=== PATIENT | male | born 1955 | race Caucasian/White ===

== ENCOUNTER 2020-01-10 11:30 | Outpatient (REF) | payer BC, SELFPAY ==
[2020-01-10 12:02] LABS: COVID-19 Test Negative (Negative)
== END 2020-01-10 11:31 | disposition home or self-care (01) ==
LOC: HO.LAB 11:30
PROVIDERS: Visit Provider Internal Medicine
DX: Z20.828 Contact with and (suspected) exposure to other viral communicable diseases (principal)
CPT/HCPCS: 87635

== ENCOUNTER 2020-01-14 13:11 | Outpatient (REF) | payer BC, SELFPAY ==
[2020-01-14 13:55] LABS: COVID-19 Test Negative (Negative)
== END 2020-01-14 13:12 | disposition home or self-care (01) ==
LOC: HO.LAB 13:11
PROVIDERS: Visit Provider Internal Medicine
DX: Z20.828 Contact with and (suspected) exposure to other viral communicable diseases (principal)
CPT/HCPCS: 87635

== ENCOUNTER → 2020-01-29 13:03 | Outpatient (REF) | payer BC, SELFPAY ==
--- NOTE | 2020-01-29 13:09 | CA_ITS ---
Transthoracic Echocardiogram Patient (Last, First, Middle): Caleb Zheng, Gender: Male Date of : 1955 Age: 64 Procedure Date: 01/29/2020 Procedure Type: Transthoracic Echocardiogram Location: OP Height: 182.88 cm Weight: 86.18 kg BSA: 2.08 m2 Heart Rate: bpm BP: 110 / 72 mmHg Floorperson: MABEL Schmidt MD: Lauryn Orellana [employer] SUPERVISOR Yarding Engineer: Rogelio An MD Symptoms: PALPITATIONS Study Quality: Good ECG Rhythm: Sinus Conclusions: - 1. Normal LV systolic function with grade 1 diastolic dysfunction 2. Mildly calcified aortic valve with mild aortic regurgitation 3. Mildly dilated ascending aorta, consider CTA of the chest 4. Normal RV systolic pressure 5. No pericardial effusion Findings Left Ventricle Normal left ventricular size, thickness, and systolic function. The visually estimated ejection fraction is between 60-65%. Spectral Doppler is indicative of an impaired relaxation filling pattern. E/E prime ratio is <8, consistent with normal filling pressures. Evidence suggests grade I (mild) diastolic dysfunction. Right Ventricle Normal right ventricular cavity size and systolic function. Atria Both atria are normal in size. There is lipomatous hypertrophy of the interatrial septum. There is no evidence of interatrial shunt. Aortic Valve There is mild calcification of the aortic valve. There is mild thickening of the aortic valve. There is no aortic valve stenosis. There is mild aortic valve regurgitation. Mitral Valve Normal mitral valve structure and function. There is no mitral valve regurgitation. There is no mitral valve stenosis. Pulmonic Valve The pulmonic valve is likely normal. Tricuspid Valve Normal tricuspid valve structure. There is trace tricuspid valve regurgitation. The right ventricular systolic pressure is normal. The right ventricular systolic pressure is 30 mmHg. Normal right atrial pressure. There is no evidence of pulmonary hypertension. Great Vessels The pulmonary artery was not well visualized. There is mild dilatation of the sinuses of Valsalva measuring 4.00 cm and mild dilatation of the ascending aorta measuring 3.87 cm. Venous The inferior vena cava is normal in size and collapses greater than 50% with inspiration. Pericardium/Pleural There is no evidence of pericardial effusion. Prior Study Comparison No prior study available for comparison. Measurements 2D Linear Measurements RVIDd: 3.48 RVIDd Index: 1.67 IVSd: 1.03 0.6-0.9/0.6-1.0 cm LVIDd: 5.17 3.9-5.3/4.2-5.9 cm LVIDd Index: 2.49 2.4-3.2/2.2-3.1 cm/m2 LVIDs: 3.62 2.0-3.6 cm LVPWd: 0.67 0.7-1.1 cm Ao Root: 4.00 2.1-3.5 cm LA Diam: 3.70 2.7-3.8/3.0-4.0 cm LAIDs Index: 1.78 1.5-2.3 cm/m2 LV Mass: 193.94 67-162/88-224 g LV Mass Index: 93.24 43-95/49-115 g/m2 LVOT Diam: 2.20 3.0+(-)1.3 cm 2D Systolic Function EF 4C: 56.40 >55% EF 2C: 55.00 >55% Mitral Valve MV Pk E: 0.59 MV PK A: 1.20 MV Decel Time: 195.00 E/A: 0.50 E'Lateral: 6.42 E'Medial: 6.31 E/E' Med: 9.40 E/E' Lat: 9.30 Aortic Valve AoV Pk Janes: 1.43 AoV Mn Janes: 0.98 AoV VTI: 0.23 AoV Pk Grad: 8.00 Aov Mn Grad: 4.00 EDSON Cont.VTI: 2.55 LVOT LVOT Pk Janes: 1.12 LVOT Mn Janes: 0.67 LVOT VTI: 0.16 LVOT Pk Grad: 5.00 LVOT Mn Grad: 2.00 LVOT Diam: 2.20 LVOT Area: 3.80 Diastolic Function MV Pk E: 0.59 MV Pk A: 1.20 E/A: 0.50 E'Medial: 6.31 E/E' Med: 9.40 E' Laterial: 6.42 E/E' Lat: 9.30 Tricuspid Valve TR Pk Janes: 2.32 TR Pk Grad: 22.00 RA Press: 8.00 RVSP: 30.00 Great Vessels Aorta Ao Root-2D: 4.00 2.0-3.7 cm Sinus of Valsalva: 4.00 2.0-3.5 cm Ao Asc: 3.87 2.1-3.4 cm Ao Arch: 2.70 Updated in Other Vendor System with Status of Final Rogelio An MD electronically signed on 01/30/2020 10:05:03 AM with status of Final
== END ==
LOC: HO.CARD 13:03
PROVIDERS: PCP Nurse Practitioner Family; Visit Provider Nurse Practitioner Family
DX: R00.2 Palpitations (principal)
CPT/HCPCS: 93306

== ENCOUNTER 2020-01-29 16:21 | Outpatient (REF) | payer BC, SELFPAY ==
--- NOTE | 2020-01-29 | MR_ITS ---
EXAMINATION: MR BRAIN WITHOUT AND WITH CONTRAST CLINICAL INFORMATION: Left pulsatile tinnitus. Acoustic neuroma. COMPARISON: There are no prior studies available for comparison at time of dictation. TECHNIQUE: Multiplanar, multisequence MRI of the brain was obtained before and after the intravenous administration of 9 mL Gadavist. FINDINGS: The VII and VIII cranial nerve complexes are normal in course and caliber. No signal abnormality is visualized within the inner ear structures on the precontrast axial T1-weighted sequence. Fluid signal is preserved within the cochlea, semicircular canals, and vestibule on the high-resolution axial CISS sequence. No cerebellopontine angle lesion is noted. There is no abnormal labyrinthine or intracanalicular enhancement on postcontrast imaging. No diffusion abnormality is seen. Brain parenchymal signal is unremarkable. There is mild commensurate prominence of the ventricles and sulci. No mass effect or midline shift is evident. No extra-axial fluid collections are noted. The cerebellum appears normal. On postcontrast imaging, there is no abnormal parenchymal or leptomeningeal enhancement. There is no abnormal susceptibility signal on the gradient images. The craniovertebral junction, marrow signal, and midline structures are normal. The visualized portions of the major intracranial flow-voids at the level of the [place] are preserved. The vertebral arteries are dolichoectatic, and causes mass effect on the left medulla. The dural venous sinus flow-voids are maintained. The mastoid air cells are well-aerated. There are retention cysts in the bilateral maxillary sinuses. MR/MR head/brain wo/w con IMPRESSION: 1. There are no acute bleeds or infarcts. There are no masses or areas of abnormal enhancement. 2. The CP angles and internal auditory canals appear normal bilaterally. 3. 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
[2020-01-29 14:15] LABS: Blood Urea Nitrogen 18 mg/dL (9-16); Estimated Glomerular Filt Rate > 60
== END 2020-01-29 16:22 | disposition home or self-care (01) ==
LOC: HO.MRI 16:21
PROVIDERS: Visit Provider Otolaryngology
DX: D33.3 Benign neoplasm of cranial nerves (principal); H93.12 Tinnitus, left ear
CPT/HCPCS: 70553; 82565; 84520; A9585

== ENCOUNTER 2020-02-24 09:18 | Outpatient (REF) | payer BC, SELFPAY ==
[2020-02-24 09:54] LABS: COVID-19 Test Negative (Negative); IDNOW Serial# 9DD0AD1C
== END 2020-02-24 09:19 | disposition home or self-care (01) ==
LOC: HO.LAB 09:18
PROVIDERS: PCP Nurse Practitioner Family; Visit Provider Internal Medicine
DX: Z20.828 Contact with and (suspected) exposure to other viral communicable diseases (principal)
CPT/HCPCS: 87635

== ENCOUNTER 2020-04-19 10:43 | Outpatient (REF) | payer OTHER, SELFPAY ==
[2020-04-19 11:23] LABS: COVID-19 Test Negative (Negative)
== END 2020-04-19 10:44 | disposition home or self-care (01) ==
LOC: HO.LAB 10:43
PROVIDERS: Visit Provider Internal Medicine
DX: Z20.822 Contact with and (suspected) exposure to COVID-19 (principal)
CPT/HCPCS: 36415; 87635

== ENCOUNTER 2020-04-25 11:07 | Outpatient (REF) | payer BC, SELFPAY ==
--- NOTE | ~2020-04-25 | XR_ITS ---
EXAMINATION: XR CHEST CLINICAL INFORMATION: Cough. COMPARISON: Chest 07/08/2019 TECHNIQUE: Frontal view of the chest was obtained. FINDINGS: No significant abnormality is noted involving the heart, lungs, mediastinum, bony thorax or soft tissues. XR/XR chest 1V IMPRESSION: Unremarkable chest examination.
[2020-04-25 12:41] LABS: Influenza A PCR NEGATIVE (Negative); Influenza B PCR NEGATIVE (Negative); Resp Syncy Virus RNA Qual PCR NEGATIVE (Negative); SARS COV2 PCR INHOUSE NEGATIVE (Negative)
== END 2020-04-25 11:08 | disposition home or self-care (01) ==
LOC: HO.LAB 11:07
PROVIDERS: PCP Family Medicine; Visit Provider Nurse Practitioner Primary Care
DX: Z20.822 Contact with and (suspected) exposure to COVID-19 (principal); R05 Cough
CPT/HCPCS: 0241U; 36415; 71045

== ENCOUNTER 2021-01-27 16:13 | Outpatient (REF) | payer BC, SELFPAY ==
[2021-01-27 16:41] LABS: COVID-19 Test Negative (Negative)
== END 2021-01-27 16:14 | disposition home or self-care (01) ==
LOC: HO.LAB 16:13
PROVIDERS: Visit Provider Internal Medicine
DX: Z20.822 Contact with and (suspected) exposure to COVID-19 (principal)
CPT/HCPCS: 36415; 87635; C9803

== ENCOUNTER 2021-03-27 13:53 | Outpatient (REF) | payer BC, SELFPAY ==
[2021-03-27 14:20] LABS: COVID-19 Test Negative (Negative); IDNOW Serial# 08D9AD1C
== END 2021-03-27 13:54 | disposition home or self-care (01) ==
LOC: HO.LAB 13:53
PROVIDERS: Visit Provider Internal Medicine
DX: Z20.822 Contact with and (suspected) exposure to COVID-19 (principal)
CPT/HCPCS: 87635

== ENCOUNTER 2021-04-02 11:31 | Outpatient (REF) | payer BC, SELFPAY ==
[2021-04-02 14:35] LABS: COVID-19 Test Negative (Negative); IDNOW Serial# 08D9AD1C
== END 2021-04-02 11:32 | disposition home or self-care (01) ==
LOC: HO.LAB 11:31
PROVIDERS: PCP Family Medicine; Visit Provider Internal Medicine
DX: Z20.822 Contact with and (suspected) exposure to COVID-19 (principal)
CPT/HCPCS: 87635

== ENCOUNTER 2021-04-09 18:12 | Emergency (ER) | payer BC, MEDICARE, SELFPAY ==
--- NOTE | ~2021-04-09 | CT_ITS ---
EXAMINATION: CT ANGIOGRAM OF THE CHEST WITH AND WITHOUT CONTRAST (CT PULMONARY ANGIOGRAM FOR PE) CLINICAL INFORMATION: Reason for Exam Elevated D-dimer. History of PE. SOB. COMPARISON: CT dated 06/16/2019 TECHNIQUE: Prior to contrast administration, noncontrast localization images were obtained. Subsequently, multidetector volumetric imaging was performed from the thoracic inlet to below the diaphragms following the administration of 65 mL Omnipaque 350 intravenous contrast. No contrast reaction reported Sagittal, coronal, and MIP oblique sagittal reformatted images were obtained on the CT workstation, uploaded to PACS, and reviewed. This CT examination was performed using dose optimization techniques as appropriate, variously including the following: *Automated exposure control *Adjustment of mA and/or kV according to patient size (this includes techniques or standardized protocols for targeted exams where dose is matched to indication/reason for exam; i.e. extremities or head) *Use of iterative reconstruction technique Total exam dose-length product 292 mGy-cm FINDINGS: QUALITY OF STUDY/CONTRAST BOLUS: Satisfactory to the mid segmental level, limited slightly by bolus timing and breathing artifact at the lung bases. PULMONARY ARTERIES: No central or segmental pulmonary emboli. THORACIC AORTA: No aneurysm or dissection. LUNG: No focal consolidation. Central airways are clear. Small juxtapleural nodules at the right lung apex on images 51 and 50 of series 7 are unchanged dating back to the prior study and measure 4 mm in average diameter, benign by time criteria. PLEURA: No pleural effusion or pneumothorax. Mild apical scarring. MEDIASTINUM: Normal heart size. No pericardial effusion. No hilar or mediastinal lymphadenopathy. No evidence of septal bowing or right heart strain. CHEST WALL/AXILLA: No axillary or internal mammary lymphadenopathy. OSSEOUS STRUCTURES: Mild multilevel degenerative spondylosis in the thoracic spine with slight scoliotic curvature. No acute fractures or aggressive osseous abnormalities are identified. UPPER ABDOMEN: Cholelithiasis. No CT findings of acute cholecystitis. There is a large 6 cm simple appearing right renal cysts with a density of 1 Hounsfield unit. No recommend imaging follow-up. No reflux of contrast into the hepatic veins to suggest elevated right heart pressures. CT/CT angio chest PE protocol IMPRESSION: 1. No acute cardiopulmonary findings. No evidence of pulmonary emboli. 2. Cholelithiasis without evidence of acute cholecystitis. VTE: negative
--- NOTE | 2021-04-09 18:46 | ECG_ITS ---
Test Reason : pe? Blood Pressure : / mmHG Vent. Rate : 085 BPM Atrial Rate : 085 BPM P-R Int : 180 ms QRS Dur : 076 ms QT Int : 362 ms P-R-T Axes : 068 -38 063 degrees QTc Int : 430 ms Normal sinus rhythm Left axis deviation Abnormal ECG When compared with ECG of 16-JUN-2019 12:53, No significant change was found Referred By: Nirmala Paiz Electronically Signed By:Kirk Ortega
[2021-04-09 19:01] LABS: MANUAL DIFF FLAG NO
[2021-04-09 19:03] LABS: Basophils Percent Auto 0.6 % (0-2); Eosinophils Absolute Auto 0.2 X10*3/uL (0.0-0.4); Eosinophils Percent Auto 2.1 % (0-4); Hematocrit 43.6 % (42.0-52.0); Hemoglobin 14.7 g/dl (14.0-18.0); Imm Gran Abs Auto 0.06 X10*3/uL (0.00-0.03); Imm Gran Pct Auto 0.8 % (0.0-0.4); Lymphocytes Absolute Auto 0.9 X10*3/uL (1.2-4.9); Lymphocytes Percent Auto 12.4 % (20-40); Mean Corpuscular HGB Conc 33.7 g/dl (31.0-36.0); Mean Corpuscular Hemoglobin 30.1 pg (27.0-33.0); Mean Corpuscular Volume 89.2 fL (80.0-98.0); Monocytes Absolute Auto 0.8 X10*3/uL (0.1-1.2); Monocytes Percent Auto 10.9 % (2-11); Neutrophils Absolute Auto 5.2 x10*3/uL (2.0-8.3); Neutrophils Percent Auto 73.2 % (45-73); Platelet Count 293 X10*3/uL (160-400); Red Blood Count 4.89 X10*6/uL (4.60-5.80); Red Cell Distribution Width 12.7 % (11.0-16.0); White Blood Count 7.2 X10*3/uL (4.8-10.8)
[2021-04-09 19:06] VITALS: BP 133/89; PULSE 97; RESP 16; TEMP 36.9; O2SAT 98; BMI 25.7
[2021-04-09 19:16] LABS: Anion Gap 13 (12-20); Blood Urea Nitrogen 24 mg/dL (9-16); Calcium 9.6 mg/dL (8.4-10.2); Carbon Dioxide 28 mmol/L (22-29); Chloride 107 mmol/L (96-108); Creatinine Clr Calc Pharmacy 90.4; Estimated Glomerular Filt Rate > 60; Glucose Random 100 mg/dL (60-115); Potassium 4.6 mmol/L (3.3-5.1); Sodium 143 mmol/L (135-145)
[2021-04-09 19:23] LABS: B Type Natriuretic Peptide < 10 pg/mL (<100); Troponin-I High Sensitivity < 3.5 ng/L (<3.5-35.0)
[2021-04-09 19:26] LABS: INTERNATIONAL NORM RATIO 1.1 (0.9-1.1); Prothrombin Time 12.2 SEC (9.9-13.0)
[2021-04-09] MEDS: iohexoL 350 MG/ML 100 ML INFUS..BTL 65 ML IV (19:26)
[2021-04-09 19:52] LABS: Partial Thromboplastin Time 31.4 SEC (24.1-38.0)
--- NOTE | 2021-04-09 20:32 | ED_ITS ---
HPI - General Adult General Chief complaint: General Medical Stated complaint: SOB, Abnormal Labs Time Seen by Provider: 04/09/21 18:21 Source: patient Mode of arrival: ambulatory History of Present Illness HPI narrative: 66-year-old male with a past medical history of PE no longer on anticoagulation presenting to the ED complaining of exertional SOB x a few days and nonproductive cough. patient had outpatient labs done with PCP earlier today which showed elevated D-dimer to 1365 and was recommended ED evaluation to rule out PE. Denies fever, chills, chest pain, nausea / vomiting, pedal edema, recent travel, leg swelling, calf pain Onset (ago): day(s) Related Data Allergies Allergy/AdvReac Type Severity Reaction Status Date / Time No Known Allergies Allergy Unverified 12/06/19 17:50 [No Known Allergies*] Review of Systems Review of Systems: Constitutional: No Fever, No Chills, No Fatigue, No Malaise ENT/Mouth: No Ear Pain, No Nasal Congestion, No sore throat, No Rhinorrhea Eyes: No Eye Pain, No Swelling, No Redness Cardiovascular: No Chest Pain, No SOB, + Dyspnea on Exertion, No Orthopnea, No Edema, No Palpitations Respiratory: No Cough, No Sputum, No Wheezing, No Smoke Exposure, No Dyspnea Gastrointestinal: No Nausea, No Vomiting, No Diarrhea, No Constipation, No Abdominal pain Genitourinary: No Dysuria, No Urinary Frequency, No Hematuria, No Flank Pain Musculoskeletal: No joint pain, No Myalgias, No Joint Swelling Skin: No Skin Lesions, No rash Neuro: No Weakness, NNo Dizziness, No Headache Yes all other systems are reviewed and are negative [facility] Past Medical History Attestation statement: The following information was validated with the patient. Social History Social History Advance Directives: No Advance Directives Information Provided: No Physical Exam Vital Signs: Vital Signs: Last Vital Signs Temp 98.5 F 04/09/21 19:06 Pulse 97 04/09/21 19:06 Resp 16 04/09/21 19:06 BP 133/89 04/09/21 19:06 Pulse Ox 98 04/09/21 19:06 BMI result Body Mass Index 25.7 Const: General: cooperative, healthy appearing and no acute distress O rientation/consciousness: patient oriented x3 Limitations: no limitations HENMT: Head: Yes normal to inspection and Yes atraumatic Ears: hearing grossly normal bilaterally General nose exam: Normal external nose present Face and sinus: Yes normal facial exam Eyes: General: appearance normal, both eyes and all related structures EOM: EOMs intact bilaterally Neck: Neck: Yes normal visual inspection and Yes no meningeal signs Resp: Effort & Inspection: normal respiratory effort, no respiratory distress and no stridor Auscultation: clear to auscultation bilaterally Cardio: Rate: regular rate Heart sounds: S1 normal heart sound present and S2 normal heart sound present GI: Inspection: Yes normal to inspection Skin: Rashes: no rashes Wounds: no wounds Neuro: General: patient oriented x3 and no meningeal signs Gait exam (Neuro): Normal gait present Extrem: General: Yes normal to inspection, Yes no pedal edema and Yes no calf tenderness Course Course Course Narrative: -no leukocytosis. H&H stable. Coags WNL. BUN mildly elevated (21 on outpatient labs from earlier today), troponin negative. BNP negative -2031--CT angio chest PE protocol IMPRESSION: 1. No acute cardiopulmonary findings. No evidence of pulmonary emboli. 2. Cholelithiasis without evidence of acute cholecystitis. ? VTE: negative - COVID-19/influenza/ RSV negative results discussed with patient including worrisome signs and symptoms and strict return precautions and need close follow-up with PCP Medical Decision Making MDM Narrative Medical decision making narrative: 66-year-old male with a past medical history of PE no longer on anticoagulation presenting to the ED complaining of exertional SOB x a few days and nonproductive cough. on exam vital signs s table, NAD/nontoxic, no respiratory distress, no pedal edema. Concern for PE with patient's history and elevated D-dimer vs viral syndrome /COVID-19 vs ?pneumonia. Symptoms atypical for ACS Plan: EKG, labs, CTA, COVID-19 testing Medical Records Medical records reviewed: Yes I reviewed the patient's medical records. Lab Data Lab results reviewed: Yes I reviewed the patient's lab results. Result diagrams: 04/09/21 18:57 04/09/21 18:57 Labs: Lab Results 04/09/21 04/09/21 04/09/21 Range/Units 18:57 18:57 18:57 WBC 7.2 (4.8-10.8) X10*3/uL RBC 4.89 (4.60-5.80) X10*6/uL Hgb 14.7 (14.0-18.0) g/dl Hct 43.6 (42.0-52.0) % MCV 89.2 (80.0-98.0) fL MCH 30.1 (27.0-33.0) pg MCHC 33.7 (31.0-36.0) g/dl RDW 12.7 (11.0-16.0) % Plt Count 293 (160-400) X10*3/uL MPV 9.0 L (9.4-12.4) fL Immature Gran % (Auto) 0.8 H (0.0-0.4) % Neut % (Auto) 73.2 H (45-73) % Lymph % (Auto) 12.4 L (20-40) % [place] % (Auto) 10.9 (2-11) % Eos % (Auto) 2.1 (0-4) % Baso % (Auto) 0.6 (0-2) % Lymph # (Auto) 0.9 L (1.2-4.9) X10*3/uL [place] # (Auto) 0.8 (0.1-1.2) X10*3/uL Eos # (Auto) 0.2 (0.0-0.4) X10*3/uL Baso # (Auto) 0.0 (0.0-0.2) X10*3/uL Abs Immat Gran (auto) 0.06 H (0.00-0.03) X10*3/uL Absolute Neuts (auto) 5.2 (2.0-8.3) x10*3/uL Absolute Nucleated RBC 0.000 (0.0-0.012) X10*3/uL Nucleated RBC % (auto) 0.0 (0.0-0.2) /100WBC PT (9.9-13.0) SEC INR (0.9-1.1) APTT (24.1-38.0) SEC Sodium 143 (135-145) mmol/L Potassium 4.6 (3.3-5.1) mmol/L Chloride 107 (96-108) mmol/L Carbon Dioxide 28 (22-29) mmol/L Anion Gap 13 (12-20) BUN 24 H (9-16) mg/dL Creatinine 0.87 (0.5-1.4) mg/dL Estim Creat Clear Calc 90.4 Estimated GFR > 60 Random Glucose 100 (60-115) mg/dL Calcium 9.6 (8.4-10.2) mg/dL Troponin I High Sens < 3.5 (<3.5-35.0) ng/L B-Natriuretic Peptide < 10 (<100) pg/mL Influenza Type A (PCR) (Negative) Influenza Type B (PCR) (Negative) RSV RNA Qual (PCR) (Negative) SARS-CoV-2 RNA (RT-PCR) (Negative) 04/09/21 04/09/21 Range/Units 18:57 20:19 WBC (4.8-10.8) X10*3/uL RBC (4.60-5.80) X10*6/uL Hgb (14.0-18.0) g/dl Hct (42.0-52.0) % MCV (80.0-98.0) fL MCH (27.0-33.0) pg MCHC (31.0-36.0) g/dl RDW (11.0-16.0) % Plt Count (160-400) X10*3/uL MPV (9.4-12.4) fL Immature Gran % (Auto) (0.0-0.4) % Neut % (Auto) (45-73) % Lymph % (Auto) (20-40) % [place] % (Auto) (2-11) % Eos % (Auto) (0-4) % Baso % (Auto) (0-2) % Lymph # (Auto) (1.2-4.9) X10*3/uL [place] # (Auto) (0.1-1.2) X10*3/uL Eos # (Auto) (0.0-0.4) X10*3/uL Baso # (Auto) (0.0-0.2) X10*3/uL Abs Immat Gran (auto) (0.00-0.03) X10*3/uL Absolute Neuts (auto) (2.0-8.3) x10*3/uL Absolute Nucleated RBC (0.0-0.012) X10*3/uL Nucleated RBC % (auto) (0.0-0.2) /100WBC PT 12.2 (9.9-13.0) SEC INR 1.1 (0.9-1.1) APTT 31.4 (24.1-38.0) SEC Sodium (135-145) mmol/L Potassium (3.3-5.1) mmol/L Chloride (96-108) mmol/L Carbon Dioxide (22-29) mmol/L Anion Gap (12-20) BUN (9-16) mg/dL Creatinine (0.5-1.4) mg/dL Estim Creat Clear Calc Estimated GFR Random Glucose (60-115) mg/dL Calcium (8.4-10.2) mg/dL Troponin I High Sens (<3.5-35.0) ng/L B-Natriuretic Peptide (<100) pg/mL Influenza Type A (PCR) NEGATIVE (Negative) Influenza Type B (PCR) NEGATIVE (Negative) RSV RNA Qual (PCR) NEGATIVE (Negative) SARS-CoV-2 RNA (RT-PCR) NEGATIVE (Negative) ECG Data Attestation: I personally reviewed and interpreted this ECG as follows: Interpretation: EKG normal sinus rhythm at a rate of 85. Pr interval 180. QTC 430. No STEMI. Artifact present. Nonischemic Discharge Plan Discharge Clinical Impression: Shortness of breath Patient Disposition: Home, Self-Care Instructions: Shortness of Breath (ED) Additional Instructions: Your blood work was reassuring. Your CTA was negative for any blood clots. You tested negative for COVID-19, flu, and RSV It is important for you to follow-up with your doctor If her symptoms persist or worsen, constant worsening shortness of breath, chest pain, fever, or cough please return to the ED Referrals: Gonzalo Chaidez MD [Primary Care Provider] - 2 days Interventions: ED Discharge Assessment Last Done: 04/10/21 00:22 Discharge Date/Time: 04/10/21 00:24
[2021-04-09 21:03] LABS: Influenza A PCR NEGATIVE (Negative); Influenza B PCR NEGATIVE (Negative); Resp Syncy Virus RNA Qual PCR NEGATIVE (Negative); SARS COV2 PCR INHOUSE NEGATIVE (Negative)
== END 2021-04-10 00:24 | disposition home or self-care (01) ==
PROVIDERS: Physician Assistant; Emergency Provider Internal Medicine; PCP Family Medicine
DX: R06.02 Shortness of breath (principal); Z20.822 Contact with and (suspected) exposure to COVID-19; Z86.711 Personal history of pulmonary embolism
CPT/HCPCS: 0241U; 36415; 71275; 80048; 83880; 84484; 85025; 85610; 85730; 93005; 99284; Q9967

== ENCOUNTER 2021-06-14 17:09 | Emergency (ER) | payer BC, MEDICARE, SELFPAY ==
--- NOTE | ~2021-06-14 | XR_ITS ---
EXAMINATION: XR FINGER, LEFT CLINICAL INFORMATION: Thumb injury COMPARISON: None TECHNIQUE: Three views of the left thumb. FINDINGS: Bone alignment is normal. No fracture or dislocation is seen. There is arthritis at the IP and MCP and [employer] joints of the thumb. There is soft tissue swelling adjacent to the MCP joint of the thumb. PA view of the hand demonstrates arthritis at the PIP joint of the fifth finger as well. XR/XR finger LT min 2V IMPRESSION: Arthritis. No fracture or dislocation.
[2021-06-14 17:13] VITALS: BP 165/80; PULSE 97; RESP 16; TEMP 37.1; O2SAT 100; BMI 25.7
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
== END 2021-06-14 18:34 | disposition home or self-care (01) ==
PROVIDERS: Emergency Provider Internal Medicine; PCP Family Medicine
DX: S63.602A Unspecified sprain of left thumb, initial encounter (principal); X58.XXXA Exposure to other specified factors, initial encounter; Y93.9 Activity, unspecified; Y92.9 Unspecified place or not applicable; Y99.9 Unspecified external cause status
CPT/HCPCS: 29130; 73140; 99284

== ENCOUNTER 2022-11-27 10:09 | Outpatient (REF) | payer MEDICARE, BC, SELFPAY ==
--- NOTE | ~2022-11-27 | US_ITS ---
EXAMINATION: US VENOUS ULTRASOUND WITH DOPPLER LOWER EXTREMITY, RIGHT CLINICAL INFORMATION: History of DVT. Calf pain. COMPARISON: None available. TECHNIQUE: Ultrasound of the deep veins is performed from the hip to the calf with compression sonography and color and pulse Doppler assessment. Spectral analysis with color-flow imaging is performed. FINDINGS: There is normal venous compression and respiratory variation and augmented flow. The visualized common femoral vein, superficial femoral vein, profunda femoral vein, popliteal vein, and the trifurcation region shows no evidence of deep venous thrombosis. There is a thrombus visualized within the superficial saphenous vein proximal segment with a subtle hypoechoic area within measuring 1.69 cm consistent acute on chronic thrombus. There are varicose veins present in the right calf with and moderate edema. There is no significant popliteal fossa cyst. If the patient's symptoms persist, followup ultrasound in 5 days 7 days might be of value to exclude proximal propagation from a non-visualized calf vein. US/US venous duplex LE RT IMPRESSION: No DVT demonstrated in the right lower extremity. Acute and chronic clot within the superficial saphenous vein. Mild calf edema.
== END 2022-11-27 10:10 | disposition home or self-care (01) ==
LOC: HO.US 10:09
PROVIDERS: PCP Family Medicine; Visit Provider Nurse Practitioner Family
DX: Z86.718 Personal history of other venous thrombosis and embolism (principal)
CPT/HCPCS: 93971

== ENCOUNTER 2022-11-30 20:08 | Inpatient (IN) | payer MEDICARE, SELFPAY ==
--- NOTE | ~2022-11-30 | CT_ITS ---
EXAMINATION: CT FEMUR WITHOUT CONTRAST, RIGHT CLINICAL INFORMATION: Right thigh swelling. COMPARISON: X-ray 11/30/2022. Ultrasound 11/30/2022. TECHNIQUE: Axial imaging without contrast. Sagittal and coronal reconstructions. This CT examination was performed using dose optimization techniques as appropriate, variously including the following: *Automated exposure control *Adjustment of mA and/or kV according to patient size (this includes techniques or standardized protocols for targeted exams where dose is matched to indication/reason for exam; i.e. extremities or head) *Use of iterative reconstruction technique DLP: 489 mGy-cm FINDINGS: There is a large knee joint effusion. Hounsfield measurements simple fluid, suggestive of complex fluid. There are multiple foci of air within the joint space, of indeterminate etiology. If there has been recent procedure, this could be related to postprocedural changes. Infectious etiology cannot be excluded. There is mild-moderate right hip arthritis. Moderate tricompartment arthritis in the right knee. No visible acute fracture or dislocation. Limited evaluation of the muscles on the noncontrast CT. There are extensive areas of patchy low attenuation in the vastus intermedius and the vastus lateralis muscles, which is nonspecific in nature. This of indeterminate etiology. Findings raise concern for muscle abnormality, which could reflect edema, differential considerations include inflammatory, infectious etiologies. No measurable muscle defect or tear is identified. Circumferential soft tissue swelling and subcutaneous edema in the mid lower extremity, more prominent along the anterior/lateral aspect of the thigh. No groin lymphadenopathy. Urinary bladder appears unremarkable. No significant free fluid in the pelvis. CT/CT femur RT wo IV con IMPRESSION: 1. Large complex knee joint effusion, of indeterminate etiology. Differential considerations include inflammatory, infectious etiologies, hemarthrosis. Of note, there is air within the joint space, possibly from infection, as detailed below. Clinically correlate. Further evaluation with joint aspiration as clinically warranted. 2. There are foci of air within the knee joint space. Infectious process related to be considered in the appropriate clinical circumstance.. If there has been recent procedure, this could be related to postprocedural changes. 3. Extensive areas of heterogeneous low attenuation, especially involving the vastus intermedius and vastus lateralis muscles. This is incompletely and suboptimally evaluated on the noncontrast CT. The etiology of this has not been determined. Differential considerations include, and is not limited to, myositis, infectious, inflammatory process. Recommend clinical correlation and management. Further evaluation MRI without and with contrast, as clinically indicated. 4. Extensive circumferential soft tissue swelling and subcutaneous edema, as detailed above. 5. Mild-moderate right hip arthritis. 6. Moderate tricompartment arthritis right knee. 7. Additional findings and details, as above. The report will be called to the ordering clinician by a [facility] Vascular Surgeon.
--- NOTE | ~2022-11-30 | XR_ITS ---
EXAMINATION: XR KNEE, RIGHT CLINICAL INFORMATION: Status post surgery and swelling. COMPARISON: None available. TECHNIQUE: Four views of the right knee. FINDINGS: A large suprapatellar hyperdense effusion is present, may represent hemarthrosis. Moderate tricompartmental degenerative osteoarthrosis with most pronounced changes seen at the medial compartment. No radiographic evidence of any fracture, subluxation or dislocation. Enthesopathy at the insertional site of the both quadriceps and infrapatellar tendons. Infrapatellar fat of fat appear unremarkable. XR/XR knee RT 3V IMPRESSION: Abnormal study. A large suprapatellar hyperdense effusion is present may represent hemarthrosis. No radiographic evidence of any displaced fracture, subluxation or dislocation.
--- NOTE | ~2022-11-30 | US_ITS ---
EXAMINATION: US VENOUS ULTRASOUND WITH DOPPLER LOWER EXTREMITY, RIGHT CLINICAL INFORMATION: Swelling with recent superficial thrombophlebitis COMPARISON: None available. TECHNIQUE: Ultrasound of the deep veins is performed from the hip to the calf with compression sonography and color and pulse Doppler assessment. Spectral analysis with color-flow imaging is performed. FINDINGS: There is normal venous compression and respiratory variation and augmented flow. The visualized common femoral vein, superficial femoral vein, profunda femoral vein, popliteal vein, and the trifurcation region shows no evidence of deep venous thrombosis. There is no significant popliteal fossa cyst. Again clot is seen within the superficial saphenous vein and varicosities but there is no extension into the deep venous system. Complex joint effusion is seen etiology of this new complex joint effusion is uncertain but this was seen as well on the plain films from earlier tonight If the patient's symptoms persist, followup ultrasound in 5 days 7 days might be of value to exclude proximal propagation from a non-visualized calf vein. US/US venous duplex LE RT IMPRESSION: 1. No DVT demonstrated in the right lower extremity. 2. There is clot again seen within the superficial saphenous vein and varicosities but no extension into the deep venous system. This was noted on the prior 11/27/2022 study as well 3. There is a new complex joint effusion seen in the right knee. Etiology of this is uncertain but this was seen as well on the plain films from earlier tonight. By report patient was recently started on L request. A hemarthrosis cannot be excluded
--- NOTE | ~2022-11-30 | US_ITS ---
EXAMINATION: US VENOUS ULTRASOUND WITH DOPPLER LOWER EXTREMITY, RIGHT CLINICAL INFORMATION: Right leg swelling history of phlebitis thyroid for DVT COMPARISON: Ultrasound venous Doppler lower extremity right from 11/30/2022 TECHNIQUE: Ultrasound of the deep veins is performed from the hip to the calf with compression sonography and color and pulse Doppler assessment. Spectral analysis with color-flow imaging is performed. FINDINGS: Redemonstration of thrombus within the small saphenous vein and varicosities, improved from prior imaging. There is normal venous compression and respiratory variation and augmented flow. The visualized common femoral vein, superficial femoral vein, profunda femoral vein, popliteal vein, and the trifurcation region shows no evidence of deep venous thrombosis. There is no significant popliteal fossa cyst. Redemonstration of complex fluid collection superior to the knee measuring 9.3 x 2.7 x 10.8 cm with overlying vascular flow, nonspecific. If the patient's symptoms persist, followup ultrasound in 5 days 7 days might be of value to exclude proximal propagation from a non-visualized calf vein. US/US venous duplex LE RT IMPRESSION: 1. No DVT demonstrated in the right lower extremity. 2. Redemonstration of thrombus within the small saphenous vein and varicosities, improved from prior imaging. 3. Redemonstration of complex fluid collection superior to the knee measuring 9.3 x 2.7 x 10.8 cm with overlying vascular flow, nonspecific.
[2022-11-30 20:11] VITALS: BP 145/90; PULSE 117; RESP 18; TEMP 37.6; O2SAT 97; BMI 25.8
--- NOTE | 2022-11-30 20:11 | ED.GENADULT ---
HPI - General Adult General Chief complaint: General Medical Stated complaint: swollen knee post op Time Seen by Provider: 11/30/22 20:22 Source: patient Mode of arrival: ambulatory Limitations: no limitations History of Present Illness HPI narrative: 67-year-old male with pmh of PE, Covid, and DVT in the past presents to the ED for Right knee swelling and redness since satruday. patient is s/p right knee arthroscopy at [facility] in [place] last week by Dr. Jaxson Schilling. Patient states two episodes of fever. patient states fever reading of 100.7 and WBC of 101.2. patient is on Eliquis due to superficial phlebitis your deep vein. patient states no chest pain or shortness of breath Related Data Home Medications Medication Instructions Recorded Confirmed acetaminophen 500 mg tablet 1,000 mg PO Q8H 12/01/22 12/01/22 apixaban 5 mg (74 tabs) tablets in 10 mg PO DIRECTED 12/01/22 12/01/22 a dose pack (Eliquis DVT-PE Treat 30D Start) clobetasol 0.05 % topical ointment 1 appl topical DAILY PRN Rash 12/01/22 12/01/22 etanercept 50 mg/mL (1 mL) 50 mg subcut Q28D PRN arthritis 12/01/22 12/01/22 subcutaneous pen injector (Enbrel flare SureClick) ondansetron HCl 4 mg tablet 4 mg PO Q8H PRN nausea 12/01/22 12/01/22 oxycodone 5 mg tablet 5 - 10 mg PO Q4H PRN pain 12/01/22 12/01/22 Allergies Allergy/AdvReac Type Severity Reaction Status Date / Time No Known Allergies Allergy Verified 12/30/21 16:00 [No Known Allergies*] Review of Systems Review of Systems: right knee swelling and pain with inability to bear weight. Patient states knee is stiff Yes all other systems are reviewed and are negative PMFSH Past Medical History Medical History Arthritis DVT of proximal leg (deep vein thrombosis) Surgical History H/O right knee surgery Social History Social History Household Members: Spouse Housing: House Do you presently have visiting nurse or other home services: No Alcohol intake: former Patient Tobacco Use Status: Never used Tobacco Smoked in Last 30 Days: No Patient Interested in Nicotine Replacement: No Patient Given Instructions on How to Stop Smoking: No Second Hand Smoke Exposure: No Use of substances other than those prescribed or required for medical reasons: No Substance Use Type: Marijuana Currently Displaying Signs/Symptoms of Drug Intoxication Withdrawal: No Any prior treatment program specific to substance use: No Have you been hit, kicked, punched, or otherwise hurt by someone within the past year? If so, by whom?: No Do you feel safe in your current relationship?: Yes Is there a partner from a previous relationship who is making you feel unsafe now?: No Are you made to feel afraid or neglected: No Are you DNR?: No Advance Directives: No Advance Directives Information Provided: No Advance Directives on File: No Do you have thoughts of harming others: None Do you have a plan to hurt others: No Plan Recently lost weight without trying: No Nutrition Risks: No Nutritional Risk Poor oral hygiene: No service: No Physical Exam ED Vital Signs: Vital Signs - 24 hr 11/30/22 20:11 12/01/22 00:04 12/01/22 01:07 Temperature 99.7 F 100.6 F H Pulse Rate 117 H 105 H Respiratory Rate 18 18 18 Blood Pressure 145/90 H 149/81 H Pulse Oximetry 97 97 Oxygen Delivery Method Room Air Room Air BMI result Body Mass Index 25.8 Const General: cooperative, healthy appearing, comfortable, no acute distress, well developed, alert, awake and Physically active Orientation/consciousness: oriented to person, oriented to place, oriented to time and patient oriented [facility]: Yes normal to inspection, Yes No palpable skull fracture present, Yes normocephalic, Yes atraumatic and No abrasion Eyes General: appearance normal, both eyes and all related structures Neck Neck: Yes normal visual inspection, Yes full ROM, Yes no lymphadenopathy, Yes no meningeal signs, Yes trachea midline, Yes supple, No anterior neck swelling and No tender Chest Chest palpation & inspection: normal inspection of the chest and normal palpation of entire chest wall Resp Effort & Inspection: normal respiratory effort and able to speak in complete sentences Auscultation: clear to auscultation bilaterally Cardio Jugular venous distension: no JVD Heart sounds: S1 normal heart sound present and S2 normal heart sound present GI Inspection: Yes normal to inspection and No abdominal wall ecchymosis Palpation (GI): Soft to palpation, not firm, nontender, no guarding and not rigid General: No CVA tenderness and Yes no CVA tenderness Back/Spine/Pelvis Back: no CVA tenderness, No CVA tenderness and No back tenderness Skin General skin exam: no rashes or lesions noted and elasticity normal Neuro General: oriented to person, oriented to place, oriented to time, patient oriented x3, tone normal, moves all extremities, Normal light touch and pain sensation, no meningeal signs, no focal motor deficits, CN's II-XI intact bilaterally and normal sensation to monofilament Extrem Other: knee is warm to touch. Patient not able to move knee. Knee is stiff. Erythema near suture sites. Knee swollen. vascular and neuro exam intact Psych Appearance: grossly normal, well kempt and not disheveled Course Course Course Narrative: RME: 67yo M w/PMHx R knee athroscopic clean out on 11/23/22 at [facility] c/o fever Tmax 101, R knee pain, swelling, slight erythema and decreased ROM x days. Admits had outpatient ultrasound on 11/27 which showed superficial thrombophlebitis however swelling is worsening. Denies recent injury/fall Low-grade fever 99 in triage, right knee with notable swelling, faint erythema, bandage intact, RLE edema/swelling noted Labs including lactic/blood cultures, x-ray, venous duplex ultrasound ordered Full HPI, ROS and PE to be performed by primary ED provider. Medications Administered Generic Name Dose Route Start Last Admin Trade Name Emily PRN Reason Stop Dose Admin Acetaminophen 650 mg 12/01/22 02:23 12/01/22 09:52 Acetaminophen 325 Mg Tablet PO 650 mg Q6H PRN Administration Pain, Mild (Pain Scale 1-3) Apixaban 10 mg 12/01/22 13:30 12/01/22 13:58 Apixaban 5 Mg Tablet PO 12/03/22 21:01 10 mg BID ANGLE Administration Celecoxib 200 mg 12/01/22 09:00 12/01/22 11:48 Celecoxib 200 Mg Capsule PO 200 mg BID ANGLE Administration Docusate Sodium 100 mg 12/01/22 09:00 12/01/22 11:48 Docusate Sodium 100 Mg Capsule PO 100 mg BID ANGLE Administration Hydromorphone HCl 0.25 mg 12/01/22 02:23 12/01/22 05:07 Hydromorphone Hcl 0.5 Mg/0.5 Ml Syringe IVPUSH 0.25 mg Q4H PRN Administration Pain, Severe (Pain Scale 7-10) Protocol Vancomycin HCl 1,000 mg/ 270 mls @ 270 mls/hr 12/01/22 13:00 12/01/22 15:11 Sodium Chloride IV Infused Q12H [facility] Infusion Oxycodone HCl 5 mg 12/01/22 02:23 12/01/22 05:07 Oxycodone Hcl Immed Release 5 Mg Tablet PO 5 mg Q4H PRN Administration Pain, Moderate(Pain Scale 4-6) Oxycodone HCl 10 mg 12/01/22 09:00 12/01/22 11:48 Oxycodone Hcl Er 10 Mg Tab.Er.12h PO 10 mg BID ANGLE Administration Sodium Chloride 3 ml 12/01/22 08:00 12/01/22 15:32 0.9 % Sodium Chloride Flush 3 Ml Syringe IVFLUSH Not Given QSHIFT [facility] Discontinued Medications Generic Name Dose Route Start Last Admin Trade Name Freq PRN Reason Stop Dose Admin Acetaminophen 650 mg 12/01/22 01:10 12/01/22 01:32 Acetaminophen 325 Mg Tablet PO 12/01/22 01:11 650 mg ONCE ONE Administration Hydromorphone HCl 1 mg 11/30/22 22:48 11/30/22 22:53 Hydromorphone Hcl 1 Mg/Ml Syringe IVPUSH 11/30/22 22:49 1 mg ONCE ONE Administration Protocol Hydromorphone HCl 0.5 mg 12/01/22 01:33 12/01/22 01:43 Hydromorphone Hcl 0.5 Mg/0.5 Ml Syringe IVPUSH 12/01/22 01:34 0.5 mg ONCE ONE Administration Protocol Hydromorphone HCl 0.25 mg 12/01/22 07:58 12/01/22 09:20 Hydromorphone Hcl 0.5 Mg/0.5 Ml Syringe IVPUSH 0.25 mg Q5M PRN Administration Pain, Severe (Pain Scale 7-10) Protocol Sodium Chloride 1,000 mls @ 999 mls/hr 11/30/22 20:30 11/30/22 22:55 Ns IV 11/30/22 21:30 Infused .Q1H1M [facility] Infusion Vancomycin HCl 2,000 mg in 500 mls @ 250 mls/hr 12/01/22 00:31 12/01/22 04:30 Vancomycin/Ns IV 12/01/22 02:30 Infused ONCE ONE Infusion Sodium Chloride 1,000 mls @ 999 mls/hr 12/01/22 01:38 12/01/22 12:50 Ns IV 12/01/22 02:38 Infused .Q1H1M [facility] Infusion Sodium Chloride 500 mls @ 500 mls/hr 12/01/22 01:45 12/01/22 12:50 Ns IV 12/01/22 02:44 Infused .Q1H [facility] Infusion Lactated Ringer's 1,000 mls @ 100 mls/hr 12/01/22 02:30 12/01/22 15:46 Lr IVCONT Infused .Q10H [facility] Infusion Cefazolin Sodium/Dextrose 2 gm in 50 mls @ 100 mls/hr 12/01/22 14:00 12/01/22 14:21 Ancef IV 12/01/22 14:29 Infused POSTOP ONE Infusion Cefazolin Sodium/Dextrose 2 gm in 50 mls @ 100 mls/hr 12/01/22 02:23 12/01/22 11:36 Ancef IV 12/01/22 02:52 Not Given PREOP ONE Acetaminophen 1,000 mg in 100 mls @ 400 mls/hr 12/01/22 07:29 12/01/22 11:39 Ofirmev IV 12/01/22 07:43 Not Given ONCE ONE Lidocaine HCl 2 ml 11/30/22 23:12 12/01/22 01:17 Lidocaine Hcl 2% 2 Ml Vial INFILTRATI 11/30/22 23:13 2 ml ONCE ONE Administration Lidocaine HCl 2 ml 11/30/22 23:12 12/01/22 01:17 Lidocaine Hcl 2% 2 Ml Vial INFILTRATI 11/30/22 23:13 2 ml ONCE ONE Administration Lidocaine HCl 2 ml 11/30/22 23:12 12/01/22 01:17 Lidocaine Hcl 2% 2 Ml Vial INFILTRATI 11/30/22 23:13 2 ml ONCE ONE Administration Lidocaine HCl 2 ml 11/30/22 23:12 12/01/22 01:17 Lidocaine Hcl 2% 2 Ml Vial INFILTRATI 11/30/22 23:13 2 ml ONCE ONE Administration Lidocaine HCl 2 ml 11/30/22 23:12 12/01/22 01:17 Lidocaine Hcl 2% 2 Ml Vial INFILTRATI 11/30/22 23:13 2 ml ONCE ONE Administration Morphine Sulfate 4 mg 11/30/22 20:30 11/30/22 21:30 Morphine Sulfate 4 Mg/Ml Cartridge IVPUSH 11/30/22 20:31 4 mg ONCE ONE Administration Protocol Morphine Sulfate 4 mg 11/30/22 23:35 12/01/22 00:15 Morphine Sulfate 4 Mg/Ml Cartridge IVPUSH 11/30/22 23:36 4 mg ONCE ONE Administration Protocol Oxycodone HCl 5 mg 12/01/22 07:58 12/01/22 09:53 Oxycodone Hcl Immed Release 5 Mg Tablet PO 5 mg ONCE PRN Administration Pain, Severe (Pain Scale 7-10) Medical Decision Making Medical Decision Making MDM Narrative: 67-year-old male status post right knee arthroscopically for meniscal tear repair presents to ED for right knee swelling, warmth, mild redness, and stiffness. Patient also has superficial phlebitis being treated by Eliquis which was diagnosed this past Tuesday by ultrasound. patient has x-ray reading and labs and ultrasound ordered from triage. 21:18: Right knee x-ray positive for large joint effusion probably heme arthrosis and ultrasound positive for superficial phlebitis states also possible hemarthrosis. Patient has mild white blood cell count elevation in ESR CRP elevated. Spoke with orthopedic PA on-call Nelda recommend contacting patient's surgeon in [place] before doing any arthrocentesis. Lactic acid negative 23:00pm Spoke covering on-call Dr. Dr. Thornton from [facility] who works with Dr. Schilling. he was informed of patient's history, physical exam, and imaging results he recommended patient have arthro centesis done in the ER. He states if patient has an infectious joint patient should be treated at [facility]. he states if patient does have hemarthrosis only then patient could be discharged with follow-up at the clinic. 23:40pm: Patient signed consent for right knee arthrocentesis procedure. Area cleaned with Betadine iodine. 10 mL of lidocaine 2% was used for anesthesia and injection for pain relief. Lateral and medial insertion of 18 gauge needle was done to extract joint fluid. 70 mL of joint fluid was extracted mixed with pus and blood. 00:15am. Vancomycin ordered 1:07am: Patient febrile. patient had already received fluids and antibiotics 2:34am. patient admitted to [facility]. Differential Diagnosis Differential Diagnoses: The differential diagnosis associated with the presentation includes ( septic joint, hemarthrosis, osteomyelitis, wound cellulitis, DVT,) Admission/Observation Consideration of admission/observation: Escalation of care including admission/observation considered Consult Healthcare Provider Management of the patient was discussed with: Roll Tube Setter (Nelda [facility] PA. Dr. Thornton Orthopedic Surgeon [facility] ) Lab Data MDM Lab Attestation statement: I reviewed the patient's lab results. 11/30/22 21:23 12/01/22 11:33 Labs: Lab Results 11/30/22 11/30/22 12/01/22 Range/Units 21:23 21:24 00:39 WBC 11.4 H (4.8-10.8) X10*3/uL RBC 4.85 (4.60-5.80) X10*6/uL Hgb 14.6 (14.0-18.0) g/dl Hct 42.6 (42.0-52.0) % MCV 87.8 (80.0-98.0) fL MCH 30.1 (27.0-33.0) pg MCHC 34.3 (31.0-36.0) g/dl RDW 12.7 (11.0-16.0) % Plt Count 204 D (160-400) X10*3/uL MPV 9.8 (9.4-12.4) fL Immature Gran % (Auto) 0.5 H (0.0-0.4) % Neut % (Auto) 85.0 H (45-73) % Lymph % (Auto) 2.6 L (20-40) % Schley % (Auto) 11.5 H (2-11) % Eos % (Auto) 0.1 (0-4) % Baso % (Auto) 0.3 (0-2) % Lymph # (Auto) 0.3 L (1.2-4.9) X10*3/uL Schley # (Auto) 1.3 H (0.1-1.2) X10*3/uL Eos # (Auto) 0.0 (0.0-0.4) X10*3/uL Baso # (Auto) 0.0 (0.0-0.2) X10*3/uL Abs Immat Gran (auto) 0.06 H (0.00-0.03) X10*3/uL Absolute Neuts (auto) 9.7 H (2.0-8.3) x10*3/uL Absolute Nucleated RBC 0.000 (0.0-0.012) X10*3/uL Nucleated RBC % (auto) 0.0 (0.0-0.2) /100WBC ESR 59 H (0-15) MM/HR PT 23.3 H (11.1-13.3) SEC INR 1.9 H (0.9-1.1) APTT 34.6 (26.0-36.4) SEC Sodium 135 (135-145) mmol/L Potassium 4.1 (3.3-5.1) mmol/L Chloride 102 (96-108) mmol/L Carbon Dioxide 24 (22-29) mmol/L Anion Gap 13 (12-20) BUN 13 (9-16) mg/dL Creatinine 0.77 (0.5-1.4) mg/dL Estim Creat Clear Calc 100.7 Estimated GFR > 60 Random Glucose 116 H (60-115) mg/dL Lactic Acid 1.2 (0.5-2.0) mmol/L Calcium 10.0 (8.4-10.2) mg/dL C-Reactive Protein 29.08 H (< or = 0.50) mg/dL Synovial Source RIght knee Synovial WBC 121.806 X10*3/uL Synovial RBC 0.218 X10*6/uL Synovial Neutrophils 99 % Synovial Monocytes 1 % Synovial Glucose < 2 MG/DL Synovial Total Protein 4.6 GM/DL COVID-19 (SHAMIR) Negative (Negative) COVID-19 Clin Com See Note Independent Interpretation I performed an independent interpretation of an: Plain X-Ray and Ultrasound Radiology Impression Discussion of test interpretation with radiology: I have reviewed the radiologist's reading. Independent Historian Clinical information obtained from an independent historian. History obtained from or confirmed by: Spouse External Record Review External record reviewed: Other (Prior ED visist) Discharge Plan Discharge Clinical Impression: Septic joint of right knee joint Patient Disposition: Admitted As Inpatient Interventions: Admission Worksheet (ED) Last Done: 12/01/22 07:03 Discharge Date/Time: 12/01/22 07:05
[2022-11-30] MEDS: 0.9 % Sodium Chloride 1,000 ML 999 ML IV (21:24)
[2022-11-30] MEDS: Morphine Sulfate 4 MG/ML CARTRIDGE IVPUSH (21:30)
[2022-11-30 21:32] LABS: MANUAL DIFF FLAG NO
[2022-11-30 21:35] LABS: Basophils Percent Auto 0.3 % (0-2); Eosinophils Percent Auto 0.1 % (0-4); Hematocrit 42.6 % (42.0-52.0); Hemoglobin 14.6 g/dl (14.0-18.0); Imm Gran Abs Auto 0.06 X10*3/uL (0.00-0.03); Imm Gran Pct Auto 0.5 % (0.0-0.4); Lymphocytes Absolute Auto 0.3 X10*3/uL (1.2-4.9); Lymphocytes Percent Auto 2.6 % (20-40); Mean Corpuscular HGB Conc 34.3 g/dl (31.0-36.0); Mean Corpuscular Hemoglobin 30.1 pg (27.0-33.0); Mean Corpuscular Volume 87.8 fL (80.0-98.0); Mean Platelet Volume 9.8 fL (9.4-12.4); Monocytes Absolute Auto 1.3 X10*3/uL (0.1-1.2); Monocytes Percent Auto 11.5 % (2-11); Neutrophils Absolute Auto 9.7 x10*3/uL (2.0-8.3); Platelet Count 204 X10*3/uL (160-400); Red Blood Count 4.85 X10*6/uL (4.60-5.80); Red Cell Distribution Width 12.7 % (11.0-16.0); White Blood Count 11.4 X10*3/uL (4.8-10.8)
--- NOTE | 2022-11-30 21:37 | MHC.EDTECH ---
Plan is ongoing pt expresses no other needs at this time call light within reach
--- NOTE | 2022-11-30 21:40 | MHC.EDTECH ---
Pt resting in bed respiration even and unlabored no distress noted plan of care ongoing
[2022-11-30 21:43] LABS: INTERNATIONAL NORM RATIO 1.9 (0.9-1.1); Lactic Acid 1.2 mmol/L (0.5-2.0); Prothrombin Time 23.3 SEC (11.1-13.3)
[2022-11-30 21:46] LABS: Anion Gap 13 (12-20); Blood Urea Nitrogen 13 mg/dL (9-16); C Reactive Protein 29.08 mg/dL (< or = 0.50); Carbon Dioxide 24 mmol/L (22-29); Chloride 102 mmol/L (96-108); Creatinine Clr Calc Pharmacy 100.7; Estimated Glomerular Filt Rate > 60; Glucose Random 116 mg/dL (60-115); Partial Thromboplastin Time 34.6 SEC (26.0-36.4); Potassium 4.1 mmol/L (3.3-5.1); Sodium 135 mmol/L (135-145)
[2022-11-30 21:47] LABS: COVID-19 Test Negative (Negative); IDNOW Serial# 08D9AD1C
--- NOTE | 2022-11-30 21:56 | PC.NURSE ---
Pt alert and oriented. 20g IV placed in right AC- Line is intact and patent. Labs drawn. Medications adminsitered as per MAY. IV fluids currently running. Call appiah within reach. Plan of care ongoing
[2022-11-30 22:13] LABS: Erythrocyte Sedimentation Rate 59 MM/HR (0-15)
[2022-11-30] MEDS: HYDROmorphone HCl 1 MG/ML SYRINGE IVPUSH (22:53)
--- NOTE | 2022-11-30 23:02 | PC.NURSE ---
PT notes he ambulated to the bathroom and since has had an increase in pain in his right leg. This RN spoke with BENJAMIN Carrasco regarding change of doseage or medications as requested by pt. This Rn administered medications as per may.
[2022-12-01] VITALS (21 sets, daily range): BP systolic 129–154; BP diastolic 69–92; PULSE 92–110; RESP 14–18; TEMP 36.2–38.4; O2SAT 89–102; BMI 25.5; BMI 28.7
[2022-12-01] MEDS: Morphine Sulfate 4 MG/ML CARTRIDGE IVPUSH (00:15)
[2022-12-01] MEDS: vancomycin/NS 2,000 MG/500 ML PLAST..BAG 250 MG IV (01:16)
--- NOTE | 2022-12-01 01:22 | PC.NURSE ---
PT white count elevated and now has a temp of 100.6 and pulse is 105. Informed provider, BENJAMIN Carrasco. Sepsis not called. new ordered placed. Antibiotics and fluids infusing. Call appiah within reach. Plan of care ongoing
[2022-12-01 01:30] LABS: MN% 3.6 %; PMN% 96.4 %
[2022-12-01 01:31] LABS: RBC Synovial Fluid 0.218 X10*6/uL
[2022-12-01 01:32] LABS: BF Shift QC OK YES
[2022-12-01] MEDS: Acetaminophen 325 MG TABLET 650 MG PO ×3 (01:32→21:19)
[2022-12-01 01:33] LABS: Man Diluent Bkgrd OK YES
[2022-12-01] MEDS: 0.9 % Sodium Chloride 1,000 ML 999 ML IV (01:39)
[2022-12-01 01:43] LABS: Monocytes Synovial Fluid 1 %; Neutrophils Synovial Fluid 99 %
[2022-12-01] MEDS: HYDROmorphone HCl 0.5 MG/0.5 ML SYRINGE IVPUSH (01:43)
[2022-12-01] MEDS: 0.9 % Sodium Chloride 500 ML IV (01:50)
--- NOTE | 2022-12-01 02:27 | PC.NURSE ---
Second IV line placed. Line is intact and patent. Fluids infusing.
[2022-12-01] MEDS: Lactated Ringers 1,000 ML 100 ML IVCONT ×2 (03:41→11:48)
[2022-12-01 04:59] LABS: Total Protein Synovial Fluid 4.6 GM/DL
[2022-12-01] MEDS: oxyCODONE HCl Immed Release 5 MG TABLET PO ×3 (05:07→21:19)
[2022-12-01] MEDS: HYDROmorphone HCl 0.5 MG/0.5 ML SYRINGE 0.25 MG IVPUSH ×5 (05:07→09:20)
[2022-12-01 05:35] LABS: Glucose Synovial Fluid < 2 MG/DL
--- NOTE | 2022-12-01 06:26 | PC.NURSE ---
Nurse to Nurse given to Leann at short stay
--- NOTE | 2022-12-01 07:16 | P.CONAN_ITS ---
[facility] Active Problems Active Problems: All Active Problems Septic joint of right knee joint (Acute) Past Medical History Medical History Arthritis DVT of proximal leg (deep vein thrombosis) Surgical History Surgical History H/O right knee surgery History of Problems with Anesthesia: No Social History Social History Alcohol intake: former Patient Tobacco Use Status: Never used Tobacco Smoked in Last 30 Days: No Use of substances other than those prescribed or required for medical reasons: No Are you DNR?: No Advance Directives: No Advance Directives Information Provided: No Meds Allergies Allergy/AdvReac Type Severity Reaction Status Date / Time No Known Allergies Allergy Verified 12/30/21 16:00 [No Known Allergies*] Active Medications: Current Medications Acetaminophen (Acetaminophen 325 Mg Tablet) 650 mg PO Q6H PRN PRN Reason: Pain, Mild (Pain Scale 1-3) Celecoxib (Celecoxib 200 Mg Capsule) 200 mg PO BID [place] Docusate Sodium (Docusate Sodium 100 Mg Capsule) 100 mg PO BID [place] Hydromorphone HCl (Hydromorphone Hcl 0.5 Mg/0.5 Ml Syringe) 0.25 mg IVPUSH Q4H PRN; Protocol PRN Reason: Pain, Severe (Pain Scale 7-10) Last Admin: 12/01/22 05:07 Dose: 0.25 mg Lactated Ringer's (Lr) 1,000 mls @ 100 mls/hr IVCONT .Q10H [place] Last Admin: 12/01/22 03:41 Dose: 100 mls/hr Cefazolin Sodium/Dextrose (Ancef) 2 gm in 50 mls @ 100 mls/hr IV POSTOP ONE Stop: 12/01/22 02:52 Ondansetron HCl (Ondansetron Hcl 4 Mg/2 Ml Vial) 4 mg IVPUSH Q8H PRN PRN Reason: Nausea and Vomiting Oxycodone HCl (Oxycodone Hcl Immed Release 5 Mg Tablet) 5 mg PO Q4H PRN PRN Reason: Pain, Moderate(Pain Scale 4-6) Last Admin: 12/01/22 05:07 Dose: 5 mg Oxycodone HCl (Oxycodone Hcl Er 10 Mg Tab.Er.12h) 10 mg PO BID [facility] Sodium Chloride (0.9 % Sodium Chloride Flush 3 Ml Syringe) 3 ml IVFLUSH QSHIFT [facility] Home Medications Medication Instructions Recorded Confirmed Last Taken Type acetaminophen 500 mg tablet 1,000 mg PO Q8H 12/01/22 Unknown History apixaban 5 mg (74 tabs) tablets in 10 mg PO DIRECTED 12/01/22 12/01/22 11/30/22 History a dose pack (Eliquis DVT-PE Treat 10 mg 30D Start) clobetasol 0.05 % topical ointment 1 appl topical DAILY PRN Rash 12/01/22 Unknown History docusate sodium 100 mg capsule 100 mg PO BID 12/01/22 Unknown History etanercept 50 mg/mL (1 mL) 50 mg subcut PRN arthritis flare 12/01/22 11/01/22 History subcutaneous pen injector (Enbrel SureClick) naproxen 500 mg tablet 500 mg PO BID 12/01/22 Unknown History ondansetron HCl 4 mg tablet 4 mg PO Q8H PRN nausea 12/01/22 Unknown History oxycodone 5 mg tablet 5 - 10 mg PO Q4H PRN pain 12/01/22 Unknown History Exam Exam Date and Time: December 01, 2022 0716 Height,Weight and Vital Signs: Height 6 ft Weight 85.275 kg Last Vital Signs Temp 101.2 F H 12/01/22 06:48 Pulse 110 H 12/01/22 06:48 Resp 18 12/01/22 06:48 BP 147/86 H 12/01/22 06:48 Pulse Ox 98 12/01/22 06:48 O2 Del Method Room Air 12/01/22 06:48 Pertinent Lab Results Pertinent Lab Results: Laboratory Tests 11/30/22 11/30/22 12/01/22 21:23 21:24 00:39 WBC 11.4 H RBC 4.85 Hgb 14.6 Hct 42.6 MCV 87.8 MCH 30.1 MCHC 34.3 RDW 12.7 Plt Count 204 D MPV 9.8 Immature Gran % (Auto) 0.5 H Neut % (Auto) 85.0 H Lymph % (Auto) 2.6 L [place] % (Auto) 11.5 H Eos % (Auto) 0.1 Baso % (Auto) 0.3 Lymph # (Auto) 0.3 L [place] # (Auto) 1.3 H Eos # (Auto) 0.0 Baso # (Auto) 0.0 Abs Immat Gran (auto) 0.06 H Absolute Neuts (auto) 9.7 H Absolute Nucleated RBC 0.000 Nucleated RBC % (auto) 0.0 ESR 59 H PT 23.3 H INR 1.9 H APTT 34.6 Sodium 135 Potassium 4.1 Chloride 102 Carbon Dioxide 24 Anion Gap 13 BUN 13 Creatinine 0.77 Estim Creat Clear Calc 100.7 Estimated GFR > 60 Random Glucose 116 H Lactic Acid 1.2 Calcium 10.0 C-Reactive Protein 29.08 H Synovial Source RIght knee Synovial WBC 121.806 Synovial RBC 0.218 Synovial Neutrophils 99 Synovial Monocytes 1 Synovial Glucose < 2 Synovial Total Protein 4.6 COVID-19 (SHAMIR) Negative COVID-19 Clin Com See Note Airway Partial: Lower Assessment and Plan Final Anesthetic Review History of Problems with Anesthesia: No NPO: Yes ASA Class: II and Emergency Patient Risk: Low Procedure Risk: Low Assessment/Block/Sedation in SS: Assess/Block/Sedation-SS Anesthetic Plan Anesthetic Plan: GA Disposition: Standard PACU
--- NOTE | 2022-12-01 08:10 | PM.HPOR ---
History of Present Illness History of Present Illness Date of Service: 12/01/22 <Nelda Gamez PA-C - Last Filed: 12/01/22 08:14> 12/13/22 <Cristi Oropeza MD - Last Filed: 12/13/22 14:15> Chief complaint: right knee septic joint <Nelda Gamez PA-C - Last Filed: 12/01/22 08:14> Narrative: Caleb Zheng is a 67 year old male who presented to the ED yesterday evening for right knee pain. He is s/p right knee arthroscopy from a surgeon in [place] and this was performed last week. The patient reports that since of last week he has noticed an increase in redness and pain. He reports that he is unable to weightbear and unable to perform any ROM activities. The ED consulted the applications analyst provider who performed the surgery and they recommended that the knee be aspirated and analysed. The was performed in the ED and results of this were concerning for septic joint. The patient was admitted to the orthopedic service for further evaluation and treatment. <Nelda Gamez PA-C - Last Filed: 12/01/22 08:14> Review of Systems Review of Systems: Yes all other systems are reviewed and are negative <Nelda Gamez PA-C - Last Filed: 12/01/22 08:14> [facility] Past Medical History Medical History: Medical History (Updated 12/07/22 @ 12:33 by Kamryn Holt) Pulmonary embolism MRSA bacteremia Arthritis DVT of proximal leg (deep vein thrombosis) <Nelda Gamez PA-C - Last Filed: 12/01/22 08:14> Surgical History Surgical History: Surgical History (Updated 12/07/22 @ 12:20 by Kamryn Holt) History of appendectomy H/O knee surgery H/O right knee surgery <Nelda Gamez PA-C - Last Filed: 12/01/22 08:14> Social History Social History: Social History Household Members: Spouse Housing: House Do you presently have visiting nurse or other home services: No Alcohol intake: former Patient Tobacco Use Status: Never used Tobacco Second Hand Smoke Exposure: No Substance Use Type: Marijuana service: No <Nelda Gamez PA-C - Last Filed: 12/01/22 08:14> Meds Allergies/Adverse reactions: Allergies Allergy/AdvReac Type Severity Reaction Status Date / Time No Known Allergies Allergy Verified 12/07/22 12:21 [No Known Allergies*] <Nelda Gamez PA-C - Last Filed: 12/01/22 08:14> Active Medications: Current Medications Acetaminophen (Acetaminophen 325 Mg Tablet) 650 mg PO Q6H PRN PRN Reason: Pain, Mild (Pain Scale 1-3) Albuterol Sulfate (Albuterol Sulfate (0.083%) 2.5 Mg/3 Ml Vial.Neb) 2.5 mg INHALE ONCE PRN PRN Reason: Wheezing Celecoxib (Celecoxib 200 Mg Capsule) 200 mg PO BID [place] Docusate Sodium (Docusate Sodium 100 Mg Capsule) 100 mg PO BID [place] Fentanyl (Fentanyl Citrate/Pf 100 Mcg/2 Ml Vial) 50 mcg IVPUSH Q5M PRN; Protocol PRN Reason: Pain, Severe (Pain Scale 7-10) Fentanyl (Fentanyl Citrate/Pf 100 Mcg/2 Ml Vial) 25 mcg IVPUSH Q5M PRN; Protocol PRN Reason: Pain, Moderate(Pain Scale 4-6) Hydromorphone HCl (Hydromorphone Hcl 0.5 Mg/0.5 Ml Syringe) 0.25 mg IVPUSH Q4H PRN; Protocol PRN Reason: Pain, Severe (Pain Scale 7-10) Last Admin: 12/01/22 05:07 Dose: 0.25 mg Hydromorphone HCl (Hydromorphone Hcl 0.5 Mg/0.5 Ml Syringe) 0.25 mg IVPUSH Q5M PRN; Protocol PRN Reason: Pain, Severe (Pain Scale 7-10) Lactated Ringer's (Lr) 1,000 mls @ 100 mls/hr IVCONT .Q10H [place] Last Admin: 12/01/22 03:41 Dose: 100 mls/hr Cefazolin Sodium/Dextrose (Ancef) 2 gm in 50 mls @ 100 mls/hr IV POSTOP ONE Stop: 12/01/22 02:52 Ondansetron HCl (Ondansetron Hcl 4 Mg/2 Ml Vial) 4 mg IVPUSH Q8H PRN PRN Reason: Nausea and Vomiting Ondansetron HCl (Ondansetron Hcl 4 Mg/2 Ml Vial) 4 mg IVPUSH ONCE PRN PRN Reason: Nausea and Vomiting Oxycodone HCl (Oxycodone Hcl Immed Release 5 Mg Tablet) 5 mg PO Q4H PRN PRN Reason: Pain, Moderate(Pain Scale 4-6) Last Admin: 12/01/22 05:07 Dose: 5 mg Oxycodone HCl (Oxycodone Hcl Er 10 Mg Tab.Er.12h) 10 mg PO BID [place] Oxycodone HCl (Oxycodone Hcl Immed Release 5 Mg Tablet) 5 mg PO ONCE PRN PRN Reason: Pain, Severe (Pain Scale 7-10) Sodium Chloride (0.9 % Sodium Chloride Flush 3 Ml Syringe) 3 ml IVFLUSH QSHIFT [facility] <Nelda Gamez PA-C - Last Filed: 12/01/22 08:14> Home medications: Home Medications Medication Instructions Recorded Confirmed Last Taken Type acetaminophen 500 mg tablet 1,000 mg PO Q8H 12/01/22 12/01/22 11/30/22 History apixaban 5 mg (74 tabs) tablets in 10 mg PO DIRECTED 12/01/22 12/01/22 11/30/22 History a dose pack (Eliquis DVT-PE Treat 10 mg 30D Start) clobetasol 0.05 % topical ointment 1 appl topical DAILY PRN Rash 12/01/22 12/01/22 11/30/22 History etanercept 50 mg/mL (1 mL) 50 mg subcut Q28D PRN arthritis 12/01/22 12/01/22 11/30/22 History subcutaneous pen injector (Enbrel flare SureClick) ondansetron HCl 4 mg tablet 4 mg PO Q8H PRN nausea 12/01/22 12/01/22 11/30/22 History <Nelda Gamez PA-C - Last Filed: 12/01/22 08:14> Physical Exam Vital Signs: Vital Signs: Last Vital Signs Temp 101.2 F H 12/01/22 06:48 Pulse 110 H 12/01/22 06:48 Resp 18 12/01/22 06:48 BP 147/86 H 12/01/22 06:48 Pulse Ox 98 12/01/22 06:48 O2 Del Method Room Air 12/01/22 06:48 BMI result Body Mass Index 25.5 <Nelda Christianlburt ZACH - Last Filed: 12/01/22 08:14> Const: General: cooperative, healthy appearing and no acute distress <Nelda Christianfranco ZACH - Last Filed: 12/01/22 08:14> Resp: Effort & Inspection: normal respiratory effort and able to speak in complete sentences <Nelda Christianfranco ZACH - Last Filed: 12/01/22 08:14> Cardio: Rate: regular rate <Nelda Christianlburrocael ZACH - Last Filed: 12/01/22 08:14> Peripheral pulses: Peripheral pulses 2+ throughout <Nelda Christianfranco ZACH - Last Filed: 12/01/22 08:14> GI: Palpation (GI): Soft to palpation <Nelda Christianlburt ZACH - Last Filed: 12/01/22 08:14> Skin: Lesions: no lesions <Nelda Christianfranco ZACH - Last Filed: 12/01/22 08:14> Rashes: no rashes <Nelda Christianfranco ZACH - Last Filed: 12/01/22 08:14> Extrem: Other: Right knee incision sites on the medial and lateral joint lines are surrounded by erythema. Unable to perform ROM due to pain. <Nelda Bonilla Vera ZACH - Last Filed: 12/01/22 08:14> Results Labs Result Diagrams: 12/06/22 05:33 12/08/22 06:15 <Nelda Bonilla BENJAMIN GamezKathrine Hutchins Last Filed: 12/01/22 08:14> Labs: Abnormal lab results 11/30/22 Range/Units 21:23 WBC 11.4 H (4.8-10.8) X10*3/uL Immature Gran % (Auto) 0.5 H (0.0-0.4) % Neut % (Auto) 85.0 H (45-73) % Lymph % (Auto) 2.6 L (20-40) % [place] % (Auto) 11.5 H (2-11) % Lymph # (Auto) 0.3 L (1.2-4.9) X10*3/uL [place] # (Auto) 1.3 H (0.1-1.2) X10*3/uL Abs Immat Gran (auto) 0.06 H (0.00-0.03) X10*3/uL Absolute Neuts (auto) 9.7 H (2.0-8.3) x10*3/uL ESR 59 H (0-15) MM/HR PT 23.3 H (11.1-13.3) SEC INR 1.9 H (0.9-1.1) Random Glucose 116 H (60-115) mg/dL C-Reactive Protein 29.08 H (< or = 0.50) mg/dL H & H 11/30/22 Range/Units 21:23 Hgb 14.6 (14.0-18.0) g/dl Hct 42.6 (42.0-52.0) % Coagulation 11/30/22 Range/Units 21:23 INR 1.9 H (0.9-1.1) All other labs normal. <Nelda Gamez PA-C - Last Filed: 12/01/22 08:14> Assessment and Plan (1) Septic joint of right knee joint: Status: Acute <Nelda Gamez PA-C - Last Filed: 12/01/22 08:14> I discussed the case with Dr. Oropeza and explained the extent of the injury to the patient and options available which include surgical intervention. I explained the procedure in detail along with the length of recovery and rehab course. I explained the risk, benefits and alternatives. Risk including, but not limited to infection, blood clots, bleeding, non union or malunion and nerve/tissue damage to surrounding areas. I answered all their questions and with their understanding they have consented to move forward with arthroscopic irrigation and debridement/ lavage. The patient will remain NPO. <Nelda Gamez PA-C - Last Filed: 12/01/22 08:14> Time Spent With Patient Time: Total time managing care of this patient today ____ minutes. <Nelda Gamez PA-C - Last Filed: 12/01/22 08:14> Quality Stroke Does the patient have a stroke diagnosis?: No <Nelda Gamez PA-C - Last Filed: 12/01/22 08:14> VTE Prior VTE?: No <Nelda Gamez PA-C - Last Filed: 12/01/22 08:14> VTE Risk Level:: Medical - moderate - high <Nelda Gamez PA-C - Last Filed: 12/01/22 08:14> VTE Device Contraindication: N/A - Device Ordered <Nelda Gamez PA-C - Last Filed: 12/01/22 08:14> VTE Drug Contraindication: N/A - Med Ordered <Nelda Gamez PA-C - Last Filed: 12/01/22 08:14> Procedures Date of Service Date of Service: 12/01/22 <Nelda Gamez PA-C - Last Filed: 12/01/22 08:14> 12/13/22 <Cristi Oropeza MD - Last Filed: 12/13/22 14:15>
--- NOTE | 2022-12-01 08:17 | PM.OP ---
Brief Operative Note Date of Service: 12/01/22 Pre-op diagnosis: Septic right knee Procedure: Arthroscopic debridement and lavage right knee Implants: none Surgeon: Cristi Oropeza MD Anesthesia: GETA Was an Defensive Line Coach used for this Procedure?: No Estimated blood loss (mL): 50 Tourniquet time (min): 15 IV fluids (mL): 600 Pathology: none sent Condition: stable Disposition: PACU
--- NOTE | 2022-12-01 08:24 | MHC.SHP ---
Pre-Procedural Eval Section A Date of Service: 12/01/22 The patient is an INPATIENT: Yes Changes since office visit: No Cold of Flu in the past 2 weeks, No New Medical Problems, No Changes in Medication and No Patient answered all questions The History & Physical has been completed within 30 days and I have reviewed it.: Yes Section B Chief Complaint: right knee septic joint Allergies: Allergies Allergy/AdvReac Type Severity Reaction Status Date / Time No Known Allergies Allergy Verified 12/30/21 16:00 [No Known Allergies*] Plan I have reviewed the history and physical and performed a pertinent physical examination on my patient. No changes have occurred unless specified. Time Spent With Patient Time: Total time managing care of this patient today ____ minutes.
[2022-12-01] MEDS: Celecoxib 200 MG CAPSULE PO ×2 (11:48→19:29)
[2022-12-01] MEDS: oxyCODONE HCl ER 10 MG TAB.ER.12H PO ×2 (11:48→19:29)
[2022-12-01] MEDS: Docusate Sodium 100 MG CAPSULE PO ×2 (11:48→19:29)
[2022-12-01 11:51] LABS: Creatinine Clr Calc Pharmacy 95.8; Estimated Glomerular Filt Rate > 60
--- NOTE | 2022-12-01 12:00 | MHC.CM.PN ---
CM ATTEMPTED TO SEE PT PT OFF UNIT
--- NOTE | 2022-12-01 12:15 | PC.NURSE ---
Post anesthesia high fall risk explained. pt refuses high fall protocols has shut off bed alarm
[2022-12-01] MEDS: ceFAZolin Sodium/Dextrose,Iso 2 GM/50 ML PIGGYBACK IV (13:23)
--- NOTE | 2022-12-01 13:37 | PHA.MEDREC ---
Pharmacy Consult ? Medication Reconciliation Pharmacy has completed the medication reconciliation.SPOKE TO PATIENT, PATIENT KNOWS ABOUT HIS MEDICATONS. HE STARTED TAKING ELIQUIS LAST Tuesday11/27/22 10MG BID, TITRATE DOWN TO 5MG BID ON Tuesday12/04/22
[2022-12-01] MEDS: Apixaban 5 MG TABLET 10 MG PO ×2 (13:58→19:29)
[2022-12-01] MEDS: vancomycin HCL 1,000 MG in 0.9 % Sodium Chloride 250 ML 270 MG IV (14:07)
--- NOTE | 2022-12-01 14:40 | P.CONHOSP_ITS ---
History of Present Illness Data of Consult Primary Care Provider: Gonzalo Chaidez MD [facility] Medical History Arthritis DVT of proximal leg (deep vein thrombosis) Surgical History H/O right knee surgery Social History Household Members: Spouse Housing: House Do you presently have visiting nurse or other home services: No Alcohol intake: former Patient Tobacco Use Status: Never used Tobacco Smoked in Last 30 Days: No Patient Interested in Nicotine Replacement: No Patient Given Instructions on How to Stop Smoking: No Second Hand Smoke Exposure: No Use of substances other than those prescribed or required for medical reasons: No Substance Use Type: Marijuana Currently Displaying Signs/Symptoms of Drug Intoxication Withdrawal: No Any prior treatment program specific to substance use: No Have you been hit, kicked, punched, or otherwise hurt by someone within the past year? If so, by whom?: No Do you feel safe in your current relationship?: Yes Is there a partner from a previous relationship who is making you feel unsafe now?: No Are you made to feel afraid or neglected: No Are you DNR?: No Advance Directives: No Advance Directives Information Provided: No Advance Directives on File: No Do you have thoughts of harming others: None Do you have a plan to hurt others: No Plan Recently lost weight without trying: No Nutrition Risks: No Nutritional Risk Poor oral hygiene: No Meds Allergies Allergy/AdvReac Type Severity Reaction Status Date / Time No Known Allergies Allergy Verified 12/30/21 16:00 [No Known Allergies*] Active Medications: Current Medications Acetaminophen (Acetaminophen 325 Mg Tablet) 650 mg PO Q6H PRN PRN Reason: Pain, Mild (Pain Scale 1-3) Last Admin: 12/01/22 09:52 Dose: 650 mg Albuterol Sulfate (Albuterol Sulfate (0.083%) 2.5 Mg/3 Ml Vial.Neb) 2.5 mg INHALE ONCE PRN PRN Reason: Wheezing Apixaban (Apixaban 5 Mg Tablet) 10 mg PO BID [place] Stop: 12/03/22 21:01 Last Admin: 12/01/22 13:58 Dose: 10 mg Apixaban (Apixaban 5 Mg Tablet) 5 mg PO BID [facility] Celecoxib (Celecoxib 200 Mg Capsule) 200 mg PO BID [facility] Last Admin: 12/01/22 11:48 Dose: 200 mg Docusate Sodium (Docusate Sodium 100 Mg Capsule) 100 mg PO BID [facility] Last Admin: 12/01/22 11:48 Dose: 100 mg Hydromorphone HCl (Hydromorphone Hcl 0.5 Mg/0.5 Ml Syringe) 0.25 mg IVPUSH Q4H PRN; Protocol PRN Reason: Pain, Severe (Pain Scale 7-10) Last Admin: 12/01/22 05:07 Dose: 0.25 mg Lactated Ringer's (Lr) 1,000 mls @ 100 mls/hr IVCONT .Q10H [facility] Last Admin: 12/01/22 11:48 Dose: 100 mls/hr Vancomycin HCl 1,000 mg/ (Sodium Chloride) 270 mls @ 270 mls/hr IV Q12H [facility] Last Admin: 12/01/22 14:07 Dose: 270 mls/hr Ondansetron HCl (Ondansetron Hcl 4 Mg/2 Ml Vial) 4 mg IVPUSH Q8H PRN PRN Reason: Nausea and Vomiting Oxycodone HCl (Oxycodone Hcl Immed Release 5 Mg Tablet) 5 mg PO Q4H PRN PRN Reason: Pain, Moderate(Pain Scale 4-6) Last Admin: 12/01/22 05:07 Dose: 5 mg Oxycodone HCl (Oxycodone Hcl Er 10 Mg Tab.Er.12h) 10 mg PO BID [facility] Last Admin: 12/01/22 11:48 Dose: 10 mg Pharmacy Consult (Consult Rx Vancomycin Dosing) 1 each MISCELLANE DAILY PRN PRN Reason: Consult order Sodium Chloride (0.9 % Sodium Chloride Flush 3 Ml Syringe) 3 ml IVFLUSH QSHIFT [facility] Last Admin: 12/01/22 11:36 Dose: Not Given Home Medications Medication Instructions Recorded Confirmed Last Taken Type acetaminophen 500 mg tablet 1,000 mg PO Q8H 12/01/22 12/01/22 11/30/22 History apixaban 5 mg (74 tabs) tablets in 10 mg PO DIRECTED 12/01/22 12/01/22 11/30/22 History a dose pack (Eliquis DVT-PE Treat 10 mg 30D Start) clobetasol 0.05 % topical ointment 1 appl topical DAILY PRN Rash 12/01/22 12/01/22 11/30/22 History etanercept 50 mg/mL (1 mL) 50 mg subcut Q28D PRN arthritis 12/01/22 12/01/22 11/30/22 History subcutaneous pen injector (Enbrel flare SureClick) ondansetron HCl 4 mg tablet 4 mg PO Q8H PRN nausea 12/01/22 12/01/22 11/30/22 History oxycodone 5 mg tablet 5 - 10 mg PO Q4H PRN pain 12/01/22 12/01/22 11/30/22 History Physical Exam 2 Vital Signs and Narrative: Vital Signs: Last Vital Signs Temp 97.2 F 12/01/22 12:04 Pulse 99 12/01/22 12:04 Resp 17 12/01/22 12:04 BP 153/79 H 12/01/22 12:04 Pulse Ox 96 12/01/22 12:04 O2 Del Method Room Air 12/01/22 12:04 O2 Flow Rate 2 12/01/22 10:30 BMI result Body Mass Index 28.7 Results Labs 11/30/22 21:23 12/01/22 11:33 Labs: Laboratory Results - last 24 hr 11/30/22 11/30/22 12/01/22 21:23 21:24 00:39 MCV 87.8 MCH 30.1 MCHC 34.3 RDW 12.7 Plt Count 204 D MPV 9.8 Immature Gran % (Auto) 0.5 H Neut % (Auto) 85.0 H Lymph % (Auto) 2.6 L [place] % (Auto) 11.5 H Eos % (Auto) 0.1 Baso % (Auto) 0.3 Lymph # (Auto) 0.3 L [place] # (Auto) 1.3 H Eos # (Auto) 0.0 Baso # (Auto) 0.0 Abs Immat Gran (auto) 0.06 H Absolute Neuts (auto) 9.7 H Absolute Nucleated RBC 0.000 Nucleated RBC % (auto) 0.0 ESR 59 H PT 23.3 H INR 1.9 H APTT 34.6 Anion Gap 13 Estim Creat Clear Calc 100.7 Estimated GFR > 60 Random Glucose 116 H Lactic Acid 1.2 Calcium 10.0 C-Reactive Protein 29.08 H Synovial Source RIght knee Synovial WBC 121.806 Synovial RBC 0.218 Synovial Neutrophils 99 Synovial Monocytes 1 Synovial Glucose < 2 Synovial Total Protein 4.6 COVID-19 (SHAMIR) Negative COVID-19 Clin Com See Note 12/01/22 11:33 MCV MCH MCHC RDW Plt Count MPV Immature Gran % (Auto) Neut % (Auto) Lymph % (Auto) [place] % (Auto) Eos % (Auto) Baso % (Auto) Lymph # (Auto) [place] # (Auto) Eos # (Auto) Baso # (Auto) Abs Immat Gran (auto) Absolute Neuts (auto) Absolute Nucleated RBC Nucleated RBC % (auto) ESR PT INR APTT Anion Gap Estim Creat Clear Calc 95.8 Estimated GFR > 60 Random Glucose Lactic Acid Calcium C-Reactive Protein Synovial Source Synovial WBC Synovial RBC Synovial Neutrophils Synovial Monocytes Synovial Glucose Synovial Total Protein COVID-19 (SHAMIR) COVID-19 Clin Com Imaging Radiologist's Impressions: Impressions Knee X-Ray 11/30/22 20:37 IMPRESSION: Abnormal study. A large suprapatellar hyperdense effusion is present may represent hemarthrosis. No radiographic evidence of any displaced fracture, subluxation or dislocation. Venous Duplex 11/30/22 20:55 IMPRESSION: 1. No DVT demonstrated in the right lower extremity. 2. There is clot again seen within the superficial saphenous vein and varicosities but no extension into the deep venous system. This was noted on the prior 11/27/2022 study as well 3. There is a new complex joint effusion seen in the right knee. Etiology of this is uncertain but this was seen as well on the plain films from earlier tonight. By report patient was recently started on L request. A hemarthrosis cannot be excluded Assessment and Plan Time Spent With Patient Time: Total time managing care of this patient today ____ minutes.
--- NOTE | 2022-12-01 15:36 | MHC.CM.PN ---
pt lives w/ pt receommnded outpt services forpt when dcd will drive him home
--- NOTE | 2022-12-01 16:21 | PM.IMCN ---
History of Present Illness Data of Consult Service Date: 12/01/22 Primary Care Provider: Gonzalo Chaidez MD [facility] Reason for consult: medical managment 67M PMH dvt/pe provoked and recent superficial saphenous vein, psoriatic arthritis, presented with right knee swelling and pain after arthroscopy 1 week prior to presentation. In ED arthrocentesis consistent with septic arthritis. Review of Systems Review of Systems: Yes all other systems are reviewed and are negative [facility] Medical History Arthritis DVT of proximal leg (deep vein thrombosis) Surgical History H/O right knee surgery Social History Household Members: Spouse Housing: House Do you presently have visiting nurse or other home services: No Alcohol intake: former Patient Tobacco Use Status: Never used Tobacco Smoked in Last 30 Days: No Patient Interested in Nicotine Replacement: No Patient Given Instructions on How to Stop Smoking: No Second Hand Smoke Exposure: No Use of substances other than those prescribed or required for medical reasons: No Substance Use Type: Marijuana Currently Displaying Signs/Symptoms of Drug Intoxication Withdrawal: No Any prior treatment program specific to substance use: No Have you been hit, kicked, punched, or otherwise hurt by someone within the past year? If so, by whom?: No Do you feel safe in your current relationship?: Yes Is there a partner from a previous relationship who is making you feel unsafe now?: No Are you made to feel afraid or neglected: No Are you DNR?: No Advance Directives: No Advance Directives Information Provided: No Advance Directives on File: No Do you have thoughts of harming others: None Do you have a plan to hurt others: No Plan Recently lost weight without trying: No Nutrition Risks: No Nutritional Risk Poor oral hygiene: No service: No Meds Allergies Allergy/AdvReac Type Severity Reaction Status Date / Time No Known Allergies Allergy Verified 12/30/21 16:00 [No Known Allergies*] Active Medications: Current Medications Acetaminophen (Acetaminophen 325 Mg Tablet) 650 mg PO Q6H PRN PRN Reason: Pain, Mild (Pain Scale 1-3) Last Admin: 12/01/22 09:52 Dose: 650 mg Albuterol Sulfate (Albuterol Sulfate (0.083%) 2.5 Mg/3 Ml Vial.Neb) 2.5 mg INHALE ONCE PRN PRN Reason: Wheezing Apixaban (Apixaban 5 Mg Tablet) 10 mg PO BID [facility] Stop: 12/03/22 21:01 Last Admin: 12/01/22 13:58 Dose: 10 mg Apixaban (Apixaban 5 Mg Tablet) 5 mg PO BID [facility] Celecoxib (Celecoxib 200 Mg Capsule) 200 mg PO BID [facility] Last Admin: 12/01/22 11:48 Dose: 200 mg Docusate Sodium (Docusate Sodium 100 Mg Capsule) 100 mg PO BID [facility] Last Admin: 12/01/22 11:48 Dose: 100 mg Hydromorphone HCl (Hydromorphone Hcl 0.5 Mg/0.5 Ml Syringe) 0.25 mg IVPUSH Q4H PRN; Protocol PRN Reason: Pain, Severe (Pain Scale 7-10) Last Admin: 12/01/22 05:07 Dose: 0.25 mg Vancomycin HCl 1,000 mg/ (Sodium Chloride) 270 mls @ 270 mls/hr IV Q12H [facility] Last Infusion: 12/01/22 15:11 Dose: Infused Ondansetron HCl (Ondansetron Hcl 4 Mg/2 Ml Vial) 4 mg IVPUSH Q8H PRN PRN Reason: Nausea and Vomiting Oxycodone HCl (Oxycodone Hcl Immed Release 5 Mg Tablet) 5 mg PO Q4H PRN PRN Reason: Pain, Moderate(Pain Scale 4-6) Last Admin: 12/01/22 05:07 Dose: 5 mg Oxycodone HCl (Oxycodone Hcl Er 10 Mg Tab.Er.12h) 10 mg PO BID [facility] Last Admin: 12/01/22 11:48 Dose: 10 mg Pharmacy Consult (Consult Rx Vancomycin Dosing) 1 each MISCELLANE DAILY PRN PRN Reason: Consult order Sodium Chloride (0.9 % Sodium Chloride Flush 3 Ml Syringe) 3 ml IVFLUSH QSHIFT [facility] Last Admin: 12/01/22 15:32 Dose: Not Given Home Medications Medication Instructions Recorded Confirmed Last Taken Type acetaminophen 500 mg tablet 1,000 mg PO Q8H 12/01/22 12/01/22 11/30/22 History apixaban 5 mg (74 tabs) tablets in 10 mg PO DIRECTED 12/01/22 12/01/22 11/30/22 History a dose pack (Eliquis DVT-PE Treat 10 mg 30D Start) clobetasol 0.05 % topical ointment 1 appl topical DAILY PRN Rash 12/01/22 12/01/22 11/30/22 History etanercept 50 mg/mL (1 mL) 50 mg subcut Q28D PRN arthritis 12/01/22 12/01/22 11/30/22 History subcutaneous pen injector (Enbrel flare SureClick) ondansetron HCl 4 mg tablet 4 mg PO Q8H PRN nausea 12/01/22 12/01/22 11/30/22 History oxycodone 5 mg tablet 5 - 10 mg PO Q4H PRN pain 12/01/22 12/01/22 11/30/22 History Physical Exam Vital Signs and Narrative: Vital Signs: Last Vital Signs Temp 97.4 F 12/01/22 16:00 Pulse 95 12/01/22 16:00 Resp 16 12/01/22 16:00 BP 129/73 12/01/22 16:00 Pulse Ox 95 12/01/22 16:00 O2 Del Method Room Air 12/01/22 16:00 O2 Flow Rate 2 12/01/22 10:30 BMI result Body Mass Index 28.7 General: AO X 3, no acute distress Resp: CTA bilateral, no accessory muscles used CVS: S1,S2,RRR GI: soft, non tender, non distended Neuro: motor grossly intact, alert Psych: appropriate affect, appropriate insight Results Labs 11/30/22 21:23 12/01/22 11:33 Labs: Laboratory Results - last 24 hr 11/30/22 11/30/22 12/01/22 21:23 21:24 00:39 MCV 87.8 MCH 30.1 MCHC 34.3 RDW 12.7 Plt Count 204 D MPV 9.8 Immature Gran % (Auto) 0.5 H Neut % (Auto) 85.0 H Lymph % (Auto) 2.6 L [place] % (Auto) 11.5 H Eos % (Auto) 0.1 Baso % (Auto) 0.3 Lymph # (Auto) 0.3 L [place] # (Auto) 1.3 H Eos # (Auto) 0.0 Baso # (Auto) 0.0 Abs Immat Gran (auto) 0.06 H Absolute Neuts (auto) 9.7 H Absolute Nucleated RBC 0.000 Nucleated RBC % (auto) 0.0 ESR 59 H PT 23.3 H INR 1.9 H APTT 34.6 Anion Gap 13 Estim Creat Clear Calc 100.7 Estimated GFR > 60 Random Glucose 116 H Lactic Acid 1.2 Calcium 10.0 C-Reactive Protein 29.08 H Synovial Source RIght knee Synovial WBC 121.806 Synovial RBC 0.218 Synovial Neutrophils 99 Synovial Monocytes 1 Synovial Glucose < 2 Synovial Total Protein 4.6 COVID-19 (SHAMIR) Negative COVID-19 Clin Com See Note 12/01/22 11:33 MCV MCH MCHC RDW Plt Count MPV Immature Gran % (Auto) Neut % (Auto) Lymph % (Auto) [place] % (Auto) Eos % (Auto) Baso % (Auto) Lymph # (Auto) [place] # (Auto) Eos # (Auto) Baso # (Auto) Abs Immat Gran (auto) Absolute Neuts (auto) Absolute Nucleated RBC Nucleated RBC % (auto) ESR PT INR APTT Anion Gap Estim Creat Clear Calc 95.8 Estimated GFR > 60 Random Glucose Lactic Acid Calcium C-Reactive Protein Synovial Source Synovial WBC Synovial RBC Synovial Neutrophils Synovial Monocytes Synovial Glucose Synovial Total Protein COVID-19 (SHAMIR) COVID-19 Clin Com Imaging Radiologist's Impressions: Impressions Knee X-Ray 11/30/22 20:37 IMPRESSION: Abnormal study. A large suprapatellar hyperdense effusion is present may represent hemarthrosis. No radiographic evidence of any displaced fracture, subluxation or dislocation. Venous Duplex 11/30/22 20:55 IMPRESSION: 1. No DVT demonstrated in the right lower extremity. 2. There is clot again seen within the superficial saphenous vein and varicosities but no extension into the deep venous system. This was noted on the prior 11/27/2022 study as well 3. There is a new complex joint effusion seen in the right knee. Etiology of this is uncertain but this was seen as well on the plain films from earlier tonight. By report patient was recently started on L request. A hemarthrosis cannot be excluded Assessment and Plan (1) Septic joint of right knee joint: Status: Acute Plan 67M PMH dvt/pe provoked, psoriatic arthritis presented with right knee septic arthtitis septic arthritis follow up cultures iv vanc managemnet per primary team recent superficial venous thrombososis with history of DVT/PE eliquis Time Spent With Patient Time: Total time managing care of this patient today ____ minutes.
[2022-12-01] MEDS: 0.9 % Sodium Chloride Flush 3 ML SYRINGE IVFLUSH (23:48)
[2022-12-02] MEDS: vancomycin HCL 1,000 MG in 0.9 % Sodium Chloride 250 ML 270 MG IV ×3 (00:58→21:33)
[2022-12-02 04:00] VITALS: BP 128/72; PULSE 86; RESP 16; TEMP 36.9; O2SAT 97
[2022-12-02 07:04] LABS: Creatinine Clr Calc Pharmacy 111.7; Estimated Glomerular Filt Rate > 60
[2022-12-02 07:48] VITALS: BP 132/76; PULSE 97; RESP 16; TEMP 36.5; O2SAT 96
[2022-12-02] MEDS: Apixaban 5 MG TABLET 10 MG PO ×2 (08:36→21:31)
[2022-12-02] MEDS: Celecoxib 200 MG CAPSULE PO ×2 (08:36→21:30)
[2022-12-02] MEDS: Docusate Sodium 100 MG CAPSULE PO ×2 (08:36→21:30)
[2022-12-02] MEDS: oxyCODONE HCl ER 10 MG TAB.ER.12H PO ×2 (08:37→21:31)
[2022-12-02] MEDS: 0.9 % Sodium Chloride Flush 3 ML SYRINGE IVFLUSH ×3 (08:37→22:43)
--- NOTE | 2022-12-02 09:07 | P.PNOP_ITS ---
Subjective Subjective Date of Service: 12/02/22 Interval history: PoD1 s/p right knee arthroscopic irrigation, debridement, and lavage. Patient resting in bed comfortably. No overnight events. Pain is managed. No additional complaints. Physical Exam Vital Signs: Vital Signs: Last Vital Signs Temp 97.7 F 12/02/22 07:48 Pulse 97 12/02/22 07:48 Resp 16 12/02/22 07:48 BP 132/76 12/02/22 07:48 Pulse Ox 96 12/02/22 07:48 O2 Del Method Room Air 12/02/22 07:48 O2 Flow Rate 2 12/01/22 10:30 BMI result Body Mass Index 28.7 Const: General: cooperative, healthy appearing and no acute distress Resp: Effort & Inspection: normal respiratory effort and able to speak in complete sentences Cardio: Rate: regular rate Peripheral pulses: Peripheral pulses 2+ throug hout GI: Palpation (GI): Soft to palpation Skin: Lesions: no lesions Rashes: no rashes Extrem: Other: Right knee dressings are c/d/i. Able to slightly flex and extend better than yesterdays exam. NVI. Procedures Date of Service Date of Service: 12/02/22 Progress Note: A&P Assessment and plan (1) Septic joint of right knee joint: Status: Acute Assessment and Plan: Encourage gentle knee ROM WBAT with crutches Continue to monitor cultures Pain management as appropriate Time Spent With Patient Time: Total time managing care of this patient today ____ minutes. Quality Stroke Does the patient have a stroke diagnosis?: No VTE Prior VTE?: No VTE Risk Level:: Medical - moderate - high VTE Device Contraindication: N/A - Device Ordered VTE Drug Contraindication: N/A - Med Ordered
[2022-12-02] MEDS: oxyCODONE HCl Immed Release 5 MG TABLET PO ×2 (11:16→22:39)
[2022-12-02] MEDS: Acetaminophen 325 MG TABLET 650 MG PO ×2 (11:17→22:41)
[2022-12-02 11:52] LABS: Vancomycin Random 6.1 mcg/mL (15-20)
--- NOTE | 2022-12-02 12:18 | HE.PHANOTE ---
RE: vanco Trough on 12/02 came back low at 6.1 mg/L; increased dose to 1000mg Q8H with predicted AUC of 483 mg/L, trough of 13.7 mg/L. Next level to be drawn 12/03/22 @1100. Will adjust accordingly
--- NOTE | 2022-12-02 13:45 | HO.POSTANES ---
Post Anesthesia Evaluation Post Anesthesia Evaluation Date of Service: 12/01/22 Vital Signs: Vital Signs Temp Pulse Resp BP Pulse Ox O2 Del Method 12/02/22 07:48 97.7 F 97 16 132/76 96 Room Air 12/02/22 04:00 98.4 F 86 16 128/72 97 Room Air Anesthesia: General LMA Mental Status: Awake Pain Control: Satisfactory Nausea/Vomiting: None Hydration: Adequate Anesthesia-Related Issues: No Anes. Related Issues
[2022-12-02 15:26] VITALS: BP 120/74; PULSE 87; RESP 16; TEMP 36.3; O2SAT 96
[2022-12-02 19:09] VITALS: BP 119/67; PULSE 100; RESP 16; TEMP 36.3; O2SAT 98
[2022-12-03 04:00] VITALS: BP 122/71; PULSE 80; RESP 16; TEMP 36.2; O2SAT 97
[2022-12-03] MEDS: vancomycin HCL 1,000 MG in 0.9 % Sodium Chloride 250 ML 270 MG IV (04:14)
[2022-12-03 06:51] LABS: Creatinine Clr Calc Pharmacy 106.1; Estimated Glomerular Filt Rate > 60
--- NOTE | 2022-12-03 07:00 | CA_ITS ---
Transthoracic Echocardiogram Patient (Last, First, Middle): Caleb Zheng, Gender: Male Date of : 1955 Age: 67 Procedure Date: 12/03/2022 Procedure Type: Transthoracic Echocardiogram Location: S3E Height: 182.88 cm Weight: 95.71 kg BSA: 2.18 m2 Heart Rate: 87 bpm BP: 132 / 80 mmHg Systems Program Manager: VITOR Referring MD: Luis Hemphill MD Symptoms: bacteremia Study Quality: Adequate ECG Rhythm: Sinus Conclusions: - The left ventricular systolic function is normal. The calculated ejection fraction is 61% by biplane method. - Moderately increased right ventricular cavity size. - There is mild calcification of the aortic valve. - There is mild mitral annular calcification. - No obvious vegetation. Findings Left Ventricle Normal left ventricular cavity size. There is mildly increased left ventricular wall thickness. The left ventricular systolic function is normal. The calculated ejection fraction is 61% by biplane method. There is no evidence of regional wall motion abnormalities. Diastolic function is normal for age. Right Ventricle Moderately increased right ventricular cavity size. There is normal right ventricular systolic function. Atria Both atria are normal in size. Aortic Valve There is mild calcification of the aortic valve. There is no aortic valve stenosis. There is no aortic valve regurgitation. Mitral Valve There is mild anterior mitral leaflet thickening. There is mild mitral annular calcification. There is no mitral valve stenosis. Pulmonic Valve The pulmonic valve is likely normal. Tricuspid Valve Normal tricuspid valve structure. There is trace tricuspid valve regurgitation. There is no evidence of pulmonary hypertension. Great Vessels The asc aorta is normal in size. Venous The inferior vena cava is normal in size and collapses greater than 50% with inspiration. Pericardium/Pleural There is a trivial pericardial effusion. Prior Study Comparison No significant change compared to prior study dated: 01/29/2020. Measurements 2D Linear Measurements IVSd: 1.02 0.6-0.9/0.6-1.0 cm LVIDd: 5.21 3.9-5.3/4.2-5.9 cm LVIDd Index: 2.39 2.4-3.2/2.2-3.1 cm/m2 LVIDs: 2.73 2.0-3.6 cm LVPWd: 1.10 0.7-1.1 cm LA Diam: 3.10 2.7-3.8/3.0-4.0 cm LAIDs Index: 1.42 1.5-2.3 cm/m2 LV Mass: 262.51 67-162/88-224 g LV Mass Index: 120.42 43-95/49-115 g/m2 LVOT Diam: 2.30 3.0+(-)1.3 cm 2D Systolic Function EF 4C: 66.00 >55% EF 2C: 55.20 >55% EF BiP: 61.00 >55% Mitral Valve MV Pk E: 0.83 MV PK A: 1.02 MV Decel Time: 384.00 E/A: 0.80 E'Lateral: 10.30 E'Medial: 8.16 E/E' Med: 10.20 E/E' Lat: 8.10 PHT: 112.00 MVA PHT: 1.96 Decel [place]: 2.17 Aortic Valve AoV Pk Janes: 1.95 AoV Mn Janes: 1.36 AoV VTI: 0.36 AoV Pk Grad: 15.00 Aov Mn Grad: 9.00 EDSON Cont.VTI: 2.90 LVOT LVOT Pk Janes: 1.28 LVOT Mn Janes: 0.96 LVOT VTI: 0.25 LVOT Pk Grad: 7.00 LVOT Mn Grad: 4.00 LVOT Diam: 2.30 LVOT Area: 4.15 Diastolic Function MV Pk E: 0.83 MV Pk A: 1.02 E/A: 0.80 E'Medial: 8.16 E/E' Med: 10.20 E' Laterial: 10.30 E/E' Lat: 8.10 Right Ventricle TAPSE (mm): 34.50 TVS' Janes: 16.20 Tricuspid Valve TR Pk Janes: 2.43 TR Pk Grad: 24.00 RA Press: 3.00 RVSP: 27.00 Great Vessels Aorta Sinus of Valsalva: 4.60 2.0-3.5 cm Ao Asc: 3.80 2.1-3.4 cm Pulmonary Valve PV Pk Janes: 1.32 Peak PV Grad: 7.00 Updated in Other Vendor System with Status of Final Pasquale Guevara MD electronically signed on 12/04/2022 10:03:45 AM with status of Final
[2022-12-03 07:14] VITALS: BP 132/80; PULSE 84; RESP 20; TEMP 36.6; O2SAT 98
[2022-12-03] MEDS: oxyCODONE HCl ER 10 MG TAB.ER.12H PO ×2 (08:46→20:45)
[2022-12-03] MEDS: Apixaban 5 MG TABLET 10 MG PO ×2 (08:46→20:46)
[2022-12-03] MEDS: Docusate Sodium 100 MG CAPSULE PO ×2 (08:47→20:45)
[2022-12-03] MEDS: Celecoxib 200 MG CAPSULE PO ×2 (08:47→20:46)
[2022-12-03] MEDS: 0.9 % Sodium Chloride Flush 3 ML SYRINGE IVFLUSH ×3 (08:47→20:46)
--- NOTE | 2022-12-03 09:04 | PM.PNORT ---
Subjective Subjective Date of Service: 12/03/22 Interval history: PoD2 s/p right knee arthroscopic irrigation, debridement, and lavage. Patient resting at edge of bed eating breakfast No overnight events. Pain is managed. No additional complaints. Physical Exam Vital Signs: Vital Signs: Last Vital Signs Temp 97.8 F 12/03/22 07:14 Pulse 84 12/03/22 07:14 Resp 20 12/03/22 07:14 BP 132/80 12/03/22 07:14 Pulse Ox 98 12/03/22 07:14 O2 Del Method Room Air 12/03/22 07:14 O2 Flow Rate 2 12/01/22 10:30 BMI result Body Mass Index 28.7 Const: General: cooperative, healthy appearing and no acute distress Resp: Effort & Inspection: normal respiratory effort and able to speak in complete sentences Cardio: Rate: regular rate Peripheral pulses: Peripheral pulses 2+ throughout GI: Palpation (GI): Soft to palpation Skin: Lesions: no lesions Rashes: no rashes Extrem: Other: Right knee dressings are c/d/i. Able to slightly flex and extend better than yesterdays exam. NVI. Procedures Date of Service Date of Service: 12/03/22 Progress Note: A&P Assessment and plan (1) Septic joint of right knee joint: Status: Acute Assessment and Plan: Encourage gentle knee ROM WBAT with crutches cultures: +MRSA -wound care consult placed for abx recommendations Pain management as appropriate Time Spent With Patient Time: Total time managing care of this patient today ____ minutes. Quality Stroke Does the patient have a stroke diagnosis?: No VTE Prior VTE?: No VTE Risk Level:: Medical - moderate - high VTE Device Contraindication: N/A - Device Ordered VTE Drug Contraindication: N/A - Med Ordered
[2022-12-03 10:04] VITALS: BP 132/80; PULSE 84; O2SAT 98
[2022-12-03] MEDS: oxyCODONE HCl Immed Release 5 MG TABLET PO ×2 (12:32→20:46)
[2022-12-03] MEDS: Acetaminophen 325 MG TABLET 650 MG PO ×2 (12:33→20:46)
[2022-12-03 13:39] LABS: Vancomycin Trough 9.5 mcg/mL (10.0-20.0)
--- NOTE | 2022-12-03 13:58 | HE.PHANOTE ---
RE VANCO DOSING RENAL FUNCTION STABLE BUT TROUGH LOW AT 9.5. INSIGHT SHOWS STEADY STATE WILL ONLY ACHIEVE AUC 436 AND TROUGH 11.1 AT 1000 Q8 DOSING SO INCREASING DOSE TO 1250 Q8 AND RECHECK TROUGH 12/04 @2100.
[2022-12-03] MEDS: vancomycin HCL 1,250 MG in 0.9 % Sodium Chloride 250 ML 166.67 MG IV ×2 (14:23→22:25)
[2022-12-03 14:54] LABS: Erythrocyte Sedimentation Rate 88 MM/HR (0-15)
[2022-12-03 16:00] VITALS: BP 144/77; PULSE 96; RESP 16; TEMP 37; O2SAT 99
--- NOTE | 2022-12-03 16:27 | P.CNID_ITS ---
History of Present Illness Data of Consult Service Date: 12/03/22 Requesting physician: Nelda Gamez Primary Care Provider: Gonzalo Chaidez MD HPI Reason for consult: right knee infection,MRSA sepsis He presents with right knee pain and swelling. He had right arthroplasty of knee for torn cartilage on 11/23 at [facility]. He says his dressing slid off immediately postop. He said area has leaked since. He thought may have been stitch abscess but had more swelling and came to hospital He did talk to his Orthopedist who thought he may have hemarthrosis. He has MRSA blood and wound Review of Systems 2 Review of Systems: Yes all other systems are reviewed and are negative [facility] Past Medical History Medical History (Updated 12/03/22 @ 16:40 by Amy Garcia MD) MRSA bacteremia Arthritis DVT of proximal leg (deep vein thrombosis) Family History Family history: reviewed and not pertinent Surgical History Surgical History H/O right knee surgery Social History Social History Household Members: Spouse Housing: House Do you presently have visiting nurse or other home services: No Alcohol intake: former Patient Tobacco Use Status: Never used Tobacco Second Hand Smoke Exposure: No Substance Use Type: Marijuana service: No Meds Allergies Allergy/AdvReac Type Severity Reaction Status Date / Time No Known Allergies Allergy Verified 12/30/21 16:00 [No Known Allergies*] Active Medications: Current Medications Acetaminophen (Acetaminophen 325 Mg Tablet) 650 mg PO Q6H PRN PRN Reason: Pain, Mild (Pain Scale 1-3) Last Admin: 12/03/22 12:33 Dose: 650 mg Albuterol Sulfate (Albuterol Sulfate (0.083%) 2.5 Mg/3 Ml Vial.Neb) 2.5 mg INHALE ONCE PRN PRN Reason: Wheezing Apixaban (Apixaban 5 Mg Tablet) 10 mg PO BID [facility] Stop: 12/03/22 21:01 Last Admin: 12/03/22 08:46 Dose: 10 mg Apixaban (Apixaban 5 Mg Tablet) 5 mg PO BID [place] Celecoxib (Celecoxib 200 Mg Capsule) 200 mg PO BID [facility] Last Admin: 12/03/22 08:47 Dose: 200 mg Docusate Sodium (Docusate Sodium 100 Mg Capsule) 100 mg PO BID [facility] Last Admin: 12/03/22 08:47 Dose: 100 mg Hydromorphone HCl (Hydromorphone Hcl 0.5 Mg/0.5 Ml Syringe) 0.25 mg IVPUSH Q4H PRN; Protocol PRN Reason: Pain, Severe (Pain Scale 7-10) Last Admin: 12/01/22 05:07 Dose: 0.25 mg Vancomycin HCl 1,250 mg/ (Sodium Chloride) 250 mls @ 166.667 mls/hr IV Q8H [facility] Last Infusion: 12/03/22 16:10 Dose: Infused Ondansetron HCl (Ondansetron Hcl 4 Mg/2 Ml Vial) 4 mg IVPUSH Q8H PRN PRN Reason: Nausea and Vomiting Oxycodone HCl (Oxycodone Hcl Immed Release 5 Mg Tablet) 5 mg PO Q4H PRN PRN Reason: Pain, Moderate(Pain Scale 4-6) Last Admin: 12/03/22 12:32 Dose: 5 mg Oxycodone HCl (Oxycodone Hcl Er 10 Mg Tab.Er.12h) 10 mg PO BID [facility] Last Admin: 12/03/22 08:46 Dose: 10 mg Pharmacy Consult (Consult Rx Vancomycin Dosing) 1 each MISCELLANE DAILY PRN PRN Reason: Consult order Sodium Chloride (0.9 % Sodium Chloride Flush 3 Ml Syringe) [facility] Last Admin: 12/03/22 16:10 Dose: 3 ml Home Medications Medication Instructions Recorded Confirmed Last Taken Type acetaminophen 500 mg tablet 1,000 mg PO Q8H 12/01/22 12/01/22 11/30/22 History apixaban 5 mg (74 tabs) tablets in 10 mg PO DIRECTED 12/01/22 12/01/22 11/30/22 History a dose pack (Eliquis DVT-PE Treat 10 mg 30D Start) clobetasol 0.05 % topical ointment 1 appl topical DAILY PRN Rash 12/01/22 12/01/22 11/30/22 History etanercept 50 mg/mL (1 mL) 50 mg subcut Q28D PRN arthritis 12/01/22 12/01/22 11/30/22 History subcutaneous pen injector (Enbrel flare SureClick) ondansetron HCl 4 mg tablet 4 mg PO Q8H PRN nausea 12/01/22 12/01/22 11/30/22 History oxycodone 5 mg tablet 5 - 10 mg PO Q4H PRN pain 12/01/22 12/01/22 11/30/22 History Physical Exam 2 Vital Signs: Vital Signs: Last Vital Signs Temp 98.6 F 12/03/22 16:00 Pulse 96 12/03/22 16:00 Resp 16 12/03/22 16:00 BP 144/77 H 12/03/22 16:00 Pulse Ox 99 12/03/22 16:00 O2 Del Method Room Air 12/03/22 16:00 O2 Flow Rate 2 12/01/22 10:30 BMI result Body Mass Index 28.7 Const: General: cooperative HEENT: Head: Yes normal to inspection Face and sinus: Yes normal facial exam Mouth: Normal oral and palatal mucosa present Teeth and gingiva: d entition normal Eyes: General: appearance normal, both eyes and all related structures P upils: Equal, round and reactive pupils present Resp: Effort & Inspection: normal respiratory effort Cardio: Rate: regular rate Rhythm: regular rhythm GI: Palpation (GI): Soft to palpation and nontender : General: Yes no CVA tenderness Back/Spine/Pelvis: Back: no CVA tenderness Skin: General skin exam: no rashes or lesions noted Neuro: General: moves all extremities Cranial nerves: Yes Equal, round and reactive pupils present Extrem: Other: right knee wrapped General: Yes normal to inspection Psych: Appearance: grossly normal Results Labs 11/30/22 21:23 12/03/22 06:03 Labs: BMP 12/03/22 06:03 Creatinine 0.80 Microbiology Microbiology Results: Microbiology 12/01/22 00:39 Knee aspirate Gram Stain - Final 12/01/22 00:39 Knee aspirate Anaerobic Culture - Preliminary Culture in progress. 12/01/22 00:39 Knee aspirate Gross Specimen Examination - Final 12/01/22 00:39 Knee aspirate Fluid Crystals - Final 12/01/22 00:39 Knee aspirate Joint Fluid Culture - Final Methicillin Res Staph Aureus 11/30/22 21:23 Blood - Venous Blood Culture - Final Methicillin Res Staph Aureus 11/30/22 21:23 Blood - Venous Blood Culture - Preliminary No growth after 48 hours. Assessment and Plan (1) MRSA bacteremia: Status: Acute Knee is likely source of bacteremia. He has had recent surgery but has no hardware. (2) Septic joint of right knee joint: Status: Acute Plan Vancomycin or Daptomycin for six weeks then po Doxycycline possible. Check echo evaluate endocarditis. Time Spent With Patient Time: Total time managing care of this patient today ____ minutes.
[2022-12-03 19:23] VITALS: BP 143/81; PULSE 96; RESP 20; TEMP 36.2; O2SAT 97
[2022-12-04 00:11] VITALS: BP 137/78; PULSE 90; RESP 18; TEMP 36.3; O2SAT 96
[2022-12-04 06:06] LABS: Creatinine Clr Calc Pharmacy 117.9; Estimated Glomerular Filt Rate > 60
[2022-12-04] MEDS: vancomycin HCL 1,250 MG in 0.9 % Sodium Chloride 250 ML 166.67 MG IV ×2 (06:14→15:28)
[2022-12-04 07:30] VITALS: BP 156/78; PULSE 91; RESP 20; TEMP 37.1; O2SAT 99
[2022-12-04] MEDS: Docusate Sodium 100 MG CAPSULE PO ×2 (08:21→21:36)
[2022-12-04] MEDS: Acetaminophen 325 MG TABLET 650 MG PO ×2 (08:21→19:25)
[2022-12-04] MEDS: 0.9 % Sodium Chloride Flush 3 ML SYRINGE IVFLUSH ×2 (08:21→23:43)
[2022-12-04] MEDS: Apixaban 5 MG TABLET PO (08:21)
[2022-12-04] MEDS: Celecoxib 200 MG CAPSULE PO ×2 (08:21→21:36)
[2022-12-04] MEDS: oxyCODONE HCl Immed Release 5 MG TABLET PO ×2 (12:24→19:26)
--- NOTE | 2022-12-04 13:09 | PM.PNORT ---
Subjective Subjective Date of Service: 12/04/22 Interval history: PoD3 s/p right knee arthroscopic irrigation, debridement, and lavage. Patient resting in bed No overnight events. Pain is managed. c/o left thight swelling Physical Exam Vital Signs: Vital Signs: Last Vital Signs Temp 98.7 F 12/04/22 07:30 Pulse 91 12/04/22 07:30 Resp 20 12/04/22 07:30 BP 156/78 H 12/04/22 07:30 Pulse Ox 99 12/04/22 07:30 O2 Del Method Room Air 12/04/22 07:30 O2 Flow Rate 2 12/01/22 10:30 BMI result Body Mass Index 28.7 Const: General: cooperative, healthy appearing and no acute distress Resp: Effort & Inspection: normal respiratory effort and able to speak in complete sentences Cardio: Rate: regular rate Peripheral pulses: Peripheral pulses 2+ throughout GI: Palpation (GI): Soft to palpation Skin: Lesions: no lesions Rashes: no rashes Extrem: Other: Right knee dressings are c/d/i. Able to slightly flex and extend better than yesterdays exam. NVI. Thigh has some swelling but no areas of fluctulance Procedures Date of Service Date of Service: 12/04/22 Progress Note: A&P Assessment and plan (1) Septic joint of right knee joint: Status: Acute Assessment and Plan: Encourage gentle knee ROM WBAT with crutches cultures: +MRSA -ID recommends: -repeat blood cx x2-pending -ECHo neg vegetation -vanco + dapto x6 weeks Pain management as appropriate Time Spent With Patient Time: Total time managing care of this patient today ____ minutes. Quality Stroke Does the patient have a stroke diagnosis?: No VTE Prior VTE?: No VTE Risk Level:: Medical - moderate - high VTE Device Contraindication: N/A - Device Ordered VTE Drug Contraindication: N/A - Med Ordered
[2022-12-04 16:00] VITALS: BP 153/87; PULSE 95; RESP 20; TEMP 36.3; O2SAT 98
[2022-12-04] MEDS: HYDROmorphone HCl 0.5 MG/0.5 ML SYRINGE 0.25 MG IVPUSH (17:32)
[2022-12-04 19:58] VITALS: BP 140/72; PULSE 102; RESP 20; TEMP 36.7; O2SAT 98
[2022-12-04] MEDS: oxyCODONE HCl ER 10 MG TAB.ER.12H PO (21:36)
[2022-12-04 21:37] LABS: Vancomycin Random 17.3 mcg/mL (15-20)
[2022-12-04] MEDS: HYDROmorphone HCl 0.5 MG/0.5 ML SYRINGE IVPUSH (22:12)
[2022-12-04] MEDS: Acetaminophen 1,000 MG/100 ML PIGGYBACK 400 MG IV (22:12)
--- NOTE | 2022-12-04 22:15 | PM.EVENT ---
Event Note Date of Service: 12/04/22 Event Note: 67-year-old male admitted to Orthopedic surgery for management of septic joint of right knee s/p washout complicated by MRSA bacteremia. Today, medial aspect of the right knee and right thigh is become progressively warm, swollen, and painful. Currently rates this as an 8/10 pain. He is on Eliquis for superficial thrombosis of the right superficial saphenous vein and variscosities but no extension into the deep venous system. The patient is afebrile, vitals stable. On exam, there are 3 surgical incisions with minimal serous drainage with [address] in each incision. There is redness and swelling of the medial aspect of the knee. The entirety of the right upper leg is erythematous, warm without any obvious fluctuance or focal areas of swelling concerning for hematoma. Will check CBC and CT right femur without IV contrast, results pending. Continue vancomycin at this time. Consider broadening antibiotic coverage pending CT results. Discussed with orthopedic team. Time Spent With Patient Time: Total time managing care of this patient today ____ minutes.
--- NOTE | 2022-12-04 22:29 | HE.PHANOTE ---
Vanco trough increased to 17.3. Redce dose to 1 gm q8h for auc 490
[2022-12-04] MEDS: vancomycin HCL 1,000 MG in 0.9 % Sodium Chloride 250 ML 270 MG IV (22:38)
[2022-12-04 23:02] LABS: MANUAL DIFF FLAG NO
[2022-12-04 23:07] LABS: Basophils Percent Auto 0.5 % (0-2); Eosinophils Absolute Auto 0.1 X10*3/uL (0.0-0.4); Eosinophils Percent Auto 0.9 % (0-4); Hematocrit 33.6 % (42.0-52.0); Hemoglobin 11.3 g/dl (14.0-18.0); Imm Gran Abs Auto 0.08 X10*3/uL (0.00-0.03); Imm Gran Pct Auto 1.2 % (0.0-0.4); Lymphocytes Absolute Auto 0.5 X10*3/uL (1.2-4.9); Mean Corpuscular HGB Conc 33.6 g/dl (31.0-36.0); Mean Corpuscular Hemoglobin 29.7 pg (27.0-33.0); Mean Corpuscular Volume 88.4 fL (80.0-98.0); Mean Platelet Volume 9.3 fL (9.4-12.4); Monocytes Absolute Auto 1.1 X10*3/uL (0.1-1.2); Neutrophils Absolute Auto 4.9 x10*3/uL (2.0-8.3); Neutrophils Percent Auto 73.4 % (45-73); Platelet Count 262 X10*3/uL (160-400); Red Cell Distribution Width 13.4 % (11.0-16.0); White Blood Count 6.6 X10*3/uL (4.8-10.8)
[2022-12-04 23:45] VITALS: BP 130/75; PULSE 82; RESP 18; TEMP 36.6; O2SAT 95
[2022-12-05] MEDS: Acetaminophen 1,000 MG/100 ML PIGGYBACK 400 MG IV ×2 (03:53→09:42)
[2022-12-05] MEDS: vancomycin HCL 1,000 MG in 0.9 % Sodium Chloride 250 ML 270 MG IV ×2 (06:21→14:14)
[2022-12-05 06:38] LABS: Creatinine Clr Calc Pharmacy 136.9; Estimated Glomerular Filt Rate > 60
[2022-12-05 07:40] VITALS: BP 156/80; PULSE 87; RESP 16; TEMP 36.1; O2SAT 99
[2022-12-05] MEDS: Docusate Sodium 100 MG CAPSULE PO ×2 (07:48→20:36)
[2022-12-05] MEDS: Celecoxib 200 MG CAPSULE PO ×2 (07:48→20:36)
[2022-12-05] MEDS: HYDROmorphone HCl 0.5 MG/0.5 ML SYRINGE IVPUSH ×3 (07:52→20:09)
--- NOTE | 2022-12-05 10:01 | P.PNIM_ITS ---
Subjective Subjective Date of Service: 12/05/22 Interval History: Seen and evaluated Feels better pain under better control pending repeat cultures Review of Systems Review of Systems: Yes all other systems are reviewed and are negative Physical Exam 2 Vital Signs: Vital Signs: Last Vital Signs Temp 97.0 F 12/05/22 07:40 Pulse 87 12/05/22 07:40 Resp 16 12/05/22 07:40 BP 156/80 H 12/05/22 07:40 Pulse Ox 99 12/05/22 07:40 O2 Del Method Room Air 12/05/22 07:40 O2 Flow Rate 2 12/01/22 10:30 BMI result Body Mass Index 28.7 Const: Other: Constitutional : Awake, interactive, not in distress Neck : Normal inspection, Supple Cardiovascular : RRR, no JVP, no lower extremity edema Respiratory : good bilateral air entry, no crackles, wheezes or rhonchi Gastrointestinal: soft, lax, Normal bowel sounds, Non tender Skin : Warm, Dry Skeletal: mild right thigh swelling w no tenderness, right knee in dressing Neurological : Alert & oriented x3, No focal deficit Objective Data Active Medications Acetaminophen (Acetaminophen 325 Mg Tablet) 650 mg PO Q6H PRN PRN Reason: Pain, Mild (Pain Scale 1-3) Last Admin: 12/04/22 19:25 Dose: 650 mg Documented By: LUCI Albuterol Sulfate (Albuterol Sulfate (0.083%) 2.5 Mg/3 Ml Vial.Neb) 2.5 mg INHALE ONCE PRN PRN Reason: Wheezing Apixaban (Apixaban 5 Mg Tablet) 5 mg PO BID [facility] Last Admin: 12/05/22 07:21 Dose: Not Given Documented By: CIERRA Non-Admin Reason: Patient Refused Celecoxib (Celecoxib 200 Mg Capsule) 200 mg PO BID [facility] Last Admin: 12/05/22 07:48 Dose: 200 mg Documented By: CIERRA Docusate Sodium (Docusate Sodium 100 Mg Capsule) 100 mg PO BID [facility] Last Admin: 12/05/22 07:48 Dose: 100 mg Documented By: CIERRA Hydromorphone HCl (Hydromorphone Hcl 0.5 Mg/0.5 Ml Syringe) 0.5 mg IVPUSH Q4H PRN; Protocol PRN Reason: Pain, Severe (Pain Scale 7-10) Last Admin: 12/05/22 07:52 Dose: 0.5 mg Documented By: CIERRA Acetaminophen (Ofirmev) 1,000 mg in 100 mls @ 400 mls/hr IV Q6H [facility] Stop: 12/05/22 16:14 Last Infusion: 12/05/22 09:59 Dose: Infused Documented By: CIERRA Vancomycin HCl 1,000 mg/ (Sodium Chloride) 270 mls @ 270 mls/hr IV Q8H [facility] Last Infusion: 12/05/22 07:22 Dose: Infused Documented By: CIERRA Ondansetron HCl (Ondansetron Hcl 4 Mg/2 Ml Vial) 4 mg IVPUSH Q8H PRN PRN Reason: Nausea and Vomiting Oxycodone HCl (Oxycodone Hcl Immed Release 5 Mg Tablet) 5 mg PO Q4H PRN PRN Reason: Pain, Moderate(Pain Scale 4-6) Last Admin: 12/04/22 19:26 Dose: 5 mg Documented By: LUCI Oxycodone HCl (Oxycodone Hcl Er 10 Mg Tab.Er.12h) 10 mg PO BID [facility] Last Admin: 12/05/22 07:42 Dose: Not Given Documented By: CIERRA Non-Admin Reason: Patient Refused Pharmacy Consult (Consult Rx Vancomycin Dosing) 1 each MISCELLANE DAILY PRN PRN Reason: Consult order Sodium Chloride (0.9 % Sodium Chloride Flush 3 Ml Syringe) 3 ml IVFLUSH QSHIFT [facility] Last Admin: 12/05/22 09:22 Dose: Not Given Documented By: CIERRA Non-Admin Reason: See Note Labs 12/04/22 22:50 12/05/22 05:13 Labs: Laboratory Results - last 24 hr 12/04/22 12/04/22 12/05/22 20:53 22:50 05:13 MCV 88.4 MCH 29.7 MCHC 33.6 RDW 13.4 Plt Count 262 D MPV 9.3 L Immature Gran % (Auto) 1.2 H Neut % (Auto) 73.4 H Lymph % (Auto) 8.0 L Fannin % (Auto) 16.0 H Eos % (Auto) 0.9 Baso % (Auto) 0.5 Lymph # (Auto) 0.5 L Fannin # (Auto) 1.1 Eos # (Auto) 0.1 Baso # (Auto) 0.0 Abs Immat Gran (auto) 0.08 H Absolute Neuts (auto) 4.9 Absolute Nucleated RBC 0.000 Nucleated RBC % (auto) 0.0 Estim Creat Clear Calc 136.9 Estimated GFR > 60 Random Vancomycin 17.3 Microbiology Microbiology Results: Microbiology 12/01/22 00:39 Gram Stain - Final Knee aspirate Anaerobic Culture - Preliminary Culture in progress. Gross Specimen Examination - Final Fluid Crystals - Final Joint Fluid Culture - Final Methicillin Res Staph Aureus 12/03/22 13:45 Blood Culture - Preliminary Blood - Venous No growth after 24 hours. 12/03/22 13:45 Blood Culture - Preliminary Blood - Venous No growth after 24 hours. Assessment and Plan (1) MRSA bacteremia: Status: Acute (2) Septic joint of right knee joint: Status: Acute Plan 67M PMH dvt/pe provoked, psoriatic arthritis presented with right knee septic arthtitis complicated by MRSA Bacteremia MRSA Bacteremia Pending repeat cultures To get PICC line Continue Vancomycin , Daptomycin on DC follow Vanco trough septic arthritis post cleaning Pending repeat CT scan management per primary team recent superficial venous thrombososis with history of DVT/PE Continue eliquis 5 mg bid for 6 weeks at least Thank you for the consult will continue to monitor the patient with you Time Spent With Patient Time: Total time managing care of this patient today ____ minutes. Quality Stroke Does the patient have a stroke diagnosis?: No VTE Prior VTE?: No VTE Risk Level:: Medical - moderate - high VTE Device Contraindication: N/A - Device Ordered VTE Drug Contraindication: N/A - Med Ordered
[2022-12-05 15:54] VITALS: BP 132/75; PULSE 86; RESP 20; TEMP 36.4; O2SAT 99
[2022-12-05] MEDS: oxyCODONE HCl Immed Release 5 MG TABLET PO (17:05)
--- NOTE | 2022-12-05 19:40 | PM.PNORT ---
Subjective Subjective Date of Service: 12/05/22 Interval history: PoD4 s/p right knee arthroscopic irrigation, debridement, and lavage. Patient resting in bed No overnight events. Pain is managed-states his thigh feel better, less painfull Physical Exam Vital Signs: Vital Signs: Last Vital Signs Temp 97.5 F 12/05/22 15:54 Pulse 86 12/05/22 15:54 Resp 20 12/05/22 15:54 BP 132/75 12/05/22 15:54 Pulse Ox 99 12/05/22 15:54 O2 Del Method Room Air 12/05/22 15:54 O2 Flow Rate 2 12/01/22 10:30 BMI result Body Mass Index 28.7 Const: General: cooperative, healthy appearing and no acute distress Resp: Effort & Inspection: normal respiratory effort and able to speak in complete sentences Cardio: Rate: regular rate Peripheral pulses: Peripheral pulses 2+ throughout GI: Palpation (GI): Soft to palpation Skin: Lesions: no lesions Rashes: no rashes Extrem: Other: Right knee dressings are c/d/i. Able to slightly flex and extend better than yesterdays exam. NVI. Thigh has some swelling but no areas of fluctulance Procedures Date of Service Date of Service: 12/05/22 Progress Note: A&P Assessment and plan (1) Septic joint of right knee joint: Status: Acute Assessment and Plan: Encourage gentle knee ROM WBAT with crutches cultures: +MRSA -ID recommends: -repeat blood cx x2-pending -ECHo neg vegetation -vanco or dapto x6 weeks Pain management as appropriate Time Spent With Patient Time: Total time managing care of this patient today ____ minutes. Quality Stroke Does the patient have a stroke diagnosis?: No VTE Prior VTE?: No VTE Risk Level:: Medical - moderate - high VTE Device Contraindication: N/A - Device Ordered VTE Drug Contraindication: N/A - Med Ordered
[2022-12-05 20:00] VITALS: BP 142/79; PULSE 97; RESP 20; TEMP 36.4; O2SAT 99
[2022-12-05] MEDS: 0.9 % Sodium Chloride Flush 3 ML SYRINGE IVFLUSH (20:09)
[2022-12-05] MEDS: Apixaban 5 MG TABLET PO (20:36)
[2022-12-05] MEDS: oxyCODONE HCl ER 10 MG TAB.ER.12H PO (20:36)
[2022-12-05] MEDS: ondansetron HCL 4 MG/2 ML VIAL IVPUSH (20:36)
[2022-12-05 21:30] LABS: Vancomycin Random 11.3 mcg/mL (15-20)
--- NOTE | 2022-12-05 21:49 | HE.PHANOTE ---
Vancomycin level 11.3, pt crcl keeps improving, dose up to 1250 mg q8h and recheck level 12/06
[2022-12-05] MEDS: vancomycin HCL 1,250 MG in 0.9 % Sodium Chloride 250 ML 270 MG IV (22:20)
[2022-12-06] MEDS: HYDROmorphone HCl 0.5 MG/0.5 ML SYRINGE IVPUSH ×3 (01:33→13:14)
[2022-12-06 04:00] VITALS: BP 145/76; PULSE 85; RESP 16; TEMP 36.2; O2SAT 95
[2022-12-06] MEDS: vancomycin HCL 1,250 MG in 0.9 % Sodium Chloride 250 ML 270 MG IV ×3 (05:36→21:41)
[2022-12-06 07:23] VITALS: BP 145/71; PULSE 83; RESP 16; TEMP 36.1; O2SAT 98
[2022-12-06 07:25] LABS: Hematocrit 32.8 % (42.0-52.0); Hemoglobin 10.9 g/dl (14.0-18.0); Mean Corpuscular HGB Conc 33.2 g/dl (31.0-36.0); Mean Corpuscular Hemoglobin 29.2 pg (27.0-33.0); Mean Corpuscular Volume 87.9 fL (80.0-98.0); Mean Platelet Volume 9.5 fL (9.4-12.4); Platelet Count 327 X10*3/uL (160-400); Red Blood Count 3.73 X10*6/uL (4.60-5.80); Red Cell Distribution Width 13.7 % (11.0-16.0)
[2022-12-06 07:29] LABS: INTERNATIONAL NORM RATIO 1.3 (0.9-1.1); Prothrombin Time 15.7 SEC (11.1-13.3)
[2022-12-06 07:48] LABS: Creatinine Clr Calc Pharmacy 119.6; Estimated Glomerular Filt Rate > 60
[2022-12-06] MEDS: Celecoxib 200 MG CAPSULE PO ×2 (08:02→18:54)
[2022-12-06] MEDS: Docusate Sodium 100 MG CAPSULE PO ×2 (08:03→18:54)
[2022-12-06] MEDS: 0.9 % Sodium Chloride Flush 3 ML SYRINGE IVFLUSH ×2 (08:03→15:42)
[2022-12-06] MEDS: Apixaban 5 MG TABLET PO (08:03)
[2022-12-06] MEDS: oxyCODONE HCl ER 10 MG TAB.ER.12H PO ×2 (08:03→18:54)
[2022-12-06] MEDS: oxyCODONE HCl Immed Release 5 MG TABLET PO ×2 (08:14→15:41)
[2022-12-06 08:28] LABS: Appearance Urine Clear; Color Urine Yellow; Glucose Urine UA Negative (Negative); Leukocyte Esterase Urine Negative (Negative); Nitrite Urine Negative (Negative); PH 6.5 (5.0-9.0); Specific Gravity - Urine 1.015 (1.005-1.025); UMIC TRIGGER UACC YES; Urine Blood Negative (Negative); Urine Ketones 15 mg/dL (Negative); Urine Protein 30 (1+) mg/dL (Neg-Trace)
[2022-12-06 08:33] LABS: Bacteria Urine None Seen (None Seen); Hyaline Casts Urine 0-2 /LPF (0-2); RBC Urine 0-2 /HPF (0-2); Squamous Epithelial Cell Urine 0-2 /HPF (0-2); WBC Urine 0-5 /HPF (0-5)
--- NOTE | 2022-12-06 09:52 | P.PNOP_ITS ---
Subjective Subjective Date of Service: 12/06/22 Interval history: PoD 5 s/p right knee arthroscopic irrigation, debridement, and lavage. Patient resting in bed No overnight events. He feels his pain is getting worse and has more swelling Physical Exam Vital Signs: Vital Signs: Last Vital Signs Temp 97 F 12/06/22 07:23 Pulse 83 12/06/22 07:23 Resp 16 12/06/22 07:23 BP 145/71 H 12/06/22 07:23 Pulse Ox 98 12/06/22 07:23 O2 Del Method Room Air 12/06/22 07:23 O2 Flow Rate 2 12/01/22 10:30 BMI result Body Mass Index 28.7 Const: General: cooperative, healthy appearing and no acute distress Resp: Effort & Inspection: normal respiratory effort and able to speak in complete sentences Cardio: Rate: regular rate Peripheral pulses: Peripheral pulses 2+ t hroughout GI: Palpation (GI): Soft to palpation Skin: Lesions: no lesions Rashes: no rashes Extrem: Other: Right knee dressings are c/d/i. Able to slightly flex and extend with moderate joint effusion Procedures Date of Service Date of Service: 12/06/22 Progress Note: A&P Assessment and plan (1) Septic joint of right knee joint: Status: Acute Assessment and Plan: We discussed options today which include repeat washout. I explained the procedure in detail along with the length of recovery and rehab course. I explained the risk, benefits and alternatives. Risk including, but not limited to infection, blood clots, bleeding, ongoing pain and stiffness. I answered all their questions and with their understanding they have consented to move forward with right knee arthroscopic lavage with Dr Oropeza. The patient will be booked accordingly. Time Spent With Patient Time: Total time managing care of this patient today ____ minutes. Quality Stroke Does the patient have a stroke diagnosis?: No VTE Prior VTE?: No VTE Risk Level:: Medical - moderate - high VTE Device Contraindication: N/A - Device Ordered VTE Drug Contraindication: N/A - Med Ordered
--- NOTE | 2022-12-06 12:49 | HO.PICC ---
PICC Line Insertion NPICC INSERTION Diagnosis: MRSA BACTEREMIA RIGHT KNEE Indication: EGYPTOLOGIST ANTIBX Pertinent Labs: REVIEWED Technique: Following informed consent including risks, benefits and alternatives and using sterile technique including cap and mask, sterile gown, glove and drape, the RIGHT arm was prepped and draped in the usual sterile fashion of full barrier technique with G. Following completion of [place] Protocol the skin and soft tissues were anesthetized with 1% Lidocaine plain. Using ultrasound guidance, RIGHT BASILIC vein access BUT UNABLE TO PASS GUIDEWIRE SO DR NARAYAN ACCESSED THE BASILIC VEIN. Over an 0.018 wire through peel-away sheath, a 4 FR SINGLE PASV PICC line was positioned. Catheter length is 47CM internal length, AT THE 0CM external NANCY, for a total trimmed length of 47CM. The procedure was performed in RM 272. Tip verification was performed by Sarah Herrera with Felecia 3CG. Tip located in SVC. Ultrasound was used to document vein patency and for needle entry. A formal ultrasound picture and cardiac rhythm strip was recorded. Vascular Pneumatic System Conveyor Operator has released the line for use and it is currently dressed with a StatLock, Tegaderm, and CHG disc. Verification has been performed for blood return and line patency. Arm Circumference: 31CM Equipment: [place] POWERPICC SOLO Catheter Type: 4 FR SINGLE PASV PICC LINE Lot #: [id number]
[2022-12-06] MEDS: 0.9 % Sodium Chloride Flush 10 ML SYRINGE 5 ML IVFLUSH ×2 (14:33→18:54)
--- NOTE | 2022-12-06 15:51 | MHC.CM.PN ---
PER EMR, PT WILL NEED 6 WEEKS OF IV DAPTO AT [place] CM MET WITH PT AND WHO REPORT THEY ARE ABLE TO MANAGE THIS AT HOME THEY ARE AWARE [facility] RN WILL REACH OUT TO ARRANGE TEACH ONCE INSURANCE IS RUN REFERRALS OUT TO [facility] AND JENNIFER MONZON
[2022-12-06 16:00] VITALS: BP 139/80; PULSE 93; RESP 20; TEMP 36.7; O2SAT 96
--- NOTE | 2022-12-06 16:36 | PM.PNORT ---
Subjective Subjective Date of Service: 12/08/22 Principal diagnosis: right septic knee Interval history: c/o pain Physical Exam Vital Signs: Vital Signs: Last Vital Signs Temp 98.1 F 12/06/22 16:00 Pulse 93 12/06/22 16:00 Resp 20 12/06/22 16:00 BP 139/80 12/06/22 16:00 Pulse Ox 96 12/06/22 16:00 O2 Del Method Room Air 12/06/22 16:00 O2 Flow Rate 2 12/01/22 10:30 BMI result Body Mass Index 28.7 Extrem: Other: large effusion right knee Procedures Date of Service Date of Service: 12/08/22 Progress Note: A&P Assessment and plan (1) Septic joint of right knee joint: Status: Acute Assessment and Plan: I aspirated serosanguinous fluid from right knee. Plan Continued swelling and pain. Will lavage and debride right knee tomorrow in OR Time Spent With Patient Time: Total time managing care of this patient today ____ minutes. Quality Stroke Does the patient have a stroke diagnosis?: No VTE Prior VTE?: No VTE Risk Level:: Medical - moderate - high VTE Device Contraindication: N/A - Device Ordered VTE Drug Contraindication: N/A - Med Ordered
[2022-12-06] MEDS: HYDROmorphone HCl 1 MG/ML SYRINGE IVPUSH ×2 (18:07→23:29)
[2022-12-06] MEDS: oxyCODONE HCl Immed Release 5 MG TABLET 10 MG PO (19:42)
[2022-12-06 20:00] VITALS: BP 134/69; PULSE 84; RESP 17; TEMP 36.6; O2SAT 95
[2022-12-06 20:54] LABS: Vancomycin Random 13.6 mcg/mL (15-20)
[2022-12-07] MEDS: oxyCODONE HCl Immed Release 5 MG TABLET 10 MG PO ×3 (03:13→18:24)
[2022-12-07 04:00] VITALS: BP 138/71; PULSE 90; RESP 16; TEMP 36.8; O2SAT 94
[2022-12-07] MEDS: HYDROmorphone HCl 1 MG/ML SYRINGE IVPUSH ×3 (05:26→22:12)
[2022-12-07] MEDS: vancomycin HCL 1,250 MG in 0.9 % Sodium Chloride 250 ML 166.67 MG IV (05:27)
[2022-12-07 06:40] LABS: Creatinine Clr Calc Pharmacy 121.3; Estimated Glomerular Filt Rate > 60
[2022-12-07 06:49] VITALS: BP 146/67; PULSE 87; RESP 16; TEMP 36.1; O2SAT 97
[2022-12-07] MEDS: oxyCODONE HCl ER 10 MG TAB.ER.12H PO ×2 (08:21→20:58)
[2022-12-07] MEDS: Celecoxib 200 MG CAPSULE PO ×2 (08:21→20:58)
[2022-12-07] MEDS: 0.9 % Sodium Chloride Flush 10 ML SYRINGE 5 ML IVFLUSH ×3 (08:22→20:57)
[2022-12-07] MEDS: 0.9 % Sodium Chloride Flush 3 ML SYRINGE IVFLUSH ×3 (08:22→22:12)
[2022-12-07] MEDS: Docusate Sodium 100 MG CAPSULE PO ×2 (08:22→20:58)
--- NOTE | 2022-12-07 09:32 | PM.EVENT ---
Event Note Date of Service: 12/07/22 Event Note: Right knee s/p aspiration -plan is to take the patient to OR today for repeat washout -NPO Time Spent With Patient Time: Total time managing care of this patient today ____ minutes.
--- NOTE | 2022-12-07 12:23 | HO.ANESPROP2 ---
HPI - Anesthesia Eval Consult details Narrative: 67 M right knee washout for septic knee MSSA PE ,DVT Eliquis , last dose yesterday AM [facility] Active Problems Active Problems: All Active Problems (Updated 12/03/22 @ 16:40 by Amy Garcia MD) Septic joint of right knee joint (Acute) MRSA bacteremia (Acute) Past Medical History Medical History (Updated 12/07/22 @ 12:33 by Kamryn Holt) Pulmonary embolism MRSA bacteremia Arthritis DVT of proximal leg (deep vein thrombosis) Family History Family history of problems with anesthesia: No Surgical History Surgical History (Updated 12/07/22 @ 12:20 by Kamryn Holt) History of appendectomy H/O knee surgery H/O right knee surgery History of Problems with Anesthesia: No Social History Social History Household Members: Spouse Housing: House Do you presently have visiting nurse or other home services: No Alcohol intake: former Patient Tobacco Use Status: Never used Tobacco Second Hand Smoke Exposure: No Substance Use Type: Marijuana service: No Meds Allergies Allergy/AdvReac Type Severity Reaction Status Date / Time No Known Allergies Allergy Verified 12/07/22 12:21 [No Known Allergies*] Active Medications: Current Medications Acetaminophen (Acetaminophen 325 Mg Tablet) 650 mg PO Q6H PRN PRN Reason: Pain, Mild (Pain Scale 1-3) Last Admin: 12/04/22 19:25 Dose: 650 mg Albuterol Sulfate (Albuterol Sulfate (0.083%) 2.5 Mg/3 Ml Vial.Neb) 2.5 mg INHALE ONCE PRN PRN Reason: Wheezing Apixaban (Apixaban 5 Mg Tablet) 5 mg PO BID [facility] Last Admin: 12/07/22 08:16 Dose: Not Given Celecoxib (Celecoxib 200 Mg Capsule) 200 mg PO BID [facility] Last Admin: 12/07/22 08:21 Dose: 200 mg Docusate Sodium (Docusate Sodium 100 Mg Capsule) 100 mg PO BID [facility] Last Admin: 12/07/22 08:22 Dose: 100 mg Hydromorphone HCl (Hydromorphone Hcl 1 Mg/Ml Syringe) 1 mg IVPUSH Q4H PRN; Protocol PRN Reason: Pain, Severe (Pain Scale 7-10) Last Admin: 12/07/22 05:26 Dose: 1 mg Vancomycin HCl 1,250 mg/ (Sodium Chloride) 250 mls @ 166.667 mls/hr IV Q8H [facility] Last Infusion: 12/07/22 06:58 Dose: Infused Ondansetron HCl (Ondansetron Hcl 4 Mg/2 Ml Vial) 4 mg IVPUSH Q8H PRN PRN Reason: Nausea and Vomiting Last Admin: 12/05/22 20:36 Dose: 4 mg Oxycodone HCl (Oxycodone Hcl Er 10 Mg Tab.Er.12h) 10 mg PO BID [facility] Last Admin: 12/07/22 08:21 Dose: 10 mg Oxycodone HCl (Oxycodone Hcl Immed Release 5 Mg Tablet) 10 mg PO Q4H PRN PRN Reason: Pain, Moderate(Pain Scale 4-6) Last Admin: 12/07/22 08:21 Dose: 10 mg Pharmacy Consult (Consult Rx Vancomycin Dosing) 1 each MISCELLANE DAILY PRN PRN Reason: Consult order Sodium Chloride (0.9 % Sodium Chloride Flush 3 Ml Syringe) 3 ml IVFLUSH QSHIFT [facility] Last Admin: 12/07/22 08:22 Dose: 3 ml Sodium Chloride (0.9 % Sodium Chloride Flush 10 Ml Syringe) 5 ml IVFLUSH TID [facility] Last Admin: 12/07/22 08:22 Dose: 5 ml Home Medications Medication Instructions Recorded Confirmed Last Taken Type acetaminophen 500 mg tablet 1,000 mg PO Q8H 12/01/22 12/01/22 11/30/22 History apixaban 5 mg (74 tabs) tablets in 10 mg PO DIRECTED 12/01/22 12/01/22 11/30/22 History a dose pack (Eliquis DVT-PE Treat 10 mg 30D Start) clobetasol 0.05 % topical ointment 1 appl topical DAILY PRN Rash 12/01/22 12/01/22 11/30/22 History etanercept 50 mg/mL (1 mL) 50 mg subcut Q28D PRN arthritis 12/01/22 12/01/22 11/30/22 History subcutaneous pen injector (Enbrel flare SureClick) ondansetron HCl 4 mg tablet 4 mg PO Q8H PRN nausea 12/01/22 12/01/22 11/30/22 History oxycodone 5 mg tablet 5 - 10 mg PO Q4H PRN pain 12/01/22 12/01/22 11/30/22 History Exam Exam Date and Time: December 07, 2022 1223 Height,Weight and Vital Signs: Height 6 ft Weight 95.9 kg Last Vital Signs Temp 97 F 12/07/22 06:49 Pulse 87 12/07/22 06:49 Resp 16 12/07/22 06:49 BP 146/67 H 12/07/22 06:49 Pulse Ox 97 12/07/22 06:49 O2 Del Method Room Air 12/07/22 06:49 O2 Flow Rate 2 12/01/22 10:30 Pertinent Lab Results Pertinent Lab Results: Laboratory Tests 11/30/22 11/30/22 12/01/22 21:23 21:24 00:39 WBC 11.4 H RBC 4.85 Hgb 14.6 Hct 42.6 MCV 87.8 MCH 30.1 MCHC 34.3 RDW 12.7 Plt Count 204 D MPV 9.8 Immature Gran % (Auto) 0.5 H Neut % (Auto) 85.0 H Lymph % (Auto) 2.6 L [place] % (Auto) 11.5 H Eos % (Auto) 0.1 Baso % (Auto) 0.3 Lymph # (Auto) 0.3 L [place] # (Auto) 1.3 H Eos # (Auto) 0.0 Baso # (Auto) 0.0 Abs Immat Gran (auto) 0.06 H Absolute Neuts (auto) 9.7 H Absolute Nucleated RBC 0.000 Nucleated RBC % (auto) 0.0 ESR 59 H PT 23.3 H INR 1.9 H APTT 34.6 Sodium 135 Potassium 4.1 Chloride 102 Carbon Dioxide 24 Anion Gap 13 BUN 13 Creatinine 0.77 Estim Creat Clear Calc 100.7 Estimated GFR > 60 Random Glucose 116 H Lactic Acid 1.2 Calcium 10.0 C-Reactive Protein 29.08 H Urine Color Urine Appearance Urine pH Ur Specific [place] Urine Protein Urine Glucose (UA) Urine Ketones Urine Blood Urine Nitrite Ur Leukocyte Esterase Urine RBC Urine WBC Ur Squamous Epith Cells Urine Bacteria Hyaline Casts Synovial Source RIght knee Synovial WBC 121.806 Synovial RBC 0.218 Synovial Neutrophils 99 Synovial Monocytes 1 Synovial Glucose < 2 Synovial Total Protein 4.6 Vancomycin Trough Random Vancomycin COVID-19 (SHAMIR) Negative COVID-19 Clin Com See Note 12/01/22 12/02/22 12/02/22 11:33 05:51 11:08 WBC RBC Hgb Hct MCV MCH MCHC RDW Plt Count MPV Immature Gran % (Auto) Neut % (Auto) Lymph % (Auto) [place] % (Auto) Eos % (Auto) Baso % (Auto) Lymph # (Auto) [place] # (Auto) Eos # (Auto) Baso # (Auto) Abs Immat Gran (auto) Absolute Neuts (auto) Absolute Nucleated RBC Nucleated RBC % (auto) ESR PT INR APTT Sodium Potassium Chloride Carbon Dioxide Anion Gap BUN Creatinine 0.81 0.76 Estim Creat Clear Calc 95.8 111.7 Estimated GFR > 60 > 60 Random Glucose Lactic Acid Calcium C-Reactive Protein Urine Color Urine Appearance Urine pH Ur Specific [place] Urine Protein Urine Glucose (UA) Urine Ketones Urine Blood Urine Nitrite Ur Leukocyte Esterase Urine RBC Urine WBC Ur Squamous Epith Cells Urine Bacteria Hyaline Casts Synovial Source Synovial WBC Synovial RBC Synovial Neutrophils Synovial Monocytes Synovial Glucose Synovial Total Protein Vancomycin Trough Random Vancomycin 6.1 L COVID-19 (SHAMIR) COVID-19 [employer] 12/03/22 12/03/22 12/03/22 06:03 10:41 13:45 WBC RBC Hgb Hct MCV MCH MCHC RDW Plt Count MPV Immature Gran % (Auto) Neut % (Auto) Lymph % (Auto) [place] % (Auto) Eos % (Auto) Baso % (Auto) Lymph # (Auto) [place] # (Auto) Eos # (Auto) Baso # (Auto) Abs Immat Gran (auto) Absolute Neuts (auto) Absolute Nucleated RBC Nucleated RBC % (auto) ESR 88 H PT INR APTT Sodium Potassium Chloride Carbon Dioxide Anion Gap BUN Creatinine 0.80 Estim Creat Clear Calc 106.1 Estimated GFR > 60 Random Glucose Lactic Acid Calcium C-Reactive Protein 34.70 H Urine Color Urine Appearance Urine pH Ur Specific [place] Urine Protein Urine Glucose (UA) Urine Ketones Urine Blood Urine Nitrite Ur Leukocyte Esterase Urine RBC Urine WBC Ur Squamous Epith Cells Urine Bacteria Hyaline Casts Synovial Source Synovial WBC Synovial RBC Synovial Neutrophils Synovial Monocytes Synovial Glucose Synovial Total Protein Vancomycin Trough 9.5 L Random Vancomycin COVID-19 (SHAMIR) COVID-19 Clin Com 12/04/22 12/04/22 12/04/22 05:38 20:53 22:50 WBC 6.6 RBC 3.80 L D Hgb 11.3 L D Hct 33.6 L D MCV 88.4 MCH 29.7 MCHC 33.6 RDW 13.4 Plt Count 262 D MPV 9.3 L Immature Gran % (Auto) 1.2 H Neut % (Auto) 73.4 H Lymph % (Auto) 8.0 L [place] % (Auto) 16.0 H Eos % (Auto) 0.9 Baso % (Auto) 0.5 Lymph # (Auto) 0.5 L [place] # (Auto) 1.1 Eos # (Auto) 0.1 Baso # (Auto) 0.0 Abs Immat Gran (auto) 0.08 H Absolute Neuts (auto) 4.9 Absolute Nucleated RBC 0.000 Nucleated RBC % (auto) 0.0 ESR PT INR APTT Sodium Potassium Chloride Carbon Dioxide Anion Gap BUN Creatinine 0.72 Estim Creat Clear Calc 117.9 Estimated GFR > 60 Random Glucose Lactic Acid Calcium C-Reactive Protein Urine Color Urine Appearance Urine pH Ur Specific [place] Urine Protein Urine Glucose (UA) Urine Ketones Urine Blood Urine Nitrite Ur Leukocyte Esterase Urine RBC Urine WBC Ur Squamous Epith Cells Urine Bacteria Hyaline Casts Synovial Source Synovial WBC Synovial RBC Synovial Neutrophils Synovial Monocytes Synovial Glucose Synovial Total Protein Vancomycin Trough Random Vancomycin 17.3 COVID-19 (SHAMIR) COVID-19 Clin Com 12/05/22 12/05/22 12/06/22 05:13 21:03 05:33 WBC 7.0 RBC 3.73 L Hgb 10.9 L Hct 32.8 L MCV 87.9 MCH 29.2 MCHC 33.2 RDW 13.7 Plt Count 327 MPV 9.5 Immature Gran % (Auto) Neut % (Auto) Lymph % (Auto) [place] % (Auto) Eos % (Auto) Baso % (Auto) Lymph # (Auto) [place] # (Auto) Eos # (Auto) Baso # (Auto) Abs Immat Gran (auto) Absolute Neuts (auto) Absolute Nucleated RBC 0.000 Nucleated RBC % (auto) 0.0 ESR PT 15.7 H D INR 1.3 H APTT Sodium Potassium Chloride Carbon Dioxide Anion Gap BUN Creatinine 0.62 0.71 Estim Creat Clear Calc 136.9 119.6 Estimated GFR > 60 > 60 Random Glucose Lactic Acid Calcium C-Reactive Protein Urine Color Urine Appearance Urine pH Ur Specific [place] Urine Protein Urine Glucose (UA) Urine Ketones Urine Blood Urine Nitrite Ur Leukocyte Esterase Urine RBC Urine WBC Ur Squamous Epith Cells Urine Bacteria Hyaline Casts Synovial Source Synovial WBC Synovial RBC Synovial Neutrophils Synovial Monocytes Synovial Glucose Synovial Total Protein Vancomycin Trough Random Vancomycin 11.3 L COVID-19 (SHAMIR) COVID-19 Clin Com 12/06/22 12/06/22 12/07/22 08:00 20:28 05:39 WBC RBC Hgb Hct MCV MCH MCHC RDW Plt Count MPV Immature Gran % (Auto) Neut % (Auto) Lymph % (Auto) [place] % (Auto) Eos % (Auto) Baso % (Auto) Lymph # (Auto) [place] # (Auto) Eos # (Auto) Baso # (Auto) Abs Immat Gran (auto) Absolute Neuts (auto) Absolute Nucleated RBC Nucleated RBC % (auto) ESR PT INR APTT Sodium Potassium Chloride Carbon Dioxide Anion Gap BUN Creatinine 0.70 Estim Creat Clear Calc 121.3 Estimated GFR > 60 Random Glucose Lactic Acid Calcium C-Reactive Protein Urine Color Yellow Urine Appearance Clear Urine pH 6.5 Ur Specific [place] 1.015 Urine Protein 30 (1+) H Urine Glucose (UA) Negative Urine Ketones 15 Urine Blood Negative Urine Nitrite Negative Ur Leukocyte Esterase Negative Urine RBC 0-2 Urine WBC 0-5 Ur Squamous Epith Cells 0-2 Urine Bacteria None Seen Hyaline Casts 0-2 Synovial Source Synovial WBC Synovial RBC Synovial Neutrophils Synovial Monocytes Synovial Glucose Synovial Total Protein Vancomycin Trough Random Vancomycin 13.6 L COVID-19 (SHAMIR) COVID-19 Clin Com Airway Mallampati Class: III Loose/Missing/Broken Teeth: Yes (poor dentition , chipped multiple ) Assessment and Plan Assessment Anesthesia Assessment: Anesthesia Plan Discussed and Chart Reviewed Final Anesthetic Review Family History of Problems with Anesthesia: No History of Problems with Anesthesia: No NPO: Yes ASA Class: III and Emergency Final Preanesthetic Review: Meds/Allgs Chart Reviewed, Consent Obtained/Reviewed and Anes Risks/Benef Reviewed Patient Risk: Intermediate Procedure Risk: Intermediate Anesthetic Plan Anesthetic Plan: GA and Agree w/ Assess. and Plan Disposition: Standard PACU
[2022-12-07 12:28] VITALS: BP 138/83; PULSE 82; RESP 16; TEMP 37.8; O2SAT 98
--- NOTE | 2022-12-07 12:36 | PC.NURSE ---
Patient arrived to [facility]. Single lumen PICC line in right upper arm asymptomatic, flushed well.
--- NOTE | 2022-12-07 14:17 | P.BOP_ITS ---
Brief Operative Note Date of Service: 12/07/22 Pre-op diagnosis: Septic right knee Post-op diagnosis: same Procedure: Arthroscopic irrigation and debridement right knee Surgeon: Cristi Oropeza MD Anesthesia: GETA and local Was an Triple Drum Operator used for this Procedure?: No Estimated blood loss (mL): 5 Tourniquet time (min): 25 Pathology: none sent Condition: stable Disposition: PACU
[2022-12-07] MEDS: vancomycin HCL 1,250 MG in 0.9 % Sodium Chloride 250 ML 166.66 MG IV (15:15)
--- NOTE | 2022-12-07 15:24 | PM.EVENT ---
Event Note Date of Service: 12/07/22 Event Note: 6 weeks IV Daptomycin 6-8 mg/kg every 24 hours and then po Doxycycline 1-2 months. Time Spent With Patient Time: Total time managing care of this patient today ____ minutes.
[2022-12-07 15:42] VITALS: BP 145/78; PULSE 73; RESP 18; TEMP 36.1; O2SAT 94
[2022-12-07 19:23] VITALS: BP 134/72; PULSE 93; RESP 18; TEMP 36.3; O2SAT 97
[2022-12-08] MEDS: oxyCODONE HCl Immed Release 5 MG TABLET 10 MG PO ×3 (00:50→14:11)
[2022-12-08] MEDS: HYDROmorphone HCl 1 MG/ML SYRINGE IVPUSH ×3 (02:31→17:24)
[2022-12-08 06:51] LABS: Creatinine Clr Calc Pharmacy 113.2; Estimated Glomerular Filt Rate > 60
[2022-12-08 06:54] VITALS: BP 125/69; PULSE 91; RESP 16; TEMP 36.6; O2SAT 95
--- NOTE | 2022-12-08 07:45 | PM.PNORT ---
Subjective Subjective Date of Service: 12/08/22 Principal diagnosis: right septic knee Interval history: Feeling well overnight Physical Exam Vital Signs: Vital Signs: Last Vital Signs Temp 97.8 F 12/08/22 06:54 Pulse 91 12/08/22 06:54 Resp 16 12/08/22 06:54 BP 125/69 12/08/22 06:54 Pulse Ox 95 12/08/22 06:54 O2 Del Method Room Air 12/08/22 06:54 O2 Flow Rate 2 12/01/22 10:30 BMI result Body Mass Index 28.7 Extrem: Other: inc c/d/i mild effusion quad firing Procedures Date of Service Date of Service: 12/08/22 Progress Note: A&P Assessment and plan (1) Septic joint of right knee joint: Status: Acute Assessment and Plan: Doing well s/p 2nd washout for septic right knee Underlying severe OA May d/c home today Will contact me if worsens Cont iv abx f/u 7-10 days Hold thinners until tomorrow Time Spent With Patient Time: Total time managing care of this patient today _10___ minutes. Quality Stroke Does the patient have a stroke diagnosis?: No VTE Prior VTE?: No VTE Risk Level:: Medical - moderate - high VTE Device Contraindication: N/A - Device Ordered VTE Drug Contraindication: N/A - Med Ordered
[2022-12-08] MEDS: Celecoxib 200 MG CAPSULE PO (08:12)
[2022-12-08] MEDS: 0.9 % Sodium Chloride Flush 10 ML SYRINGE 5 ML IVFLUSH ×3 (08:12→16:21)
[2022-12-08] MEDS: Docusate Sodium 100 MG CAPSULE PO (08:12)
[2022-12-08] MEDS: 0.9 % Sodium Chloride Flush 3 ML SYRINGE IVFLUSH (08:12)
[2022-12-08] MEDS: oxyCODONE HCl ER 10 MG TAB.ER.12H PO (08:12)
--- NOTE | 2022-12-08 08:48 | PM.DS ---
DS: Providers Provider Date of Service: 12/08/22 Date of admission: 12/01/22 02:23 Primary care physician: Gonzalo Chaidez MD Consults: 12/01/22 02:23 Consult to Hospitalist Routine Comment: Consulting Provider: Hospitalist Reason For Exam: routine medical management 12/02/22 12:56 Consult to Infectious Diseases Routine Consulting Provider: [facility] [place] Disease Reason for consultation: knee aspirate / blood cx staph aureus 12/04/22 21:40 Consult to Hospitalist Routine Comment: Consulting Provider: Hospitalist Reason For Exam: RLE swelling-eliquis use, current DVT 12/07/22 15:36 Consult to Infectious Diseases Routine Consulting Provider: Amy Garcia Reason for consultation: Dapto consult - event note added DS: Diagnosis Discharge Diagnosis (1) Septic joint of right knee joint: Status: Acute DS: Summary Hospital Course Hospital Course: The patient underwent a successful Arthroscopic lavage of the right knee x2 12/01/22 and 12/07/22, was transferred to PACU and then to the floor to recover. During their stay, their vitals were stable, afebrile at 97.8. Labs were unremarkable, H/H 10.9/32.8. Blood Cx from 11/30/22 initially grew our MRSA Synovial joint fluid cultures from 12/01/22 grew out MRSA The patient was started on IV Vancomycin Repeat blood cultures performed on 12/03/22 were negative ECHO performed on 12/03/22 showed no evidence of vegetation Picc line was placed on 12/06/22: PICC Line Insertion NPICC INSERTION Diagnosis: MRSA BACTEREMIA RIGHT KNEE Indication: PROFESSIONAL SHOPPER ANTIBX Pertinent Labs: REVIEWED Technique: Following informed consent including risks, benefits and alternatives and using sterile technique including cap and mask, sterile gown, glove and drape, the RIGHT arm was prepped and draped in the usual sterile fashion of full barrier technique with [facility]. Following completion of [place] Protocol the skin and soft tissues were anesthetized with 1% Lidocaine plain. Using ultrasound guidance, RIGHT BASILIC vein access BUT UNABLE TO PASS GUIDEWIRE SO DR NARAYAN ACCESSED THE BASILIC VEIN. Over an 0.018 wire through peel-away sheath, a 4 FR SINGLE PASV PICC line was positioned. Catheter length is 47CM internal length, AT THE 0CM external NANCY, for a total trimmed length of 47CM. The procedure was performed in RM 272. Tip verification was performed by Sarah Herrera with [place] 3CG. Tip located in SVC. Ultrasound was used to document vein patency and for needle entry. A formal ultrasound picture and cardiac rhythm strip was recorded. Vascular Camera Supervisor has released the line for use and it is currently dressed with a StatLock, Tegaderm, and CHG disc. Verification has been performed for blood return and line patency. Arm Circumference: 31CM Equipment: [place] POWERPICC SOLO Catheter Type: 4 FR SINGLE PASV PICC LINE Lot #: [id number] weekly BUN/creatinine Flush PICC line with 10 cc of normal saline 3 times a day Routine discharge flushing with 10 mL of normal saline after blood specimen withdrawal, medication administration or post transfusion flushing Physical therapy should include gait training, ROM to tolerance and quad strength. He is WBAT. Infectious disease abx recommendations: 6 weeks IV Daptomycin 6-8 mg/kg every 24 hours and then po Doxycycline 1-2 months. The plan is to be discharged home with VNA services Time Spent with Patient Time attestation: Total time managing care of this patient today ____ minutes. Discharge coordination time: Less than 30 minutes Quality: Safe Use of Opioids Does Pt have an Active Cancer Diagnosis on the Problem List?: No Quality: Stroke Does the patient have a stroke diagnosis?: No Physical Exam Vital Signs: Vital Signs: Last Vital Signs Temp 97.8 F 12/08/22 06:54 Pulse 91 12/08/22 06:54 Resp 16 12/08/22 06:54 BP 125/69 12/08/22 06:54 Pulse Ox 95 12/08/22 06:54 O2 Del Method Room Air 12/08/22 06:54 O2 Flow Rate 2 12/01/22 10:30 BMI result Body Mass Index 28.7 Extrem: Other: inc c/d/i mild effusion quad firing DS: Data Data Completed and Pending Labs on day of discharge: Laboratory Results - last 24 hr 12/08/22 06:15 Creatinine 0.75 Estim Creat Clear Calc 113.2 Estimated GFR > 60 Preliminary micro results at discharge 12/03/22 13:45 Blood Culture - Preliminary Blood - Venous No growth after 48 hours. 12/03/22 13:45 Blood Culture - Preliminary Blood - Venous No growth after 48 hours. Discharge Plan Discharge Anticipated Discharge Date/Time: 12/08/22 08:42 Patient Disposition: Home Health Service Discharge Diagnosis: s/p right knee washout Referrals: Gonzalo Chaidez MD [Primary Care Provider] - 1 Week Nelda Gamez PA-C [Physician Sow Farm Technician] - 1 Week (12/16/22 13:30 [facility] [place] [facility]geons Nelda Gaemz PA-C) Discharge Medications: New docusate sodium 100 mg Capsule 100 mg PO BID 14 Days Qty: 28 0RF oxycodone 10 mg tablet 10 mg PO Q4H PRN (Reason: Pain, Moderate(Pain Scale 4-6)) 7 Days Qty: 42 0RF Rx Instructions: Partial Fill upon patient request. celecoxib 200 mg Capsule 200 mg PO BID 30 Days Qty: 60 0RF acetaminophen 325 mg Tablet 650 mg PO Q6H PRN (Reason: Pain, Mild (Pain Scale 1-3)) 30 Days Qty: 240 0RF daptomycin 500 mg Recon Soln 770 mg IV Q24H 42 Days Qty: 42 0RF Continued Enbrel SureClick 50 mg/mL (1 mL) pen injector 50 mg subcut Q28D PRN (Reason: arthritis flare) ondansetron HCl 4 mg tablet 4 mg PO Q8H PRN (Reason: nausea) acetaminophen 500 mg tablet 1,000 mg PO Q8H clobetasol 0.05 % ointment 1 appl topical DAILY PRN (Reason: Rash) Held Eliquis DVT-PE Treat 30D Start 5 mg (74 tabs) tablets,dose pack 10 mg PO DIRECTED Hold Instructions: Resume on 12/09/22. Rx Instructions: 10mg BID x 7 days, then 5mg BID thereafter, START ON Tuesday11/27/22 Discontinued oxycodone 5 mg tablet 5 - 10 mg PO Q4H PRN (Reason: pain) Discharge Orders: Discharge Order (Routine); Ordered 12/08/22 Ordered By: Willy Perrin Diet: Regular diet Activity on Discharge: Walk with crutches Stand Alone Forms: Patient Portal Discharge page Care Plan Goals: Restore function of joint Health Concerns: None Plan of Treatment: -Resume Eliquis 12/09/22 -Weight bear as tolerated -Elevate above heart level to help reduce swelling -Perform ankle pumps to help circulation in the leg -Ice the knee throughout the day for the next 72 hours -Keep the dressing clean , dry and intact. -Ok to remove the Noel wrap and apply bandaids over the incisions after 3 days -Follow up with Orthopedics on 12/16/22 13:30 [facility] [place] [facility] Sur[facility] Nelda Gamez PA-C Assessment: as above Patient Instructions: Septic Arthritis (DC)
--- NOTE | 2022-12-08 10:52 | HO.POSTANES ---
Post Anesthesia Evaluation Post Anesthesia Evaluation Date of Service: 12/08/22 Vital Signs: Vital Signs Temp Pulse Resp BP Pulse Ox O2 Del Method 12/08/22 06:54 97.8 F 91 16 125/69 95 Room Air Anesthesia: General Mental Status: Awake Pain Control: Satisfactory Nausea/Vomiting: None Hydration: Adequate Anesthesia-Related Issues: No Anes. Related Issues
--- NOTE | 2022-12-08 10:56 | P.F2F_ITS ---
Service Date Service Date: 12/08/22 Encounter Date of encounter: 12/08/22 Reasons for Services Signs and symptoms assessed: Right knee pain and swelling , difficulty with balance. Reason for jail: medication management Reason for physical therapy: home safety and mobility, therapeutic exercises, restore joint function, gait/transfer training, ADL training and energy conservation Reason for occupational therapy: home safety and mobility, therapeutic exercises, restore joint function, gait/transfer training, ADL training and energy conservation MD Overseeing Care: Cristi Oropeza Homebound: Leaving the home is medically contraindicated at this time without the asist of a device and/or another person due th the listed conditions above and below. Reason homebound: unsteady gait / fall risk, pain with ambulation, pain with transfers, poor balance / fall risk and unable to drive Homebound supporting statement: Pt. is considered home bound due to recent surgery. Unable to drive, poor balance, poor gait mechanics. Patient receiving IV abx daptomycin x6 weeks Certification: Based on the above findings, I certify that this patient is confined to the home and needs intermittent jail care, physical therapy and/or speech therapy, or continues to need occupational therapy. The patient is under my care, and I have initiated the establishment of the plan of care. The patient will be followed by a physician who will periodically review the plan of care. Time Spent With Patient Time: Total time managing care of this patient today ____ minutes.
--- NOTE | 2022-12-08 13:33 | MHC.CM.PN ---
IMM 12/08/22 Patient is discharged to home with IV ABX. [facility] is providing medication + supplies. [facility] will provide lab draws, dressing changes and Medication management. The patient has arranged for transportation home.
[2022-12-08 15:40] VITALS: BP 132/69; PULSE 91; RESP 18; TEMP 36.5; O2SAT 93
--- NOTE | 2022-12-13 14:15 | P.OP_ITS ---
Operative Note Operative Note Date of Service: 12/01/22 Narrative: Date of Service: 12/01/22 Pre-op diagnosis: Septic right knee Procedure: Arthroscopic debridement and lavage right knee Implants: none Surgeon: Cristi Oropeza MD Anesthesia: GETA Was an Control System Computer Scientist used for this Procedure?: No Estimated blood loss (mL): 50 Tourniquet time (min): 15 IV fluids (mL): 600 Pathology: none sent Condition: stable Disposition: PACU Patient was brought to the operating room placed supine on the arthroscopic table and prepped and draped in standard sterile fashion. A time-out was called to identify proper site proper procedure proper surgeon and IV antibiotics per weight were administered. I began by exsanguinating the limb and insufflating tourniquet to 300 mm Hg. Then made a standard anterolateral stab incision. The knee was insufflated with water and 30 degree arthroscope was placed. There was abundant fibrinous material without any focal purulence. I placed a superolateral outlet protal and lavaged the superior pouch for at least 5 minutes. I descended into the tibiofemoral compartment and again lavaged for five minutes. Again no focal purulence was found. There was moderate to severe tricompartmental OA. I then removed all instrumentation and closed the portals with skin glue. 25 mL of 2% Marcaine with epinephrine was injected into the joint and the surrounding soft tissues. Patient was then placed in sterile dressing extubated brought recovery room stable condition. There were no known complications.
--- NOTE | 2022-12-13 14:19 | P.OP_ITS ---
Operative Note Operative Note Date of Service: 12/07/22 Narrative: Date of Service: 12/07/22 Pre-op diagnosis: Septic right knee Post-op diagnosis: same Procedure: Arthroscopic irrigation and debridement right knee Surgeon: Cristi Oropeza MD Anesthesia: GETA and local Was an Equestrian Trainer used for this Procedure?: No Estimated blood loss (mL): 5 Tourniquet time (min): 25 Pathology: none sent Condition: stable Disposition: PACU Patient was brought to the operating room placed supine on the arthroscopic table and prepped and draped in standard sterile fashion. A time-out was called to identify proper site proper procedure proper surgeon and IV antibiotics per weight were administered. I began by exsanguinating the limb and insufflating tourniquet to 300 mm Hg. Then made a standard anterolateral stab incision. The knee was insufflated with water and 30 degree arthroscope was placed. There was abundant fibrinous material without any focal purulence. I placed a superolateral outlet protal and lavaged the superior pouch for at least 5 minutes. I descended into the tibiofemoral compartment and again lavaged for five minutes. Again no focal purulence was found. There was moderate to severe tricompartmental OA. I used the cautery wand to cauterize bleeding tissue in all three comparments. I then removed all instrumentation and closed the portals with skin glue. 25 mL of 2% Marcaine with epinephrine was injected into the joint and the surrounding soft tissues. Patient was then placed in sterile dressing extubated brought recovery room stable condition. There were no known complications.
== END 2022-12-08 17:59 | disposition home health service (06) | DRG 863 ==
LOC: HO.ED 12-01 02:29 → HO.EDOVER 12-01 02:37 → HO.S3 12-01 06:42
PROVIDERS: Orthopaedic Surgery; Physician Assistant; Student in an Organized Health Care Education/Training Program; Admitting Provider Physician Assistant; Emergency Provider Emergency Medicine; PCP Family Medicine; Visit Provider Physician Assistant
PROC: 3E1U48Z Irrigation of Joints using Irrigating Substance, Percutaneous Endoscopic Approach (ICD-10-PCS; CPT 29870; principal; 2022-12-01 07:30)
PROC: 02HV33Z Insertion of Infusion Device into Superior Vena Cava, Percutaneous Approach (ICD-10-PCS; principal; 2022-12-06 11:00)
DX: T81.42XA Infection following a procedure, deep incisional surgical site, initial encounter (principal); M00.061 Staphylococcal arthritis, right knee; R78.81 Bacteremia; B95.62 Methicillin resistant Staphylococcus aureus infection as the cause of diseases classified elsewhere; Y83.8 Other surgical procedures as the cause of abnormal reaction of the patient, or of later complication, without mention of misadventure at the time of the procedure
CPT/HCPCS: 36415; 36573; 73562; 73700; 80048; 80202; 81001; 82550; 82565; 82945; 83605; 84157; 85025; 85027; 85610; 85652; 85730; 86140; 87040; 87070; 87073; 87077; 87186; 87205; 87635; 89051; 89060; 93306; 93971; 97110; 97116; 97161; 99285; C1751; J0131; J0690; J0878; J1170; J2250; J2270; J2405; J2795; J3010; J3370; J3371; Q9957

== ENCOUNTER 2022-12-01 02:23 | Outpatient (BNV) | payer MEDICARE, SELFPAY | END 2022-12-03 07:00 | PROVIDERS: Admitting Provider Physician Assistant; Emergency Provider Emergency Medicine; PCP Family Medicine; Visit Provider Internal Medicine | DX: I34.81 Nonrheumatic mitral (valve) annulus calcification (principal); I35.1 Nonrheumatic aortic (valve) insufficiency | CPT/HCPCS: 93306 ==

== ENCOUNTER → 2022-12-01 02:23 | Outpatient (BNV) | payer MEDICARE, SELFPAY | PROVIDERS: Admitting Provider Physician Assistant; Emergency Provider Emergency Medicine; PCP Family Medicine; Visit Provider Orthopaedic Surgery | DX: M00.9 Pyogenic arthritis, unspecified (principal) | CPT/HCPCS: 29871; 99024; 99221 ==

== ENCOUNTER → 2022-12-01 02:23 | Outpatient (BNV) | payer MEDICARE, SELFPAY | PROVIDERS: Admitting Provider Physician Assistant; Emergency Provider Emergency Medicine; PCP Family Medicine; Visit Provider Internal Medicine | DX: R78.81 Bacteremia (principal); B95.62 Methicillin resistant Staphylococcus aureus infection as the cause of diseases classified elsewhere; M00.9 Pyogenic arthritis, unspecified | CPT/HCPCS: 99222; 99499 ==

== ENCOUNTER → 2022-12-01 02:23 | Outpatient (BNV) | payer MEDICARE, SELFPAY | PROVIDERS: Admitting Provider Physician Assistant; Emergency Provider Emergency Medicine; PCP Family Medicine; Visit Provider Internal Medicine | DX: M00.9 Pyogenic arthritis, unspecified (principal); R78.81 Bacteremia; B95.62 Methicillin resistant Staphylococcus aureus infection as the cause of diseases classified elsewhere | CPT/HCPCS: 99222; 99232; 99499 ==

== ENCOUNTER 2022-12-16 13:42 | Outpatient (AMB) | payer MEDICARE, SELFPAY ==
--- NOTE | 2022-12-16 13:44 | MHC.OFFVIS ---
Intake Intake Visit Reasons: P.O- s/p I&D left knee 12/07/22 Intake Note: Caleb 67 yr old male presents today for his P/O visit kfor his I&D of left knee from 12/07/22. States swelling has improved, however he is still having pain 8/10 with prolong laying and after exercising. Allergies No Known Allergies [No Known Allergies*] Allergy (Verified 12/16/22 13:48) HPI P.O- s/p I&D left knee 12/07/22 HPI Details Caleb is a 67 year old man who presents S/P right knee x2, DOS: 12/01/22 & 12/07/22. This was due to an infection S/P knee in [place], DOS: 11/23/22. He says he is feeling much better in regards to his infection. He continues to have pain in his knee which worsens after prolonged laying or exercise. He has just started PT recently, which he finds difficult. Prior to this surgery he had knee stiffness, and his knee continues to be stiff. He says he is taking 40-50mg of Oxycodone daily for his knee pain, but would like to reduce his usage. He walks using crutches and is on IV Abx He is on Eliquis for another month due to a hx of pulmonary embolism in the past. [facility] Medical History (Updated 12/16/22 @ 00:04 by Stacie Praikh) Pulmonary embolism MRSA bacteremia Arthritis DVT of proximal leg (deep vein thrombosis) Surgical History (Updated 12/07/22 @ 12:20 by Kamryn Holt) History of appendectomy H/O knee surgery H/O right knee surgery Social History Household Members: Spouse Housing: House Do you presently have visiting nurse or other home services: No Alcohol intake: former Patient Tobacco Use Status: Never used Tobacco Second Hand Smoke Exposure: No Substance Use Type: Marijuana service: No Review of Systems Const All systems reviewed & are unremarkable except as noted in HPI and below Physical Exam Const General: no acute distress, alert and awake Orientation/consciousness: patient oriented x3 HEENT Head: Yes normocephalic and Yes atraumatic Eyes EOM: EOMs intact bilaterally Resp Effort & Inspection: normal respiratory effort and able to speak in complete sentences Cardio Jugular venous distension: no JVD Skin General skin exam: turgor normal Rashes: no rashes Neuro General: patient oriented x3 Extrem Other: Right Knee: Portals C/D/I Moderate swelling 5-90 degrees ROM No evidence of active infection Psych Appearance: grossly normal Affect: normal affect Attitude: cooperative Assessment & Plan Assessment & Plan (1) Septic joint of right knee joint: Code(s): M00.9 - Pyogenic arthritis, unspecified Plan: This is a 67 year old man S/P right knee lavage X2, DOS: 12/01/22 & 12/07/22. He continues to have pain with use of his knee, worse after prolonged laying or exercise, and he ambulates using crutches. He denies any fevers or chills, remains on his IV Abx, and is happy that his infection is improving. He is heavily using his prescription Oxycodone, he says 40-50mg daily. He would like to reduce his usage. I ordered a new course of tapering Oxycodone, 5mg Q4H reducing every week, along with Celebrex BID. He should ice his knee frequently and continue to attend PT. He will follow up in 4 weeks, his goal is to reduce or stop his Oxycodone usage by that appointment. (2) MRSA bacteremia: Code(s): R78.81 - Bacteremia; B95.62 - Methicillin resistant Staphylococcus aureus infection as the cause of diseases classified elsewhere Plan Scribed for Cristi Oropeza MD by Osvaldo Nowak, dental assistant medical assistant, on 12/16/22 at 2:00 PM, EST. Medications: New oxycodone Partial Fill upon patient request. 5 mg PO Q4H PRN 42 tabs 0RF pain 7 days Coding Level of Care Code Global (93909) Diagnoses Septic joint of right knee joint M00.9 MRSA bacteremia R78.81; B95.62
== END 2022-12-16 14:44 | disposition home or self-care (01) ==
PROVIDERS: PCP Family Medicine; Visit Provider Orthopaedic Surgery
DX: M00.9 Pyogenic arthritis, unspecified (principal); R78.81 Bacteremia; B95.62 Methicillin resistant Staphylococcus aureus infection as the cause of diseases classified elsewhere
CPT/HCPCS: 99024

== ENCOUNTER → 2022-12-16 13:42 | Outpatient (BNVA) | payer MEDICARE, SELFPAY | PROVIDERS: PCP Family Medicine; Visit Provider Orthopaedic Surgery ==

== ENCOUNTER 2022-12-16 16:58 | Outpatient (REF) | payer MEDICARE, SELFPAY ==
[2022-12-16 17:03] LABS: MANUAL DIFF FLAG NO
[2022-12-16 17:18] LABS: Basophils Absolute Auto 0.1 X10*3/uL (0.0-0.2); Basophils Percent Auto 0.9 % (0-2); Eosinophils Absolute Auto 0.1 X10*3/uL (0.0-0.4); Eosinophils Percent Auto 0.9 % (0-4); Hematocrit 36.2 % (42.0-52.0); Imm Gran Pct Auto 1.2 % (0.0-0.4); Lymphocytes Absolute Auto 1.1 X10*3/uL (1.2-4.9); Lymphocytes Percent Auto 13.2 % (20-40); Mean Corpuscular HGB Conc 33.1 g/dl (31.0-36.0); Mean Corpuscular Hemoglobin 29.3 pg (27.0-33.0); Mean Corpuscular Volume 88.5 fL (80.0-98.0); Mean Platelet Volume 10.2 fL (9.4-12.4); Monocytes Absolute Auto 0.8 X10*3/uL (0.1-1.2); Monocytes Percent Auto 9.9 % (2-11); Neutrophils Absolute Auto 6.1 x10*3/uL (2.0-8.3); Neutrophils Percent Auto 73.9 % (45-73); Platelet Count 702 X10*3/uL (160-400); Red Blood Count 4.09 X10*6/uL (4.60-5.80); Red Cell Distribution Width 12.3 % (11.0-16.0); White Blood Count 8.2 X10*3/uL (4.8-10.8)
[2022-12-16 18:08] LABS: Blood Urea Nitrogen 19 mg/dL (9-16); Estimated Glomerular Filt Rate > 60
== END 2022-12-16 16:59 | disposition home or self-care (01) ==
LOC: HO.HVNA 16:58
PROVIDERS: Visit Provider Internal Medicine
DX: M00.9 Pyogenic arthritis, unspecified (principal)
CPT/HCPCS: 36415; 82550; 82565; 84520; 85025

== ENCOUNTER 2022-12-30 17:07 | Outpatient (REF) | payer MEDICARE, SELFPAY | END 2022-12-30 17:08 | disposition home or self-care (01) | LOC: HO.HVNA 17:07 | PROVIDERS: Visit Provider Internal Medicine | DX: Z13.89 Encounter for screening for other disorder (principal) ==

== ENCOUNTER 2023-01-03 14:08 | Outpatient (AMB) | payer MEDICARE, SELFPAY ==
--- NOTE | 2023-01-03 14:14 | MHC.OFFVIS ---
Intake Vital Signs 01/03/23 14:28 Height 6 ft Weight 182 lb BMI 24.7 BP 123/98 H Blood Pressure Location Lt brachial Position Sitting Pulse 115 H Pulse Source Pulse Oximeter Pulse Oximetry (%) 98 Intake Visit Reasons: Ref.[facility],Right knee septic joint Allergies No Known Allergies [No Known Allergies*] Allergy (Verified 01/03/23 14:29) HPI Ref.[facility],Right knee septic joint HPI Details I had seen him in hospital for MRSA bacteremia with right septic knee joint. He has seen Dr Oropeza,last time 12/16. He says knee feels much better and can walk and bend. He has no fever or muscle pain. I did not receive any labs like CK or creatinine after 12/16. He said insurance didnt cover dressing changes per Nursing after last week. He has no complaints with PICC line. He has been following with Orthopedics. Knee is swollen but less pain. [facility] Medical History Pulmonary embolism MRSA bacteremia Arthritis DVT of proximal leg (deep vein thrombosis) Surgical History History of appendectomy H/O knee surgery H/O right knee surgery Social History Household Members: Spouse Housing: House Do you presently have visiting nurse or other home services: No Alcohol intake: former Patient Tobacco Use Status: Never used Tobacco Second Hand Smoke Exposure: No Substance Use Type: Marijuana service: No Review of Systems Const All systems reviewed & are unremarkable except as noted in HPI and below Physical Exam Vital Signs: Last Vital Signs Pulse 115 H 01/03/23 14:28 BP 123/98 H 01/03/23 14:28 Pulse Ox 98 01/03/23 14:28 BMI result Body Mass Index 24.7 Const Other: General: cooperative Orientation/consciousness: patient oriented x3 HEENT Head: Yes normal to inspection Mouth: Normal oral and palatal mucosa present Eyes General: appearance normal, both eyes and all related structures Pupils: Equal, round and reactive pupils present Resp Effort & Inspection: normal respiratory effort Cardio Rate: regular rate Rhythm: regular rhythm GI Palpation (GI): Soft to palpation and nontender General: Yes no CVA tenderness Back/Spine/Pelvis Back: no CVA tenderness Skin General skin exam: no rashes or lesions noted Neuro General: patient oriented x3 Cranial nerves: Yes CN's II-XII intact bilaterally and Yes Equal, round and reactive pupils present Extrem General: Yes normal to inspection Psych Appearance: grossly normal Assessment & Plan Assessment & Plan (1) Septic joint of right knee joint: Comment: He said knee is better. He says he had labs drawn in December but I dont see them. He has no complaints and is seeing Orthopedist. Code(s): M00.9 - Pyogenic arthritis, unspecified Plan: Stop IV antibiotics and pull PICC line on 01/12. Po Doxycycline for two months after. See Orthopedics. Told can recur. No return appointment here. Would get dressing changed on PICC line this week. (2) MRSA bacteremia: Code(s): R78.81 - Bacteremia; B95.62 - Methicillin resistant Staphylococcus aureus infection as the cause of diseases classified elsewhere Orders: Orders Complete Blood Count Auto Diff Today B95.62 - Methicillin resistant Staphylococcus aureus infection as the cause of diseases classified elsewhere, M00.9 - Pyogenic arthritis, unspecified, R78.81 - Bacteremia Liver Panel Today B95.62 - Methicillin resistant Staphylococcus aureus infection as the cause of diseases classified elsewhere, M00.9 - Pyogenic arthritis, unspecified, R78.81 - Bacteremia IR cvc remove any age Today B95.62 - Methicillin resistant Staphylococcus aureus infection as the cause of diseases classified elsewhere, M00.9 - Pyogenic arthritis, unspecified, R78.81 - Bacteremia Creatinine Today B95.62 - Methicillin resistant Staphylococcus aureus infection as the cause of diseases classified elsewhere, M00.9 - Pyogenic arthritis, unspecified, R78.81 - Bacteremia CK, Total+Isoenzymes, Serum Today B95.62 - Methicillin resistant Staphylococcus aureus infection as the cause of diseases classified elsewhere, M00.9 - Pyogenic arthritis, unspecified, R78.81 - Bacteremia Medications: New doxycycline hyclate 100 mg PO BID 30 days 60 tabs 1RF Coding Level of Care Code Est Pt Level 3 (37769) Diagnoses Septic joint of right knee joint M00.9 MRSA bacteremia R78.81; B95.62
[2023-01-03 14:28] VITALS: BP 123/98; PULSE 115; O2SAT 98; BMI 24.7
== END 2023-01-03 14:53 | disposition home or self-care (01) ==
PROVIDERS: PCP Family Medicine; Visit Provider Internal Medicine
DX: M00.9 Pyogenic arthritis, unspecified (principal); R78.81 Bacteremia; B95.62 Methicillin resistant Staphylococcus aureus infection as the cause of diseases classified elsewhere
CPT/HCPCS: 99213

== ENCOUNTER 2023-01-03 14:08 | Outpatient (REF) | payer MEDICARE, SELFPAY ==
[2023-01-03 15:44] LABS: MANUAL DIFF FLAG NO
[2023-01-03 17:01] LABS: Basophils Absolute Auto 0.1 X10*3/uL (0.0-0.2); Eosinophils Absolute Auto 0.2 X10*3/uL (0.0-0.4); Eosinophils Percent Auto 2.9 % (0-4); Hematocrit 39.2 % (42.0-52.0); Hemoglobin 12.6 g/dl (14.0-18.0); Imm Gran Abs Auto 0.06 X10*3/uL (0.00-0.03); Imm Gran Pct Auto 0.8 % (0.0-0.4); Lymphocytes Absolute Auto 1.1 X10*3/uL (1.2-4.9); Lymphocytes Percent Auto 15.9 % (20-40); Mean Corpuscular HGB Conc 32.1 g/dl (31.0-36.0); Mean Corpuscular Hemoglobin 28.6 pg (27.0-33.0); Mean Corpuscular Volume 89.1 fL (80.0-98.0); Mean Platelet Volume 9.6 fL (9.4-12.4); Monocytes Absolute Auto 0.8 X10*3/uL (0.1-1.2); Monocytes Percent Auto 11.1 % (2-11); Neutrophils Absolute Auto 4.9 x10*3/uL (2.0-8.3); Neutrophils Percent Auto 68.3 % (45-73); Platelet Count 344 X10*3/uL (160-400); Red Cell Distribution Width 13.1 % (11.0-16.0); White Blood Count 7.2 X10*3/uL (4.8-10.8)
[2023-01-03 17:48] LABS: Alanine Aminotransferase 32 U/L (0-40); Albumin Level 4.1 g/dL (3.5-5.0); Alkaline Phosphatase 220 U/L (39-117); Aspartate Amino Transferase 19 U/L (5-37); Bilirubin Direct 0.3 mg/dL (0.0-0.5); Bilirubin Total 0.7 mg/dL (0.0-1.0); Estimated Glomerular Filt Rate > 60; Total Protein 7.8 g/dL (6.5-8.0)
[2023-01-07 17:39] LABS: CK-BB 4 % (None Detected); CK-MB 0 % (<5); CK-MM 96 % (95-100); Creatine Kinase Isoenzyme Itrp BB BAND PRESENT.; Creatine Kinase,Total,Serum 51 U/L (44-196)
== END 2023-01-03 14:09 | disposition home or self-care (01) ==
LOC: HO.LAB 14:08
PROVIDERS: PCP Family Medicine; Visit Provider Internal Medicine
DX: M00.9 Pyogenic arthritis, unspecified (principal); R78.81 Bacteremia; B95.62 Methicillin resistant Staphylococcus aureus infection as the cause of diseases classified elsewhere
CPT/HCPCS: 36415; 80076; 82552; 82565; 85025; 99212

== ENCOUNTER → 2023-01-06 13:44 | Outpatient (BNVA) | payer MEDICARE, SELFPAY | PROVIDERS: PCP Family Medicine; Visit Provider Internal Medicine ==

== ENCOUNTER → 2023-01-07 14:10 | Outpatient (BNV) | payer MEDICARE, SELFPAY | PROVIDERS: PCP Family Medicine; Visit Provider Internal Medicine | DX: I82.401 Acute embolism and thrombosis of unspecified deep veins of right lower extremity (principal) | CPT/HCPCS: 99204; 99213 ==

== ENCOUNTER 2023-01-12 13:06 | Outpatient (REF) | payer MEDICARE, SELFPAY | END 2023-01-12 13:07 | disposition home or self-care (01) | LOC: HO.RADIR 13:06 | PROVIDERS: PCP Family Medicine; Visit Provider Internal Medicine | DX: Z13.89 Encounter for screening for other disorder (principal) ==

== ENCOUNTER 2023-03-02 13:00 | Outpatient (REF) | payer MEDICARE, SELFPAY ==
--- NOTE | ~2023-03-02 | US_ITS ---
EXAMINATION: US VENOUS ULTRASOUND WITH DOPPLER LOWER EXTREMITY, RIGHT CLINICAL INFORMATION: History of DVT COMPARISON: Lower extremity DVT ultrasound 12/08/2022 TECHNIQUE: Ultrasound of the deep veins is performed from the hip to the calf with compression sonography and color and pulse Doppler assessment. Spectral analysis with color-flow imaging is performed. FINDINGS: There is normal venous compression and respiratory variation and augmented flow throughout the deep venous system. The visualized common femoral vein, superficial femoral vein, profunda femoral vein, popliteal vein, and the trifurcation region shows no evidence of deep venous thrombosis. There is no significant popliteal fossa cyst. Again seen is superficial venous thrombosis in the small saphenous vein which appears progressed from prior and is now occlusive, previously nonocclusive. Large suprapatellar joint effusion decreased from prior US/US venous duplex LE RT IMPRESSION: 1. No DVT demonstrated in the right lower extremity. 2. Again seen is superficial venous thrombosis in the small saphenous vein which appears progressed from prior and is now occlusive, previously nonocclusive. 3. Large suprapatellar joint effusion decreased from prior.
== END 2023-03-02 13:01 | disposition home or self-care (01) ==
LOC: HO.US 13:00
PROVIDERS: PCP Family Medicine; Visit Provider Internal Medicine
DX: I82.491 Acute embolism and thrombosis of other specified deep vein of right lower extremity (principal)
CPT/HCPCS: 93971

== ENCOUNTER 2023-05-10 15:01 | Outpatient (AMB) | payer MEDICARE, SELFPAY ==
[2023-05-10 15:37] VITALS: BMI 26.3
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
== END 2023-05-10 16:09 | disposition home or self-care (01) ==
PROVIDERS: PCP Family Medicine; Visit Provider Surgery Vascular Surgery
DX: I83.11 Varicose veins of right lower extremity with inflammation (principal)
CPT/HCPCS: 99203

== ENCOUNTER → 2023-05-10 15:01 | Outpatient (BNVA) | payer MEDICARE, SELFPAY | PROVIDERS: PCP Family Medicine; Visit Provider Surgery Vascular Surgery | DX: I83.11 Varicose veins of right lower extremity with inflammation (principal) | CPT/HCPCS: 99202 ==

== ENCOUNTER 2023-05-18 10:23 | Outpatient (REF) | payer MEDICARE, SELFPAY ==
--- NOTE | ~2023-05-18 | US_ITS ---
EXAMINATION: US LOWER EXTREMITY VENOUS (REFLUX EXAM), BILATERAL CLINICAL INFORMATION: Chronic venous insufficiency with lower extremity varicose veins, pain and swelling. History of prior deep venous thrombosis and small saphenous vein thrombophlebitis COMPARISON: Ultrasound from 03/02/2023 TECHNIQUE: Color flow triplex imaging and compression Doppler was performed to evaluate both the deep and the superficial systems bilaterally. To evaluate the superficial system, the examination was performed in the upright position. Color-flow Doppler ultrasound and compression ultrasound were utilized. In addition, maneuvers were utilized to demonstrate reflux. FINDINGS: 1. DEEP VENOUS ULTRASOUND OF THE RIGHT LOWER EXTREMITY: Common Femoral Vein: Compressible, normal respiratory variation and augmented flow. Femoral Vein: Compressible, normal color flow and augmentation. Popliteal Vein: Compressible, normal augmentation. Deep Reflux: Deep venous reflux is seen within the common femoral vein, superficial femoral vein and popliteal vein which could be sequelae from prior deep venous thrombosis. Reflux ranges from 1540 ms to 2364 ms There is no evidence of a Gautam's cyst. 2. SUPERFICIAL ULTRASOUND WITH DOPPLER OF RIGHT LOWER EXTREMITY: GREAT SAPHENOUS VEIN: Saphenofemoral Junction: 0.6 cm; Reflux: 2116 ms Proximal Thigh: 0.5 cm; Reflux: 1664 ms Mid Thigh: 0.5 cm; Reflux: 2168 ms Distal Thigh: 0.4 cm; Reflux: 0 ms At Knee: 0.5 cm; Reflux: 2220 ms Proximal Calf: 0.5 cm; Reflux: 2312 ms Mid Calf: 0.4 cm; Reflux: 0 ms Distal Calf: 0.3 cm; Reflux: 0 ms DUPLICATED MEDIAL GREAT SAPHENOUS VEIN: Diameter: None imaged Reflux: NA DUPLICATED LATERAL GREAT SAPHENOUS VEIN: Diameter: None imaged Reflux: NA SMALL SAPHENOUS VEIN: Saphenopopliteal Junction: 1.0 cm; Reflux: 1992 ms Proximal: 0.8 cm; Reflux: 1780 ms Distal: 0.5 cm; Reflux: 1952 ms VEIN OF GIACOMINI: Size: NA Reflux: NA PERFORATORS: Location: None significant Size: NA Reflux: NA VARICOSITIES: Location: Posterior mid calf off the small saphenous vein, proximal medial calf off the great saphenous Size: 0.4 to 0.6 cm Reflux: Ranging from 1668 ms to 2468 ms 3. DEEP VENOUS ULTRASOUND OF THE LEFT LOWER EXTREMITY: Common Femoral Vein: Compressible, normal respiratory variation and augmented flow. Femoral Vein: Compressible, normal color flow and augmentation. Popliteal Vein: Compressible, normal augmentation. Deep Reflux: There is no evidence of reflux in the deep system in either the common femoral vein, superficial femoral or the popliteal vein. There is no evidence of a Gautam's cyst. Right knee joint effusion is present 4. SUPERFICIAL ULTRASOUND WITH DOPPLER OF LEFT LOWER EXTREMITY: GREAT SAPHENOUS VEIN: Saphenofemoral Junction: 0.8 cm; Reflux: 0 ms Proximal Thigh: 0.5 cm; Reflux: 0 ms Mid Thigh: 0.4 cm; Reflux: 1684 ms Distal Thigh: 0.4 cm; Reflux: 2176 ms At Knee: 0.4 cm; Reflux: 1920 ms Proximal Calf: 0.4 cm; Reflux: 0 ms Mid Calf: 0.3 cm; Reflux: 0 ms Distal Calf: 0.4 cm; Reflux: 0 ms DUPLICATED MEDIAL GREAT SAPHENOUS VEIN: Diameter: None imaged Reflux: NA DUPLICATED LATERAL GREAT SAPHENOUS VEIN: Diameter: None imaged. Reflux: NA SMALL SAPHENOUS VEIN: Saphenopopliteal Junction: 0.2 cm; Reflux: 0 ms Proximal: 0.2 cm; Reflux: 0 ms Distal: 0.3 cm; Reflux: 0 ms VEIN OF GIACOMINI: Size: NA Reflux: NA PERFORATORS: Location: Proximal and mid calf into the great saphenous Size: 0.3 to 0.4 cm Reflux: None VARICOSITIES: Location: Proximal calf Size: 0.4 cm Reflux: None US/US venous insuf bilat IMPRESSION: Right: Severe reflux within the right great saphenous vein throughout the thigh and calf. Severe reflux throughout the small saphenous vein. Multiple branching varicose veins with severe reflux as described above. Deep venous reflux also seen throughout the right lower extremity. No evidence of acute deep venous ecchymosis Left: Segmental areas of reflux within the left great saphenous vein from the mid to thigh to the knee. Varicose veins in the proximal calf
== END 2023-05-18 10:24 | disposition home or self-care (01) ==
LOC: HO.US 10:23
PROVIDERS: PCP Family Medicine; Visit Provider Surgery Vascular Surgery
DX: I83.11 Varicose veins of right lower extremity with inflammation (principal)
CPT/HCPCS: 93970

== ENCOUNTER 2023-06-23 10:13 | Outpatient (AMB) | payer MEDICARE, SELFPAY ==
[2023-06-23 10:16] VITALS: BMI 26.3
--- NOTE | 2023-06-23 10:16 | MHC.OFFVIS ---
Intake Vital Signs 06/23/23 10:16 Height 6 ft Weight 194 lb BMI 26.3 Intake Visit Reasons: F/U 05/18/23 Intake Note: Follow up 05/18/23 w/ hx of GSV Thrombus s/p knee surgery last Nov 2022. Has hx of older thrombus as well, got worse after most recent issue in Nov. Pt states legs feel okay today. Has had swelling for 4 + years. Pt has 2 more days of Eliquis, unsure if he should continue? Accompanied by: Self / Same As Patient Allergies No Known Allergies [No Known Allergies*] Allergy (Verified 06/23/23 10:22) HPI F/U 05/18/23 HPI Details Very pleasant 68-year-old gentleman presents for follow-up regarding venous insufficiency. He had developed an episode of severe thrombophlebitis which she was actually placed on anticoagulation for. He continues to affect his legs as he has quite an active gentleman and he works as an emergency room PA. He now presents for follow-up. [facility] Medical History Pulmonary embolism MRSA bacteremia Arthritis DVT of proximal leg (deep vein thrombosis) Surgical History History of appendectomy H/O knee surgery H/O right knee surgery Social History Household Members: Spouse Housing: House Do you presently have visiting nurse or other home services: No Alcohol intake: former Patient Tobacco Use Status: Never used Tobacco Second Hand Smoke Exposure: No Substance Use Type: Marijuana service: No Review of Systems Const Reports as per HPI ENT Reports no additional complaints Card Denies chest pain, Denies chest pain at rest and Denies chest pain with activity Resp Denies chest congestion and Denies cough GI Reports no additional complaints Musc Details: pain over varicosities, aching of lower extremities, swelling, cramping, heaviness and tiredness, itching Denies abnormal gait Skin/Breast Reports pruritus and Denies wounds Neuro Reports no additional complaints and Denies abnormal gait Psych Denies no additional complaints Physical Exam Vital Signs: BMI result Body Mass Index 26.3 Const General: cooperative, healthy appearing and comfortable Orientation/consciousness: oriented to person, oriented to place and oriented to time Neck Carotids: no bruits Chest Chest palpation & inspection: normal inspection of the chest and normal palpation of entire chest wall Resp Effort & Inspection: normal respiratory effort and able to speak in complete sentences Cardio Rate: regular rate Heart sounds: S1 normal heart sound present and S2 normal heart sound present Peripheral pulses: Peripheral pulses 2+ throughout GI Inspection: Yes normal to inspection Skin Other: +2 edema, large rope-like varicosities greater than 4 mm bilateral calf and thigh CEAP Classification C4 - skin color changes Ep - Etiology Primary As - superficial veins P - reflux General skin exam: dry skin Neuro General: oriented to person, oriented to place and oriented to time Extrem Right lower extremity: full ROM, normal capillary refill and edema Left lower extremity: full ROM, normal capillary refill and edema Psych Mental Status: mental status grossly normal Results Reviewed Results Reviewed: Brief summary of venous insufficiency testing is as follows: right great saphenous vein: Positive right small saphenous vein: Positive right accessory vein: none present left great saphenous vein: Positive left small saphenous vein: negative left accessory vein: none present Please note there is no evidence of any venous aneurysms or significant tortuosity Assessment & Plan Assessment & Plan (1) Varicose veins of right lower extremity with inflammation: Code(s): I83.11 - Varicose veins of right lower extremity with inflammation Plan: This patient has varicose veins with inflammation. They continue to be a source of discomfort for the patient. The patient has tried conservative treatment with compression, leg elevation and exercise program for over 3 months time. They have been compliant with all treatment. This has provided minimal relief for the patient. I do not anticipate this course of treatment will alter the underlying etiology. The patient has been scheduled for lower extremity venous treatment inclusive of --- right great saphenous vein radiofrequency ablation. Risks, benefits, and complications of this procedure has been discussed in detail with the patient including but not limited to bleeding, infection, and the development of a DVT. The patient has demonstrated a clear understanding and has consented. We will schedule the patient as soon as possible. In addition the patient can stop Eliquis repeat bedside ultrasound showed that the saphenofemoral junction appeared to be clean. Thank you for allowing us to participate in this patient's care. If there are any questions or concerns please do not hesitate to contact us. Coding Level of Care Code Est Pt Level 4 (10670) Diagnoses Varicose veins of right lower extremity with inflammation I83.11
== END 2023-06-23 11:05 | disposition home or self-care (01) ==
PROVIDERS: PCP Family Medicine; Visit Provider Surgery Vascular Surgery
DX: I83.11 Varicose veins of right lower extremity with inflammation (principal)
CPT/HCPCS: 99214

== ENCOUNTER → 2023-06-23 10:13 | Outpatient (BNVA) | payer MEDICARE, SELFPAY | PROVIDERS: PCP Family Medicine; Visit Provider Surgery Vascular Surgery | DX: I83.11 Varicose veins of right lower extremity with inflammation (principal) | CPT/HCPCS: 99212 ==

== ENCOUNTER 2023-07-22 07:31 | Outpatient (AMB) | payer MEDICARE, SELFPAY ==
[2023-07-22 07:54] VITALS: BMI 26.3
--- NOTE | 2023-07-22 07:54 | MHC.OFFVIS ---
Vital Signs 07/22/23 07:54 Height 6 ft Weight 194 lb BMI 26.3 Intake Visit Reasons: Right GSV RFA Accompanied by: Self / Same As Patient Allergies No Known Allergies [No Known Allergies*] Allergy (Verified 07/22/23 07:55) [facility] Medical History Pulmonary embolism MRSA bacteremia Arthritis DVT of proximal leg (deep vein thrombosis) Surgical History History of appendectomy H/O knee surgery H/O right knee surgery Social History Household Members: Spouse Housing: House Do you presently have visiting nurse or other home services: No Alcohol intake: former Patient Tobacco Use Status: Never used Tobacco Second Hand Smoke Exposure: No Substance Use Type: Marijuana service: No Physical Exam Vital Signs: BMI result Body Mass Index 26.3 Office Procedures Vascular Office Procedure Details Details: Diagnosis: Varicose veins with inflammation of right leg Procedure: Endovenous radiofrequency ablation of the right great saphenous vein(s) of the lower extremity. Anesthesia: Local infiltration 5 cc, Tumescent 400 cc. Estimated Blood Loss: Minimal Specimen: Varicose veins The patient was transferred to the procedure suite and the insufficient saphenous vein was mapped by ultrasound and diagrammed on the overlying skin. The depth and diameter of the vein(s) to be treated was documented. The varicose tributary veins and suitable access sites were identified and mapped as well. The patient was then positioned supine on the procedure table. The affected limb was prepped and draped in the usual sterile fashion. The RF catheter was placed on the sterile field, flushed and wiped down, prepared, and connected by a sterile cable. The patient was placed in reverse- Trendelenburg position and local anesthesia was instilled in the skin overlying the access site. A skin incision was made overlying the identified and mapped great saphenous vein entry site. The vein was accessed using ultrasound guidance and the Seldinger technique, a guide wire was introduced through the needle, which was then exchanged over the guide wire for a 6F sheath, which was secured in place. The guide wire was removed and the sheath was flushed. The RF catheter was placed into the vein through the sheath and preferentially, imaging was used to place the catheter tip just inferior to the superficial epigastric vein to preserve normal physiological flow in that vein. Additionally, it was confirmed by ultrasound guidance that the catheter tip was also placed a minimum of 1.5cm distal to the saphenofemoral junction. After the RF catheter position was verified by ultrasound, tumescent anesthesia was infiltrated, under ultrasound guidance, precisely into the perivenous compartment along the entire length of vein from the entry site to the saphenofemoral junction until a halo of fluid was noted around the vein. The patient was then placed in Trendelenburg position to further exsanguinate the superficial venous system. After RF catheter position was again confirmed with ultrasound imaging, and under direct external compression along the length of the heating element, RF energy was applied. The vein was segmentally ablated by heating a 8 cm segment and then indexing the catheter forward by 7.5 cm until the treatment length is completed. Device temperature was maintained at 120 plus or minus 5 degrees C with an initial power level of 40W dropping to below 20W for each treatment. Total vein length treated 48 cm Total cycles of RF 7. Repeat ultrasound of the saphenous vein was performed, confirming successful treatment. The catheter and sheath were withdrawn and hemostasis established with direct pressure. After assuring hemostasis, the skin incision over the saphenous vein was closed with a bandage and a compression wrap, and/ or graduated compression stocking was applied from the level of the foot to the most proximal level of the thigh. 04351 - Endovenous RF, 1st Vein All charges added?: Procedure code (CPT) selection complete Assessment & Plan Assessment & Plan (1) Varicose veins of right lower extremity with inflammation: Comment: 07/22/2023 - right great saphenous vein radiofrequency ablation Code(s): I83.11 - Varicose veins of right lower extremity with inflammation Category: Medical Plan: See above Coding Level of Care Code Procedure Only Diagnoses Varicose veins of right lower extremity with inflammation I83.11 CPT Codes Details - Vascular 1: 49663 - Endovenous RF, 1st Vein ([id number])
== END 2023-07-22 09:30 | disposition home or self-care (01) ==
PROVIDERS: PCP Family Medicine; Visit Provider Surgery Vascular Surgery
DX: I83.11 Varicose veins of right lower extremity with inflammation (principal)
CPT/HCPCS: 36475

== ENCOUNTER → 2023-07-22 07:31 | Outpatient (BNVA) | payer MEDICARE, SELFPAY | PROVIDERS: PCP Family Medicine; Visit Provider Surgery Vascular Surgery | DX: I83.11 Varicose veins of right lower extremity with inflammation (principal) | CPT/HCPCS: 36475 ==

== ENCOUNTER 2023-07-25 12:31 | Outpatient (REF) | payer MEDICARE, SELFPAY ==
--- NOTE | ~2023-07-25 | US_ITS ---
EXAMINATION: US VENOUS ULTRASOUND WITH DOPPLER LOWER EXTREMITY, RIGHT CLINICAL INFORMATION: Please rule out DVT in the right lower extremity status post GSV RFA COMPARISON: Venous reflux ultrasound 05/18/2023 TECHNIQUE: Ultrasound of the deep veins is performed from the hip to the calf with compression sonography and color and pulse Doppler assessment. Spectral analysis with color-flow imaging is performed. FINDINGS: There is normal venous compression and respiratory variation and augmented flow. The visualized common femoral vein, superficial femoral vein, profunda femoral vein, popliteal vein, and the trifurcation region shows no evidence of deep venous thrombosis. The right great saphenous vein is closed. Right popliteal fossa cyst measuring 4.7 x 2.3 x 4.5 cm. US/US venous duplex LE RT IMPRESSION: 1. The right great saphenous vein is closed after RFA. 2. No DVT demonstrated in the right lower extremity.
== END 2023-07-25 12:32 | disposition home or self-care (01) ==
LOC: HO.US 12:31
PROVIDERS: PCP Family Medicine; Visit Provider Surgery Vascular Surgery
DX: M79.604 Pain in right leg (principal)
CPT/HCPCS: 93971

== ENCOUNTER 2023-08-18 13:04 | Outpatient (AMB) | payer MEDICARE, SELFPAY ==
--- NOTE | 2023-08-18 13:08 | A.OFFVIS_ITS ---
Intake Visit Reasons: 4 week follow up Right GSV RFA 07/22/23 Intake Note: Patient presents for right gsv rfa . States he is feeling good no complaints. Accompanied by: Self / Same As Patient Allergies No Known Allergies [No Known Allergies*] Allergy (Verified 08/18/23 13:10) [facility] HPI 4 week follow up Right GSV RFA 07/22/23: Details: Very pleasant 68-year-old gentleman presents for follow-up status post right great saphenous vein ablation. He reports he is doing extremely well with this. Overall pain and discomfort has decreased. He does have large cluster varicosities in the right calf. They appeared to be doing okay for right now. He is concerned about his left leg as well. He now presents for routine follow- up. [facility] Medical History Pulmonary embolism MRSA bacteremia Arthritis DVT of proximal leg (deep vein thrombosis) Surgical History History of appendectomy H/O knee surgery H/O right knee surgery Social History Household Members: Spouse Housing: House Do you presently have visiting nurse or other home services: No Alcohol intake: former Patient Tobacco Use Status: Never used Tobacco Second Hand Smoke Exposure: No Substance Use Type: Marijuana service: No Review of Systems Const Reports as per HPI ENT Reports no additional complaints Card Denies chest pain, Denies chest pain at rest and Denies chest pain with activity Resp Denies chest congestion and Denies cough GI Reports no additional complaints Musc Details: pain over varicosities, aching of lower extremities, swelling, cramping, heaviness and tiredness, itching Denies abnormal gait Skin/Breast Reports pruritus and Denies wounds Neuro Reports no additional complaints and Denies abnormal gait Psych Denies no additional complaints Physical Exam Const General: cooperative, healthy appearing and comfortable Orientation/consciousness: oriented to person, oriented to place and oriented to time Neck Carotids: no bruits Chest Chest palpation & inspection: normal inspection of the chest and normal palpation of entire chest wall Resp Effort & Inspection: normal respiratory effort and able to speak in complete sentences Cardio Rate: regular rate Heart sounds: S1 normal heart sound present and S2 normal heart sound present Peripheral pulses: Peripheral pulses 2+ throughout GI Inspection: Yes normal to inspection Skin Other: +2 edema, large rope-like varicosities greater than 4 mm right calf CEAP Classification C4 - skin color changes Ep - Etiology Primary As - superficial veins P - reflux General skin exam: dry skin Neuro General: oriented to person, oriented to place and oriented to time Extrem Right lower extremity: full ROM, normal capillary refill and edema Left lower extremity: full ROM, normal capillary refill and edema Psych Mental Status: mental status grossly normal Results Reviewed Results Reviewed: Brief summary of venous insufficiency testing is as follows: right great saphenous vein: Ablated right small saphenous vein: Positive right accessory vein: none present left great saphenous vein: Positive left small saphenous vein: negative left accessory vein: none present Please note there is no evidence of any venous aneurysms or significant tortuosity Assessment & Plan Assessment & Plan (1) Varicose veins of right lower extremity with inflammation: Comment: 07/22/2023 - right great saphenous vein radiofrequency ablation Code(s): I83.11 - Varicose veins of right lower extremity with inflammation Category: Medical Plan: He will need future small saphenous vein ablation along with microphlebectomy. We will address left leg 1st (2) Varicose veins of left lower extremity with inflammation: Code(s): I83.12 - Varicose veins of left lower extremity with inflammation Category: Medical Plan: This patient has varicose veins with inflammation. They continue to be a source of discomfort for the patient. The patient has tried conservative treatment with compression, leg elevation and exercise program for over 3 months time. They have been compliant with all treatment. This has provided minimal relief for the patient. I do not anticipate this course of treatment will alter the underlying etiology. The patient has been scheduled for lower extremity venous treatment inclusive of --- left great saphenous vein Cyanoacralate ablation. Risks, benefits, and complications of this procedure has been discussed in detail with the patient including but not limited to bleeding, infection, and the development of a DVT. The patient has demonstrated a clear understanding and has consented. We will schedule the patient as soon as possible. Thank you for allowing us to participate in this patient's care. If there are any questions or concerns please do not hesitate to contact us. Coding Level of Care Code Est Pt Level 4 (11390) Diagnoses Varicose veins of right lower extremity with inflammation I83.11 Varicose veins of left lower extremity with inflammation I83.12
== END 2023-08-18 13:52 | disposition home or self-care (01) ==
PROVIDERS: PCP Family Medicine; Visit Provider Surgery Vascular Surgery
DX: I83.11 Varicose veins of right lower extremity with inflammation (principal); I83.12 Varicose veins of left lower extremity with inflammation
CPT/HCPCS: 99214

== ENCOUNTER → 2023-08-18 13:04 | Outpatient (BNVA) | payer MEDICARE, SELFPAY | PROVIDERS: PCP Family Medicine; Visit Provider Surgery Vascular Surgery | DX: I83.11 Varicose veins of right lower extremity with inflammation (principal); I83.12 Varicose veins of left lower extremity with inflammation | CPT/HCPCS: 99212 ==